=== PATIENT | female | born 1965 | race Caucasian/White ===

== ENCOUNTER 2020-11-11 21:36 | Observation (INO) | payer OTHER, SELFPAY ==
--- NOTE | ~2020-11-11 | XR_ITS ---
XR chest 2V DATE: 11/12/2020 01:39 INDICATION: Shortness of breath, cough, elevated d-dimer TECHNIQUE: AP and lateral views COMPARISON: None FINDINGS: Heart size appears within upper limits of normal. No hilar or mediastinal enlargement is ev ident. No pulmonary infiltrate or consolidation is detected. IMPRESSION: No active cardiopulmonary disease Reviewed, dictated and finalized at location A.
--- NOTE | ~2020-11-11 | CT_ITS ---
EXAMINATION: CTA chest PE protocol DATE: 11/12/2020 03:27 INDICATION: Shortness breath, cough, elevated d-dimer TECHNIQUE: Computed tomography angiography (CTA) of the chest was performed with 100 mL Omnipaque-350 intravenous contrast timed to evaluate the pulmonary arteries. Coronal maximum intensity projection 3D-reconstructions were created by the technologist. Automated exposure control and iterative reconst ruction technique were employed. Exam dose: 874.05 mGy-cm total exam DLP. COMPARISON: 11/12/2020 AP and lateral chest FINDINGS: There is diagnostic contrast enhancement of the pulmonary arteries and mild posterior subse gmental right lower lobe pulmonary embolism. No thoracic aortic aneurysm or dissection. Normal heart size. No pericardial or pleural effusion. Left thyroid goiter with calcification. Calcified left upper lobe and left lower lobe pulmonary granuloma. Calcified left hilar and mediastinal nodes consistent with old granulomatous disease. Mild right mimi r lymph node prominence. Emphysematous changes are noted, particularly at the upper lobes. No pulmonary consolidation. Small sliding hiatal hernia. The adrenal glands are of normal morphology. Included skeletal structures are unremarkable. IMPRESSION: Mild right lower lobe pulmonary embolism Emphysema Left thyroid goiter with calcification Mild right hilar lymph node prominence Old pulmonary granulomatous disease Reviewed, dictated and finalized at Location [facility]. Reviewed, dictated and finalized at location A.
[2020-11-11 21:59] VITALS: BP 135/84; PULSE 79; RESP 20; TEMP 36.4; O2SAT 95
[2020-11-12] VITALS (15 sets, daily range): BP systolic 136–160; BP diastolic 59–81; PULSE 59–79; RESP 16–20; TEMP 36.4–36.9; O2SAT 96–99
--- NOTE | 2020-11-12 00:53 | ED.GENADULT ---
HPI - General Adult General Chief complaint: Unspecified Stated complaint: Shob Time Seen by Provider: 11/12/20 00:45 Source: patient Mode of arrival: ambulatory Limitations: no limitations History of Present Illness HPI narrative: This is a 55 year old female with history of smoking, COPD, CHF who presents for evaluation of shortness of breath. She states she has been on antibiotics for 14 days to treat URI and otitis media. She reports continued shortness of breath since . She was evaluated at [facility] with labs and an xray. She reports she was told she had URI and she was started on Augmentin. She thinks her COVID was negative on . She reports wheezing, sob, chest tightness. She denies fever, chills, nausea or vomiting. She has chronic swelling to her leg. She reports mild nonproductive cough. She uses ProAir inhaler twice a day and Symbicort. Related Data Home Medications Medication Instructions Recorded Confirmed albuterol sulfate 11/12/20 albuterol sulfate [Ventolin HFA] INHALATION 11/12/20 11/12/20 atorvastatin 11/12/20 budesonide-formoterol [Symbicort] INHALATION 11/12/20 bupropion HCl PO 11/12/20 bupropion HCl PO 11/12/20 clonazepam 11/12/20 estradiol mg 11/12/20 fluoxetine mg 11/12/20 furosemide 11/12/20 losartan 11/12/20 ropinirole mg 11/12/20 tiotropium bromide [Spiriva with INHALATION 11/12/20 HandiHaler] Allergies Allergy/AdvReac Type Severity Reaction Status Date / Time No Known Allergies Allergy Mild Verified 11/12/20 07:09 Review of Systems Review of Systems: All systems reviewed & are unremarkable except as noted in HPI and below PMFSH Past Medical History Medical History (Updated 11/12/20 @ 07:53 by Miri Estrada MD) CHF (congestive heart failure) COPD (chronic obstructive pulmonary disease) Family History Family History Other Cerebrovascular accident Family history of alcoholism Social History Social History Smoking packs per day: 1 Smoking cigarettes per day: 20.0 Years smoked: 35 Smoking pack-years: 35.00 Smoking status: Current every day smoker Tobacco type: cigarettes Alcohol intake: former Substance use: never Spiritual care concerns: No Exam Narrative: Exam Narrative: GENERAL: , well-nourished, obese, tachypnea HEAD: Normocephalic, atraumatic EYES: PERRLA and EOMI, conjunctiva clear without discharge NOSE: Nares clear, no rhinorrhea or epistaxis THROAT:Mucous membranes moist, Oropharynx normal without erythema, exudate, peritonsillar swelling or fluctuance NECK: Supple, without lymphadenopathy or mass RESPIRATORY: Airway patent, Respirations non-labored,able to speak in complete sentences, diffuse expiratory wheezing HEART: Regular rate and rhythm. No murmur heard. Normal peripheral pulses. ABDOMEN: Soft, nontender, nondistended, normal active bowel sounds. No masses. No rebound or guarding, No organomegaly. EXTREMITIES: bilateral nonpitting leg swelling normal strength with full range of motion. SKIN: Warm, dry, normal color without rash NEURO: Alert and oriented x3. CN 2-12 grossly intact. No focal deficits. PSYCH: Normal mood and affect. Course Reevaluation(s) Reevaluation #1: PAtient understands that she will be admitted for treatment of COPD and PE. Date: 11/12/20 Time: 04:30 Vital Signs Vital signs: Vital Signs Temperature 97.6 F 11/11/20 21:59 Pulse Rate 79 11/11/20 21:59 Respiratory Rate 20 11/11/20 21:59 Blood Pressure 135/84 11/11/20 21:59 Pulse Oximetry 95 11/11/20 21:59 Temperature 97.6 F 11/11/20 21:59 Pulse Rate 67 11/12/20 05:59 Respiratory Rate 18 11/12/20 05:59 Blood Pressure 138/75 11/12/20 05:59 Pulse Oximetry 97 11/12/20 05:59 Medical Decision Making Vital Signs Vital Signs: Vital Signs Temperature 97.6 F 11/11/20 21:59 Pulse Rate 79 11/11/20 21:59 R
--- NOTE | 2020-11-12 00:56 | ECG_ITS ---
Measurements Intervals [place] Rate: 67 P: 37 WI: 213 QRS: 15 QRSD: 83 T: 33 QT: 417 QTc: 442 Interpretive Statements SINUS RHYTHM WITH FIRST DEGREE AV BLOCK LOW QRS VOLTAGE IN PRECORDIAL LEADS CANNOT RULE OUT SEPTAL INFARCT, AGE INDETERMINATE BASELINE ARTIFACT- I, III, AVR, AVL, AVF ABNORMAL ECG Electronically Signed On 11-12-2020 7:19:11 CDT by Luigi Villarreal D.O.
[2020-11-12] MEDS: ALBUTEROL SULFATE NEB 2.5 MG/0.5 ML INH 5 MG INHALATION (01:03)
[2020-11-12] MEDS: IPRATROPIUM BR 0.02% INH SOLN 0.5 MG/2.5 ML VIAL INHALATION (01:03)
[2020-11-12 01:18] LABS: Alveolar/Arterial O2 Gradient 24.2 mmHg; Base Excess ABG 0.7 mEq/l (+/-2.0); Carboxyhemoglobin 2.6 % THb (0-2.0); Device ROOM AIR; Fractional Inspired Oxygen 21 %; HCO3 ABG 24.9 mEq/l (22.0-26.0); Methemoglobin ABG 0.1 %THb (0-1.5); Modified Allen's Test Pass; Oxygen Content ABG 17.1 %vol (16.0-22.0); Oxyhemoglobin 93.2 % THb (90.0-100.0); PCO2 ABG 38.6 mmHg (35.0-45.0); PO2 ABG 79.3 mmHg (80.0-100.0); PO2 FiO2 Ratio Arterial Blood 3.78 %; Reduced Hemoglobin 4.1 %THb (0-5.0); Site Drawn RIGHT RADIAL; pH ABG 7.428 (7.350-7.450)
[2020-11-12] MEDS: predniSONE 20 MG TABLET 60 MG PO (01:44)
[2020-11-12 02:27] LABS: Basophils Absolute Auto 0.1 K/mm3 (0.0-0.1); Basophils Percent Auto 0.4 % (0.2-1.2); Eosinophils Absolute Auto 0.3 K/mm3 (0-0.3); Eosinophils Percent Auto 1.9 % (0-4.4); Hematocrit 40.5 % (37.0-47.0); Hemoglobin 12.8 g/dL (12.0-15.0); Immature Granulocyte Absolute 0.06 K/mm3 (0.00-0.031); Immature Granulocyte Percent A 0.4 % (0-0.5); Lymphocytes Absolute Auto 5.49 K/mm3 (0.9-3.2); Lymphocytes Percent Auto 40.9 % (18.3-44.2); Mean Corpuscular HGB Conc 31.6 g/dl (32-36); Mean Corpuscular Hemoglobin 25.8 pg (26-34); Mean Corpuscular Volume 81.7 fl (80-100); Monocytes Percent Auto 7.2 % (2.6-8.5); Neutrophils Absolute Auto 6.6 K/mm3 (1.3-6.7); Neutrophils Percent Auto 49.2 % (45.5-73.1); Platelet Count Result 261 k/mm3 (150-375); Red Blood Count 4.96 M/mm3 (4.2-5.4); Red Cell Distribution Width 14.6 % (11.5-14.5); White Blood Count 13.4 K/mm3 (4.5-10.0)
[2020-11-12 02:31] LABS: INR 0.9
[2020-11-12 02:32] LABS: Alanine Aminotransferase 18 U/L (4-35); Alkaline Phosphatase 136 U/L (38-126); Anion Gap 8 mmol/L (8-16); Aspartate Amino Transferase 27 U/L (14-36); Bilirubin,Total 0.2 mg/dL (0.2-1.3); Blood Urea Nitrogen 12 mg/dL (7-17); Calcium 9.1 mg/dL (8.4-10.2); Carbon Dioxide 26 mmol/L (22-30); Chloride 105 mmol/L (98-107); Estimated CRCL calculation 75 ml/min; Estimated Glomerular Filt Rate > 60; Glucose 111 mg/dL (65-105); Partial Thromboplastin Time 34.3 SECONDS (22.3-36.8); Potassium 3.6 mmol/L (3.4-5.0); Sodium 139 mmol/L (137-145)
[2020-11-12 02:34] LABS: D Dimer 0.86 ug/mL (<0.48)
[2020-11-12 02:40] LABS: Troponin I < 0.012 ng/mL (0.000-0.034)
[2020-11-12 02:41] LABS: NT Pro B Type Natriuretic Pept 161 PG/ML (5-100)
[2020-11-12 02:46] LABS: Platelet Estimate Adequate (Adequate)
[2020-11-12 02:47] LABS: Atypical Lymphocytes Present
[2020-11-12] MEDS: ENOXAPARIN 100 MG/ML SYRINGE SUB-Q (06:28)
--- NOTE | 2020-11-12 06:45 | PC.NURSE ---
This patient, Lela Molina, was admitted to [facility] Surg Room 309-01. Patient/family oriented to hospital policies and general routines including ID bracelet, bed and alarms, visiting hours, pain management, procedures, bathroom and other care routines, personal items, smoking policy, room service/diet, and visiting hours. Information on how to activate the Rapid Response Team has been discussed. Patient/Family are encouraged to report perceived risks to care and to ask questions if they do not understand what they are told or what they should do.
--- NOTE | 2020-11-12 15:38 | PM.IMPN ---
Progress Note: A&P Assessment and Plan (1) Pulmonary embolism: Code(s): I26.99 - Other pulmonary embolism without acute cor pulmonale Status: Acute Assessment and Plan: Mild right lower lobe pulmonary embolism Subsegmental PE as seen on CTA, Pt stated on xarelto (2) COPD (chronic obstructive pulmonary disease): Code(s): J44.9 - Chronic obstructive pulmonary disease, unspecified Status: Acute Assessment and Plan: Pt started on breathing treatment for wheezy lungs, monitor tonite and discharge tomorrow AM. (3) CHF (congestive heart failure): Code(s): I50.9 - Heart failure, unspecified Status: Inactive Assessment and Plan: Increase to Lasix 40 mg po daily. Pt to immobilse with Physical theraphy. Pt to [place] cardi[place]. Wants to establish PCp here. (4) Tobacco abuse: Code(s): Z72.0 - Tobacco use Status: Acute Assessment and Plan: Nicitine patch offered, pt advised to quit smoking Subjective Date/time seen: 11/12/20 15:38 Interval history: 55 year old female with history of smoking, COPD, CHF who presents for evaluation of shortness of breath. Pt usually sees [place] doctors. Pt states she has been on antibiotics for ear infection and URI. Pt felt sob came in to hospital for evaluation. Pt denies covid exposure has been tested negative herself. Pt is a heavy smoker, daughter would like her to quit. Pt states she feels mild SOB and wheezy chest and pain in her back. Review of Systems Review of Systems: All systems reviewed & are unremarkable except as noted in HPI and below Exam Const: General: cooperative and healthy appearing; No in distress Nutritional Appearance: other (morbidly obese ) Orientation/consciousness: oriented to person HENMT: Head: normal to inspection Resp: Effort & Inspection: no respiratory distress Auscultation: no rhonchi and wheezes (BL wheezy lungs ) Cardio: Rate: regular rate Rhythm: regular rhythm GI: Inspection: normal to inspection GI Palp: No abdominal tenderness, No Guarding due to palpation present (GI) and No Hepatomegaly present Auscultation: normal bowel sounds Neuro: General: oriented to person Extrem: General: pedal edema present (3+ pitting edema ) Objective Data Vital Signs Vital Signs: Vital Signs - 24 hr 11/11/20 21:59 11/12/20 01:01 11/12/20 01:20 Temperature 36.4 C Pulse Rate 79 60 67 Respiratory Rate 20 18 20 Blood Pressure 135/84 Pulse Oximetry 95 11/12/20 01:46 11/12/20 02:48 11/12/20 04:49 Temperature Pulse Rate 72 72 69 Respiratory Rate 18 20 20 Blood Pressure 160/81 H 148/72 H 144/78 H Pulse Oximetry 96 98 96 11/12/20 05:59 11/12/20 08:00 11/12/20 08:54 Temperature Pulse Rate 67 70 70 Respiratory Rate 18 18 Blood Pressure 138/75 Pulse Oximetry 97 96 11/12/20 14:00 Temperature 36.9 C Pulse Rate 70 Respiratory Rate 16 Blood Pressure 151/59 H Pulse Oximetry 96 Intake/Output Intake/Output: Intake & Output 11/09/20 11/10/20 11/11/20 11/12/20 23:59 23:59 23:59 23:59 Intake Total 240 Balance 240 Meds/Results Medications: Active Medications Generic Name Dose Route Start Last Admin Trade Name Freq PRN Reason Stop Dose Admin Hydrocodone Bitart/Acetaminophen 1 tab 11/12/20 12:41 Hydrocodone/Acetaminophen (*Crx) 10-325 Mg Tablet PO Q12H PRN Pain Rated 7-10 Albuterol 2 puff 11/12/20 12:41 Albuterol Sulfate (*Sp) Aerosol 1 Puff INHALATION PRN PRN Shortness Of Breath Or Wheezing Albuterol 2.5 mg 11/12/20 12:43 Albuterol Sulfate Neb 2.5 Mg/0.5 Ml Inh INHALATION Q6HRT PRN Shortness Of Breath Budesonide/Formoterol Fumarate 2 puff 11/12/20 20:00 Budesonide/Form 160-4.5 Mcg (*Sp) INHALATION Q12HRT KATHERINE Buspirone HCl 5 mg 11/12/20 21:00 Buspirone Hcl 5 Mg Tablet PO Q12HR KTAHERINE Clonazepam 1 mg 11/13/20 09:00 Clonazepam (*Crx) 0
[2020-11-12] MEDS: NICOTINE (*PBKC) 21 MG PATCH 1 PATCH TRANSDERM (16:37)
[2020-11-12] MEDS: RIVAROXABAN 15 MG TABLET PO (16:37)
[2020-11-12] MEDS: busPIRone HCL 5 MG TABLET PO (20:50)
[2020-11-12] MEDS: rOPINIRole HCL 1 MG TABLET PO (20:50)
[2020-11-12] MEDS: HYDROcodone/acetaminophen (*CRX) 10-325 MG TABLET 1 TAB PO (21:06)
[2020-11-12] MEDS: hydrOXYzine HCL 10 MG TABLET PO (21:07)
[2020-11-13] VITALS: PULSE 71
[2020-11-13 04:00] VITALS: PULSE 64
[2020-11-13 06:00] VITALS: BP 129/76; PULSE 60; RESP 20; TEMP 36.4; O2SAT 98
[2020-11-13 08:00] VITALS: PULSE 60; PULSE 62; RESP 20; O2SAT 98
[2020-11-13] MEDS: FLUoxetine HCL 20 MG CAPSULE 60 MG PO (08:46)
[2020-11-13] MEDS: RIVAROXABAN 15 MG TABLET PO (08:47)
[2020-11-13] MEDS: POTASSIUM CHLORIDE 20 MEQ TABLET.ER PO (08:47)
[2020-11-13] MEDS: hydrOXYzine HCL 10 MG TABLET PO (08:47)
[2020-11-13] MEDS: busPIRone HCL 5 MG TABLET PO (08:47)
[2020-11-13] MEDS: FUROSEMIDE 40 MG TABLET PO (08:47)
[2020-11-13] MEDS: LOSARTAN POTASSIUM 50 MG TABLET PO (08:47)
[2020-11-13] MEDS: NICOTINE (*PBKC) 21 MG PATCH 1 PATCH TRANSDERM (08:48)
[2020-11-13] MEDS: clonazePAM (*CRX) 0.5 MG TABLET 1 MG PO (08:51)
[2020-11-13] MEDS: HYDROcodone/acetaminophen (*CRX) 10-325 MG TABLET 1 TAB PO (08:51)
[2020-11-13 12:00] VITALS: PULSE 57
--- NOTE | 2020-11-13 12:05 | PM.DS ---
DS: Admitting Diagnosis Admitting Diagnosis Admitting Diagnosis: SOB DS: Discharge Diagnosis Discharge Diagnosis (1) Pulmonary embolism: Code(s): I26.99 - Other pulmonary embolism without acute cor pulmonale Status: Acute Assessment and Plan: Mild right lower lobe pulmonary embolism Subsegmental PE as seen on CTA, Pt stated on xarelto, F/u Apt given with her PCP in 1 months time. (2) COPD (chronic obstructive pulmonary disease): Code(s): J44.9 - Chronic obstructive pulmonary disease, unspecified Status: Acute Assessment and Plan: Pt started on breathing treatment for wheezy lungs, monitor overnite given breathing treatments and discharged (3) CHF (congestive heart failure): Code(s): I50.9 - Heart failure, unspecified Status: Inactive Assessment and Plan: Increase to Lasix 40 mg po daily. Pt to immobilse with Physical theraphy. Pt to follow with [place] cardiology [place]. Wants to establish PCp here. (4) Tobacco abuse: Code(s): Z72.0 - Tobacco use Status: Acute Assessment and Plan: Nicitine patch offered, pt advised to quit smoking DS: Summary Hospital Course Hospital Course: 55 year old female with history of smoking, COPD, CHF who presents for evaluation of shortness of breath. Pt usually sees [facility]. Pt states she has been on antibiotics for ear infection and URI. Pt felt sob came in to hospital for evaluation. Pt denies covid exposure has been tested negative herself. Pt adviced to quit smoking. Pt did well on breathing treatments was started on xarelto in the hospital F/u apt given with her PCp. Time Spent with Patient Time attestation: Total time spent providing and/or coordinating discharge services:40 minutes on day of discharge Exam Const: General: cooperative Nutritional Appearance: other (morbidly obese ) Orientation/consciousness: oriented to person HENMT: Head: normal to inspection Resp: Effort & Inspection: no respiratory distress Auscultation: no rhonchi and no wheezes Cardio: Rate: regular rate Rhythm: regular rhythm GI: Inspection: normal to inspection Auscultation: normal bowel sounds Neuro: General: oriented to person Extrem: General: pedal edema present (3+ pitting edema ) Discharge Plan Discharge Attending physician on discharge: Lay Hurst Discharging Clinician: Grandhi,Lay R. Anticipated Discharge Date/Time: 11/13/20 11:54 Patient Disposition: Home, Self-Care Activity: as tolerated Diet: heart healthy Discharge Instructions: ADVISED TO QUIT SMOKING Pt want to establish with PCP here in [place] Please provide her with phone numbers FOLLOW WITH PRIMARY CARE in [address] THOMPSON PCP Xarelto 15 mg po bid for 3 weeks then needs to use 20 mg po qdaily Patient Instructions: Antibiotic Form, Enoxaparin (By injection), Rivaroxaban (By mouth), Pulmonary Embolism (DC), How to Stop Smoking (DC), Cigarette Smoking and Your Health (GEN), COPD (Chronic Obstructive Pulmonary Disease) (DC) Stand Alone Forms: General Discharge Information Follow-up/Referrals: [place],DAVINA Ramos [Primary Care Provider] - (pt started on xarelto. needs for up in 4 weeks ) Discharge Medications: New nicotine [Nicoderm CQ] 21 mg/24 hr Patch 24 Hour 1 patch transdermal QAM Qty: 28 RF: 0 buspirone 5 mg Tablet 5 mg PO Q12HR Qty: 60 RF: 2 Xarelto 15 mg Tablet 15 mg PO BID Qty: 40 RF: 0 Continued losartan 50 mg tablet 50 mg PO DAILY RF: 0 ropinirole 1 mg tablet 1 mg PO HS RF: 0 clonazepam 1 mg tablet 1 mg PO DAILY RF: 0 furosemide 20 mg tablet 20 mg PO DAILY RF: 0 albuterol sulfate [Ventolin HFA] 90 mcg/actuation HFA aerosol inhaler 2 puff INHALATION PRN PRN (Reason: Shortness Of Breath Or Wheezing) RF: 0 budesonide-formoterol [Symbicort] 160-4.5 mcg/actuation HFA aerosol inhaler 2 puff INHALATION BID RF: 0 f
[2020-11-13 14:00] VITALS: BP 131/74; PULSE 63; RESP 16; TEMP 36.7; O2SAT 100
== END 2020-11-13 15:00 | disposition home or self-care (01) ==
LOC: ANHED 11-12 01:04 → ANH3MEDSUR 11-12 07:10
PROVIDERS: Admitting Provider Internal Medicine; Emergency Provider General Practice; PCP Physician Assistant; Visit Provider Family Medicine
DX: I26.99 Other pulmonary embolism without acute cor pulmonale (principal); J44.9 Chronic obstructive pulmonary disease, unspecified; I50.9 Heart failure, unspecified; F17.210 Nicotine dependence, cigarettes, uncomplicated
CPT/HCPCS: 36415; 36600; 71046; 71275; 80053; 82375; 82805; 83050; 83880; 84484; 85025; 85380; 85610; 85730; 93005; 94640; 96372; 99291; A9270; G0378; G0379; J1650; J7512; Q9967

== ENCOUNTER 2020-12-27 18:32 | Emergency (ER) | payer OTHER, SELFPAY ==
[2020-12-27] VITALS (10 sets, daily range): BP systolic 129–173; BP diastolic 60–95; PULSE 68–80; RESP 14–24; TEMP 37.1; O2SAT 95–100
--- NOTE | ~2020-12-27 | XR_ITS ---
XR chest 2V DATE: 12/27/2020 19:16 INDICATION: Shortness of breath TECHNIQUE: AP and lateral views COMPARISON: 11/12/2020 chest 11/12/2020 CT pulmonary scan FINDINGS: No infiltrate or consolidation, pleural effusion or pulmonary vascular congestion or pneumo thorax. Heart size is borderline. IMPRESSION: No active pulmonary disease Reviewed, dictated and finalized at location A. IMPRESSION: No active pulmonary disease
--- NOTE | ~2020-12-27 | CT_ITS ---
CT soft tissue neck wo con DATE: 12/27/2020 19:36 INDICATION: Dyspnea. Laryngitis. Cough, shortness of breath, chest tightness. TECHNIQUE: Computerized tomographic axial images performed noncontrast through the neck. Sagittal and coronal reconstructions. Exam dose: 617.49 mGy-cm total exam DLP. COMPARISON: 12/2020 2 view chest / CT pulmonary scan FINDINGS: 1.3 cm mucous retention cyst or polyp along the lower lateral wall of the left maxillary si nus. Included paranasal sinuses are otherwise unremarkable. No parotid gland or left submandibular gland mass lesion. The right submandibular gland is present. Left thyroid goiter and calcifications. No cervical mass lesion or lymphadenopathy. No superior mediastinal mass lesion or lymphadenopathy. The airway is patent. Left hilar and aortopulmonary window calcified lymph nodes and calcified left u pper lobe granuloma consistent with old pulmonary granulomatous disease Emphysematous changes of the lungs. Normal alignment of the cervical and upper thoracic spine. IMPRESSION: Left thyroid goiter 1.3 cm mucous retention cyst or polyp of left maxillary sinus Emphysema Reviewed, dictated and finalized at Location A. Reviewed, dictated and finalized at location A.
--- NOTE | 2020-12-27 18:52 | ECG_ITS ---
Measurements Intervals [place] Rate: 77 P: 39 [place]: 175 QRS: 2 QRSD: 81 T: 38 QT: 392 QTc: 444 Interpretive Statements SINUS RHYTHM LOW QRS VOLTAGE IN PRECORDIAL LEADS DELAYED PRECORDIAL R/S TRANSITION BASELINE ARTIFACT- I, II, III, AVR, AVL, AVF, V1-V3 BORDERLINE ECG Electronically Signed On 12-27-2020 20:35:01 CDT by Luigi Villarreal D.O.
[2020-12-27 19:06] LABS: Basophils Absolute Auto 0.1 K/mm3 (0.0-0.1); Basophils Percent Auto 0.6 % (0.2-1.2); Eosinophils Absolute Auto 0.2 K/mm3 (0-0.3); Hematocrit 28.4 % (37.0-47.0); Hemoglobin 8.3 g/dL (12.0-15.0); Immature Granulocyte Absolute 0.04 K/mm3 (0.00-0.031); Immature Granulocyte Percent A 0.4 % (0-0.5); Lymphocytes Absolute Auto 3.22 K/mm3 (0.9-3.2); Lymphocytes Percent Auto 35.4 % (18.3-44.2); Mean Corpuscular HGB Conc 29.2 g/dl (32-36); Mean Corpuscular Hemoglobin 22.7 pg (26-34); Mean Corpuscular Volume 77.8 fl (80-100); Mean Platelet Volume 10.3 fl (7.4-10.4); Monocytes Absolute Auto 0.8 K/mm3 (0.1-0.6); Monocytes Percent Auto 8.9 % (2.6-8.5); Neutrophils Absolute Auto 4.8 K/mm3 (1.3-6.7); Neutrophils Percent Auto 52.7 % (45.5-73.1); Nucleated Red Blood Cells Perc 0.4 % (0.0-0.2); Platelet Count Result 286 k/mm3 (150-375); Red Blood Count 3.65 M/mm3 (4.2-5.4); Red Cell Distribution Width 15.8 % (11.5-14.5); White Blood Count 9.1 K/mm3 (4.5-10.0)
--- NOTE | 2020-12-27 19:07 | PC.NURSE ---
Report to Luis M POSADA, to continue care.
[2020-12-27 19:18] LABS: Hypochromasia 1+ (NORMAL); INR 1.8; Platelet Estimate Adequate (Adequate); Prothrombin Time 21.2 Seconds (11.1-14.7)
[2020-12-27 19:19] LABS: Partial Thromboplastin Time 38.4 SECONDS (22.3-36.8)
[2020-12-27 19:22] LABS: Anion Gap 11 mmol/L (8-16); Blood Urea Nitrogen 13 mg/dL (7-17); Calcium 9.2 mg/dL (8.4-10.2); Carbon Dioxide 23 mmol/L (22-30); Chloride 108 mmol/L (98-107); Estimated CRCL calculation 74 ml/min; Estimated Glomerular Filt Rate > 60; Glucose 146 mg/dL (65-105); Potassium 4.2 mmol/L (3.4-5.0); Sodium 142 mmol/L (137-145)
[2020-12-27] MEDS: racEPINEPHrine 2.25% NEBU SOLN 0.5 ML VIAL.NEB INHALATION (19:27)
[2020-12-27 19:37] LABS: Alveolar/Arterial O2 Gradient 35.1 mmHg; Fractional Inspired Oxygen 21 %; HCO3 ABG 25.6 mEq/l (22.0-26.0); Oxygen Content ABG 11.2 %vol (16.0-22.0); Oxygen Saturation ABG 93.4 % (95.0-100.0); PCO2 ABG 40.6 mmHg (35.0-45.0); PO2 FiO2 Ratio Arterial Blood 3.14 %; Total Hemoglobin 8.8 g/dL (12.0-18.0); pH ABG 7.417 (7.350-7.450)
[2020-12-27 19:38] LABS: Device ROOM AIR; Modified Allen's Test Pass; Site Drawn RIGHT RADIAL
--- NOTE | 2020-12-27 19:56 | ED.SOB ---
HPI - SOB/Dyspnea General Chief Complaint: Shortness of Breath/Dyspnea Stated Complaint: Chest Tightness ,Hx PE 2 months ago Time Seen by Provider: 12/27/20 18:53 Source: patient Mode of arrival: ambulatory Limitations: no limitations History of Present Illness HPI Narrative: 55-year-old female History of COPD Also recently diagnosed here with a subsegmental pulmonary embolism which she is being anticoagulated for She complains of increased shortness of breath since yesterday She does not have a fever or a cough, and she really does not have any wheezing, but she feels like her chest is tight, her throat is tight, and that she is hoarse and having difficulty speaking although she is not having difficulty eating or swallowing, and overall notes that she feels like shit She smokes, about 1/2 pack a day, and she has not received a Covid vaccination because she wants to see better results before she gets it Related Data Home Medications Medication Instructions Recorded Confirmed albuterol sulfate [Ventolin HFA] 2 puff INHALATION PRN PRN 11/12/20 11/12/20 budesonide-formoterol [Symbicort] 2 puff INHALATION BID 11/12/20 11/12/20 clonazepam 1 mg PO DAILY 11/12/20 11/12/20 fluoxetine 60 mg PO DAILY 11/12/20 11/12/20 furosemide 20 mg PO DAILY 11/12/20 11/12/20 hydrocodone-acetaminophen 1 tablet PO Q12H PRN 11/12/20 11/12/20 hydroxyzine HCl 10 mg PO TID PRN 11/12/20 11/12/20 losartan 50 mg PO DAILY 11/12/20 11/12/20 potassium chloride 20 meq PO DAILY 11/12/20 11/12/20 ropinirole 1 mg PO HS 11/12/20 11/12/20 sumatriptan succinate 100 mg PO PRN PRN 11/12/20 11/12/20 Allergies Allergy/AdvReac Type Severity Reaction Status Date / Time No Known Allergies Allergy Mild Verified 12/27/20 18:44 Review of Systems Review of Systems: All systems reviewed & are unremarkable except as noted in HPI and below Constitutional: Constitutional: Reports no additional constitutional complaints, Denies chills, Reports fatigue, Denies fever(s), Denies headache(s) and Reports weakness Eyes: Eyes: Reports no additional eye complaints and Denies change in vision ENT: Denies headache(s) and Denies sore throat Comments: Hoarseness Cardiovascular: Cardiovascular: Reports chest pain (Tightness) and Denies dyspnea Respiratory: Respiratory: Denies cough, Reports dyspnea and Denies wheezing Gastrointestinal: Gastrointestinal: Denies abdominal pain, Denies diarrhea and Denies vomiting Genitourinary: Genitourinary: Denies urinary frequency and Denies dysuria Musculoskeletal: Musculoskeletal: Reports myalgias, Denies deformity, Denies arthralgias, Denies joint swelling and Denies numbness Integumentary/Breasts: Skin/Breast: Denies rash and Denies wounds Neurologic: Denies headache(s), Denies focal weakness and Denies numbness Psychiatric: Psychiatric: Reports no additional psychiatric complaints Endocrine: Endocrine: Reports no additional endocrine complaints Hematologic/Lymphatic: Hematologic/Lymphatic: Reports no additional hematologic/lymphatic complaints Allergic/Immunologic: Allergic/Immunologic: Reports no additional allergic/immunologic complaints [facility] Past Medical History Medical History (Updated 12/27/20 @ 21:55 by Braxton Rios MD) CHF (congestive heart failure) COPD (chronic obstructive pulmonary disease) Family History Family History Other Cerebrovascular accident Family history of alcoholism Social History Social History Smoking packs per day: 1 Smoking cigarettes per day: 20.0 Years smoked: 35 Smoking pack-years: 35.00 Smoking status: Current every day smoker Tobacco type: cigarettes Alcohol intake: former Substance use: never Spiritual care concerns: No Exam Const: General: cooperative and alert Nutritional Appearance: obese Orientation/consciousness: patient oriented x3 (alert) HENMT: Head: normal to inspection, normocephal
[2020-12-28 04:06] LABS: Thyroid Stimulating Hormone Reflex < 0.015 uIU/mL (0.465-4.68)
[2020-12-28 05:22] LABS: Total Triiodothyronine (T3) 2.05 NG/ML (0.97-1.69)
== END 2020-12-27 22:24 | disposition home or self-care (01) ==
PROVIDERS: Emergency Provider Emergency Medicine; PCP Physician Assistant
DX: J44.9 Chronic obstructive pulmonary disease, unspecified (principal); J04.0 Acute laryngitis; I50.9 Heart failure, unspecified; Z86.711 Personal history of pulmonary embolism; Z79.01 Long term (current) use of anticoagulants; F17.210 Nicotine dependence, cigarettes, uncomplicated; R94.31 Abnormal electrocardiogram [ECG] [EKG]; E04.9 Nontoxic goiter, unspecified; R93.89 Abnormal findings on diagnostic imaging of other specified body structures
CPT/HCPCS: 36415; 36600; 70490; 71046; 80048; 82805; 84439; 84443; 84480; 85025; 85610; 85730; 93005; 94640; 96374; 99284; J1100

== ENCOUNTER 2021-09-09 19:43 | Emergency (ER) | payer OTHER, SELFPAY ==
[2021-09-09] VITALS (10 sets, daily range): BP systolic 129–182; BP diastolic 55–97; PULSE 68–84; RESP 15–21; TEMP 36.4–36.9; O2SAT 95–99
--- NOTE | ~2021-09-09 | CT_ITS ---
EXAMINATION: CT brain wo con DATE: 09/09/2021 21:45 INDICATION: Weakness. TECHNIQUE: Computed tomography (CT) of the head was performed without intravenous contrast. Sagittal and coronal reconstructions were performed. The mA was adjusted according to patient size. Iterative reconstruction technique was employed. The dose-length product was 605.33 mGy-cm. COMPARISON: None FINDINGS: No acute intracranial hemorrhage, acute infarction or abnormal extra axial fluid collection. Ventricl es are normal and symmetric. No mass/mass effect. Mucous retention cyst in the left maxillary sinus. The orbits and mastoid air cells are normal. IMPRESSION: 1. No acute intracranial process. Reviewed, dictated and finalized at location A. H CLEANER
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
--- NOTE | ~2021-09-09 | XR_ITS ---
EXAMINATION: XR chest 1V portable DATE: 09/09/2021 21:14 INDICATION: COPD and congestive heart failure presenting with bilateral leg weakness. TECHNIQUE: frontal view of the chest was obtained. COMPARISON: Chest radiograph dated 12/27/[address] dated 11/12/2020 FINDINGS: A couple calcified nodules at the left lung base along with calcified left hilar and mediastinal lymp h nodes consistent with old granulomatous disease. No focal airspace opacities, pulmonary edema, pleu ral effusion or pneumothorax. The cardiomediastinal silhouette is normal. IMPRESSION: 1. No acute cardiopulmonary disease. Reviewed, dictated and finalized at location A. OL NURSE
--- NOTE | 2021-09-09 20:58 | ECG_ITS ---
Measurements Intervals [place] Rate: 70 P: 56 RI: 174 QRS: -4 QRSD: 88 T: 21 QT: 415 QTc: 449 Interpretive Statements SINUS RHYTHM ATRIAL PREMATURE COMPLEXES DELAYED PRECORDIAL R/S TRANSITION LOW QRS VOLTAGE IN PRECORDIAL LEADS BORDERLINE ECG Electronically Signed On 09-10-2021 7:07:55 INCREMENT MANAGER by Luigi Villarreal D.O.
--- NOTE | 2021-09-09 20:58 | ED.BACK ---
HPI - Back Pain/Injury General Chief Complaint: Back Pain/Injury Stated Complaint: not feeling right Time Seen by Provider: 09/09/21 20:58 Source: patient Mode of arrival: ambulatory Limitations: no limitations History of Present Illness HPI Narrative: Patient is a 56-year-old female with a history of congestive heart failure, COPD, DVT on anticoagulation, presenting for evaluation of numerous symptoms. Patient states that she has felt unwell over the past several weeks. Patient reports general malaise, nonspecific weakness. She reports she has not had fever or chills. Does report shortness of breath, denies significant cough. She denies any current chest pain. Patient states she has been compliant with anticoagulation. She reports bilateral lower extremity swelling, denies bilateral lower extremity calf pain. Denies redness. Patient also reports lower back pain that is worse with movement. She reports chronic back pain over the past several weeks. She reports pain with bending, denies recent fall or injury. Reports pain radiates down her bilateral buttocks. Related Data Home Medications Medication Instructions Recorded Confirmed albuterol sulfate [Ventolin HFA] 2 puff INHALATION PRN PRN 11/12/20 11/12/20 budesonide-formoterol [Symbicort] 2 puff INHALATION BID 11/12/20 11/12/20 clonazepam 1 mg PO DAILY 11/12/20 11/12/20 fluoxetine 60 mg PO DAILY 11/12/20 11/12/20 furosemide 20 mg PO DAILY 11/12/20 11/12/20 hydrocodone-acetaminophen 1 tablet PO Q12H PRN 11/12/20 11/12/20 hydroxyzine HCl 10 mg PO TID PRN 11/12/20 11/12/20 losartan 50 mg PO DAILY 11/12/20 11/12/20 potassium chloride 20 meq PO DAILY 11/12/20 11/12/20 ropinirole 1 mg PO HS 11/12/20 11/12/20 sumatriptan succinate 100 mg PO PRN PRN 11/12/20 11/12/20 Allergies Allergy/AdvReac Type Severity Reaction Status Date / Time No Known Allergies Allergy Mild Verified 09/09/21 20:59 Review of Systems Review of Systems: CONSTITUTIONAL: Denies fever, chills, or sweats. EYES: Denies visual changes, redness, or discharge. ENT: Denies rhinorrhea, congestion, sore throat, or otalgia. CARDIOVASCULAR: Denies chest pain, palpitations, or edema. RESPIRATORY: Reports shortness of breath, denies significant cough GASTROINTESTINAL: Denies abdominal pain, nausea, vomiting, or diarrhea. GENITOURINARY: Denies dysuria or hematuria. SKIN: Denies rash or itching. MUSCULOSKELETAL: Reports lower back pain, reports thigh pain, reports myalgias NEUROLOGIC: Reports mild headache without numbness, reports feeling diffusely weak PMFSH Past Medical History Medical History CHF (congestive heart failure) COPD (chronic obstructive pulmonary disease) Family History Family History Other Cerebrovascular accident Family history of alcoholism Social History Social History Smoking packs per day: 1 Smoking cigarettes per day: 20.0 Years smoked: 35 Smoking pack-years: 35.00 Smoking status: Current every day smoker Tobacco type: cigarettes Alcohol intake: former Substance use: never Spiritual care concerns: No Exam Narrative: GENERAL: Awake, alert, conversant HEAD: Normocephalic, atraumatic. EYES: PERRLA and EOMI. ENT: Nares clear, no rhinorrhea or epistaxis. Mucous membranes moist. NECK: Supple. No midline cervical pain. CHEST: No respiratory distress, patient with expiratory wheezing bilateral lower lobes HEART: Regular rate, sinus rhythm ABDOMEN:Non distended, non tender EXTREMITIES: Normal range of motion. Bilateral lower extremity pitting edema 1+ to the mid shins. SKIN: Warm, dry, no rash. NEURO:No focal deficits. Alert and oriented x3. EOMs intact without nystagmus. No facial droop/asymmetry noted bilaterally. Grimace intact. Intact sensation in face. Hearing intact bilaterally. Shoulder shrug intact. Strength 5/5
[2021-09-09] MEDS: ACETAMINOPHEN 500 MG TABLET 1000 MG PO (21:17)
[2021-09-09] MEDS: ALBUTEROL SULFATE NEB 2.5 MG/0.5 ML INH 5 MG INHALATION (21:23)
[2021-09-09] MEDS: IPRATROPIUM BR 0.02% INH SOLN 0.5 MG/2.5 ML VIAL INHALATION (21:23)
--- NOTE | 2021-09-09 21:36 | PC.NURSE ---
Pt to XRAY via stretcher at this time.
[2021-09-09] MEDS: IBUPROFEN 400 MG TABLET PO (21:52)
[2021-09-09 21:53] LABS: Basophils Absolute Auto 0.1 K/mm3 (0.0-0.1); Basophils Percent Auto 0.6 % (0.2-1.2); Eosinophils Absolute Auto 0.2 K/mm3 (0-0.3); Eosinophils Percent Auto 2.8 % (0-4.4); Hematocrit 37.3 % (37.0-47.0); Hemoglobin 11.7 g/dL (12.0-15.0); Immature Granulocyte Absolute 0.03 K/mm3 (0.00-0.031); Immature Granulocyte Percent A 0.3 % (0-0.5); Lymphocytes Absolute Auto 3.76 K/mm3 (0.9-3.2); Lymphocytes Percent Auto 43.3 % (18.3-44.2); Mean Corpuscular HGB Conc 31.4 g/dl (32-36); Mean Corpuscular Hemoglobin 26.6 pg (26-34); Mean Corpuscular Volume 84.8 fl (80-100); Mean Platelet Volume 10.3 fl (7.4-10.4); Monocytes Absolute Auto 0.8 K/mm3 (0.1-0.6); Monocytes Percent Auto 8.9 % (2.6-8.5); Neutrophils Absolute Auto 3.8 K/mm3 (1.3-6.7); Neutrophils Percent Auto 44.1 % (45.5-73.1); Platelet Count Result 242 k/mm3 (150-375); Red Cell Distribution Width 14.8 % (11.5-14.5); White Blood Count 8.7 K/mm3 (4.5-10.0)
[2021-09-09] MEDS: methylPREDNISolone SOD SUCC 125 MG VIAL IV PUSH (21:53)
[2021-09-09 21:57] LABS: Add Urine Microscopic? NO; Appearance Urine Clear (Clear); Bilirubin Urine Negative (Negative); Blood Urine Negative (Negative); Color Urine Yellow (Yellow); Glucose Urine UA Negative (Negative); Ketones Urine Negative (Negative); Leukocyte Esterase Ur Negative LEU/UL (Negative); Nitrate Urine Negative (Negative); Protein Urine Negative (Negative); Specific Grav Ur 1.015 (1.001-1.035); Urobilinogen Urine Negative mg/dL (<2.0)
[2021-09-09 22:05] LABS: Partial Thromboplastin Time 49.5 SECONDS (22.3-36.8)
[2021-09-09 22:11] LABS: Alanine Aminotransferase 28 U/L (4-35); Albumin Level 3.9 g/dL (3.5-5.1); Alkaline Phosphatase 139 U/L (38-126); Anion Gap 7 mmol/L (8-16); Aspartate Amino Transferase 36 U/L (14-36); Bilirubin,Total 0.5 mg/dL (0.2-1.3); Blood Urea Nitrogen 12 mg/dL (7-17); Carbon Dioxide 26 mmol/L (22-30); Chloride 104 mmol/L (98-107); Creatine Kinase 79 U/L (30-135); Estimated CRCL calculation 78 ml/min; Estimated Glomerular Filt Rate > 60; Glucose 109 mg/dL (65-110); INR 2.5; Potassium 4.1 mmol/L (3.4-5.0); Prothrombin Time 26.3 Seconds (11.1-14.7); Sodium 137 mmol/L (137-145)
[2021-09-09 22:16] LABS: SARS-CoV-2 RNA PCR Negative
[2021-09-09 22:20] LABS: NT Pro B Type Natriuretic Pept 997 pg/mL (5-100)
[2021-09-09 22:23] LABS: Troponin I < 0.012 ng/mL (0.000-0.034)
[2021-09-09] MEDS: FUROSEMIDE INJ 40 MG/4 ML VIAL 20 MG IV PUSH (22:36)
[2021-09-09 22:41] LABS: Thyroid Stimulating Hormone 0.028 uIU/mL (0.465-4.680)
== END 2021-09-09 22:51 | disposition home or self-care (01) ==
LOC: ANHED 22:10
PROVIDERS: Emergency Provider Emergency Medicine; PCP Physician Assistant
DX: R53.1 Weakness (principal); J44.1 Chronic obstructive pulmonary disease with (acute) exacerbation; Z20.822 Contact with and (suspected) exposure to COVID-19; I50.9 Heart failure, unspecified; Z86.718 Personal history of other venous thrombosis and embolism; Z79.01 Long term (current) use of anticoagulants; F17.210 Nicotine dependence, cigarettes, uncomplicated; M47.816 Spondylosis without myelopathy or radiculopathy, lumbar region; I49.1 Atrial premature depolarization
CPT/HCPCS: 36415; 70450; 71045; 72100; 80053; 81003; 82550; 83880; 84443; 84484; 85025; 85610; 85730; 86850; 86900; 86901; 93005; 94640; 96374; 96375; 99284; A9270; C9803; J1940; J2930; U0003; U0005

== ENCOUNTER 2024-11-12 16:53 | Emergency (ER) | payer OTHER, SELFPAY ==
--- NOTE | ~2024-11-12 | CT_ITS ---
EXAMINATION: CT brain wo con DATE: 11/12/2024 17:40 INDICATION: head injury on thinners; nosebleeds . TECHNIQUE: Computed tomography (CT) of the head was performed without intravenous contrast. The mA wa s adjusted according to patient size. Iterative reconstruction technique was employed. The dose-lengt h product was 605.33 mGy-cm. COMPARISON: 07/09/2022. FINDINGS: No acute intracranial hemorrhage or extra-axial fluid collection. No hydrocephalus, mass, or herniation. No acute ischemic infarct. Unremarkable dural venous sinus attenuation. No acute osseous abnormality. Left maxillary retention cyst/polyp, the remaining aerated spaces are clear. Mild chronic white matter change. IMPRESSION: No acute intracranial process. Reviewed, dictated and finalized at location K.
[2024-11-12 16:54] VITALS: BP 150/80; PULSE 76; RESP 16; TEMP 36.4; O2SAT 100
--- OUTSIDE RECORDS SUMMARY | 2024-11-12 16:56 | XMS_ITS | Continuity of Care Document ---
Author Organization [facility] Address [address] [facility] [address] [place] [address] Phone Care Team Providers Care Cath Lab Radiology Technician Name Role Phone Cecy Farmer MD Unavailable Unavailable Medications Medication Instructions Dosage Effective Dates (start - stop) Status Comments azelastine 137 mcg (0.1 %) nasal spray aerosol spray 2 spray by intranasal route 2 times every day in each nostril - Active Symbicort 160 mcg-4.5 mcg/actuation HFA aerosol inhaler inhale 2 puff by inhalation route 2 times every day in the morning and evening 2.00 puff - Active Spiriva Respimat 1.25 mcg/actuation solution for inhalation inhale 2 puff by inhalation route every day 2.5 MCG - Active albuterol sulfate HFA 90 mcg/actuation aerosol inhaler inhale 2 puff by Inhalation route every 4 - 6 hours as needed 2 puff - Active Procedures Procedure Date Perc Test New (Level 4) OFFICE/OUTPATIENT VISIT Advance Directives Directive Yes / No Effective Date File Name No Information Encounters Encounter Description Practice Location Reason(s) For Visit Diagnoses Date Provider Providers Copied on Encounter [facility], [address] [facility] [address], [place], [place], [id number], tel:[phone] [facility] No Information [address], [place], [address], [place]. tel:[phone] [facility], [address] [place] [address], [id number], tel:[phone] [facility] No Information [address] Darian Cheshil. [address], [place], [address], [place]. tel:[phone] New (Level 4) OFFICE/OUTPA TIENT VISIT [facility], [address] [place] [address], [id number], [place] tel:[phone] [facility] [place] allergies and asthma (chief complaint) Body mass index (BMI) 36.0-36.9, adultEssential (primary) hypertensionSeve re persistent asthmaChronic rhinitis 3 Darian Chesh[address]. [address], [place], [address], [place]. tel:[phone] Referring Provider: Jax Mixon, [address] [facility] [address], [place], [address]. tel:[phone] Family History Family Member Type Diagnosis Age At Onset Mother Problem Asthma Problem No family history of Allergi c rhinitis Payers Payer name Insurance type Covered green party ID Demi friedman(tone Mccracken [id number] Social History Type Description Quantity Date Captured Comments Alcohol Use Details Unknown Caffeine Use Details Unknown Tobacco Use Status Smoking Status No Information Sex Female Chief Complaint And Reason For Visit No Information Reason For Referral Reason For Referral No Information Plan Of Treatment Date Type Action Status Future Order: Lab Order CBC With Differential ([id number]), Sent on: Sent Future Order: Lab Order Immunogl obulin E, Total ([id number]), Sent on: Sent History Of Present Illness Encounter Date Complaint History Of Prese nt Illness allergies and asthma Asthma - AC T: patient has asthma on Symbicort 160/4.5 c g 2 puffs BID, Spiriva 2 puffs daily, and albuterol PRN (used twice daily). They were diagnosed with asthma in the last 3-4 years. The patient has never been hospitalized for asthma. She had a positive methacholine challenge on 08/27/22 by report.Currently, they have exertional limitations 2/2 chest tightness, even with mild exertion. They report nocturnal awakenings nightly with dyspnea and chest tightness. She did have to to the ED about 2 months ago for flared symptoms. She does not recall being treated with steroids.RhinitisThe patient has a history of perennial rhinitis with worsening during seasonal changes. The symptoms include rhinorrhea (ant) and congestion w/o ocular pruritus and tearing. She is not on any medication for her nose symptoms. She does relay some epistaxis. She is on Xarelto because of a PE in 2020.PMH: HLD, HFpEF, GERD, FibromyalgiaPSH: tubal ligation, ear surgery, wrist surgeryMedication Allergies: NKDAFHAsthma - momRhinitis - noneSHTobacco: Current Smoker (1/2 ppd x 45 years)Environmental HistoryLives in a house w/ central air/forced heat, w/ possible mold in the bathroom. Basement leaks.Pets: dog x 2DataI reviewed outside records available in the EMR01/06/21PI*MMA1AT 184TB Quant Gold: negativeIgG 1027*IgG1 514*IgG2 246*IgG3 77Abs Eos 180 on 06/06/22(unknown date)Total IgE 125 Functional Status Date Functional Assessmen t No Information Instructions Date Instruction Additional Infor theodore - start Azelastine 2 sprays each nostril twice daily- Please remember to point the nasal spray away from the nasal septum, up and outwards towards the top of the ears on both sides- if nose bleeding occurs, please hold the nasal spray for 2-3 days to allow for healing of the nasal tissue (you may use nasal saline gel or vaseline on a q-tip to help heal the tissue), then restart the nasal spray.- If nose bleeding recurs, please stop the nasal spray and contact our office to set up an appointment for further guidance Related to Chronic rhinitis Giving encouragement to exercise Related to Body mass index [BMI] 36.0-36.9, adult Giving encouragement to exercise Related to Hypertension Assessments Type Assessment Date No Information Patient Care Teams Name Effective Dates (start - stop) Status Members No Information
--- OUTSIDE RECORDS SUMMARY | 2024-11-12 16:56 | XMS_ITS | Encounter Summary ---
Author Organization [facility] Address [address] [place] [address] Phone Care Team Providers Care Olive Pitter Name Role Phone Mu Oleary Primary Care Provider [phone] Minh Bazan MD Unavailable Sandoval Lacey MD Unavailable Encounter Details Date Type Department Care Team (Late st Contact Info) Description 10/02/2021 Telephone [facility] [address] [address] Minh Bazan MD [address] [address] Social History Tobacco Use Types Packs/Day Years Used Date Smoking Tobacco: Every Day Cigarettes Smokeless Tobacco: Never Alcohol Use Standard Drinks/Week Comments Yes 0 (1 standard drink = 0.6 oz pur e alcohol) beer, socially PHQ-2 Answer Date Recorded Total Score - Questions 1-9 0 07/28 Comments Unknown Sex and Gender Information Value Date Recorded Sex Assigned at Not on file Legal Sex Female 11:27 AM CDT Gender Identity Not on file Sexual Orientation Not on file COVID-19 Exposure Response Date Recorded In the last month, have you been in contact with someone who was confirmed or suspected to have Coronavirus / COVID-19? No / Unsure 09/05/2021 12:26 PM QUARR[facility] [employer] AND FEATHER [employer]RILLER documented as of this encounter Miscellaneous Notes * Telephone Encounter - Annie Barnes - 10/02/2021 3:47 PM CST Pt tested positive for covid on 09/30/21. Rescheduled appt to 10/16/21 RY [employer]LLER documented in this encounter Plan of Treatment Upcoming Encounters Date Type Department Care Team (Late st Contact Info) Description 12/08/2024 10:30 AM CDT Office Visit [facility] [address] [address] Minh Bazan MD [address] [place] [address] [address] 12/08/2024 10:45 AM CDT Clinical Support [facility] [address] [address] Nurse, [facility] documented as of this encounter Visit Diagnoses Not on filedocumented in this encounter Additional Health Concerns Assessment Noted Time PHQ-9 Depression Total Score: 0 05/16/20 10:46 AM CDT documented as of this encounter Care Teams Olive Pitter Relationship Specialty Start Date End Date Mu Oleary PA [address] [place] [id number] PCP - General Physician Manager Care Management 03/21/21 Minh Bazan MD [address] [place] [phone] Consulting Physician Oncology 03/21/21 Sandoval Lacey MD [address] [place] [address] Wash Rack Operator Cardiovascular Disease - Cardiology 08/25/21 documented as of this encounter
--- OUTSIDE RECORDS SUMMARY | 2024-11-12 16:56 | XMS_ITS | Clinical Summary ---
Author Organization [facility] Address [address] [place] [address] Care Team Providers Care Automation Consultant Name Role Phone Unavailable Primary Care Provider Unavailabl e Source Comments [facility],non-owned Affiliates and Associated Physician Practices is amultiple site organization consisting of ambulatory clinics and hospital sitesin [place], [place], [place] and [place]. This disclosure is being madepursuant to the Care Everywhere program and may not contain all information available regarding this patient. Last updated 18.[facility] Enterra Feed Medications * Be aware that medications may not be up to date on this document. Alwaysverify current medications with the patient. norethindrone (ORTHO MICRONOR; NOR-QD; EKATERINA; ISAIAS; OLLIE-BE; FANNY; JOLIVETTE) 0.35 MG tablet Take 1 tablet by mouth DAILY. 7 Active Ibuprofen (ADVIL) 100 MG Take by mouth. 7 Active estradiol (VIVELLE-DOT) 0.05 MG/24HR patch Apply 1 patch to skin q7days. 7 Active cyclobenzaprine (FLEXERIL) 5 MG tablet Take 5 mg by mouth 3X/day PRN. 7 Active pravastatin (PRAVACHOL) 10 MG tablet Take 10 mg by mouth. 7 Active nortriptyline (PAMELOR) 10 MG capsule Take 10 mg by mouth. 7 Active HYDROcodone-mihaela taminophen (NORCO) 5-325 MG tablet Take 1 tablet by mouth q4h PRN (Pain). 7 Active losartan (COZAAR) 25 MG tablet Take 25 mg by mouth DAILY. 7 Active clonazePAM, disintegrating, (KLONOPIN WAFER) 0.25 MG tablet Take by mouth BID. 7 Active Flunisolide HFA (AEROSPAN) 80 MCG/ACT Inhale by mouth. 7 Active gabapentin (NEURONTIN) 100 MG capsule Take 300 mg by mouth TID. 7 Active TiZANidine-Lini ment (TIZANIDINE COMFORT PAC) 4 MG MISC by Combination route. 7 Active budesonide-form oterol (SYMBICORT) 160-4.5 MCG/ACT inhaler Inhale by mouth. 7 Active acyclovir (ZOVIRAX) 200 MG capsule Take 200 mg by mouth Every 4 Hours While Awake. 7 Active metoprolol succinate XL 24hr (TOPROL XL) 100 MG tablet Take 100 mg by mouth DAILY. 7 Active methIMAzole (TAPAZOLE) 5 MG tablet Take 5 mg by mouth DAILY. 7 Active FLUoxetine (PROZAC) 10 MG capsule Take 10 mg by mouth DAILY. 7 Active Social History Tobacco Use Types Packs/Day Years Used Date Smoking Tobacco: Every Day Alcohol Use Standard Drinks/Week Comments No 0 (1 standard drink = 0.6 oz pur e alcohol) Comments Unknown Sex and Gender Information Value Date Recorded Sex Assigned at Not on file Legal Sex Female 5:37 PM NURSE EXTERN Gender Identity Not on file Sexual Orientation Not on file Plan of Treatment Health Maintenance Due Date Last Done Comments COLOGUARD (AGES 45-75) - COL ON CA SCREENING 1963 COLON MONITORING 1963 COLONOSCOPY - COLON CA SCREENING 1963 CT COLONOGRAPHY - COLON CA SCREENING 1963 Colorectal Cancer Screening 1963 FIT - COLON CA SCREENING 1963 FLEX SIG - COLON CA SCREENING 1963 MAMMOGRAM 1963 HIV SCREENING 1978 HEPATITIS C SCREENING 03/29/1981 DTAP/TDAP/TD VACCINES (1 - Tdap) 1982 PNEUMOCOCCAL VACCINE 50+ (1 of 2 - PCV) 1982 ZOSTER VACCINE (1 of 2) 2013 COVID-19 VACCINE ( - 2023-2 5 season) 2024 DEPRESSION SCREENING 07/26/2024 INFLUENZA VACCINE (Season Ended) 2025 Respiratory Syncytial Virus (RSV) Vaccine Pt: or over 60 yrs (1 - 1-dose 75+ series) 2038 HEPATITIS B VACCINE Aged Out No longe r eligible based on patient's age to complete this topic HIB VACCINE Aged Out No longer eligi ble based on patient's age to complete this topic HPV VACCINE Aged Out No longer eligi ble based on patient's age to complete this topic MENINGOCOCCAL (Group B) VACC INE SHARED DECISION-MAKING Aged Out No longer eligibl e based on patient's age to complete this topic MENINGOCOCCAL GROUPS A/C/Y/W VACCINE Aged Out No longer eligible b ased on patient's age to complete this topic
--- OUTSIDE RECORDS SUMMARY | 2024-11-12 16:56 | XMS_ITS | Clinical Summary ---
Author Organization [facility] Address [address] [place] [address] Care Team Providers Care Habilitative Interventionist Name Role Phone None, Provider MD Primary Care Provider Unavaila ble Allergies No known active allergies Medications acyclovir (ZOVIRAX) 400 MG tablet Take 400 mg by mouth daily. Active albuterol (PROVENTIL) (2.5 MG/3ML) 0.083% nebulizer solution Take 2.5 mg by nebulization every 6 (six) hours as needed for Wheezing. 2 Active albuterol sulfate HFA 108 (90 Base) MCG/ACT inhaler Inhale 2 puffs into the lungs every 6 (six) hours as needed for Wheezing. Active SYMBICORT 160-4.5 MCG/ACT inhaler Inhale 2 puffs into the lungs 2 (two) times daily. 2 Active DODEX 1000 MCG/ML injection Inject 1,000 mcg into the skin monthly. 2 Active traZODone (DESYREL) 50 MG tablet Take 50 mg by mouth nightly at bedtime. 2 Active tiZANidine (ZANAFLEX) 4 MG tablet Take 1 tablet by mouth 3 (three) times daily as needed (muscle spasms). Active rOPINIRole (REQUIP) 1 MG tablet Take 3 mg by mouth nightly. 2 Active hydrOXYzine (ATARAX) 10 MG tablet Take 2 tablets by mouth 3 (three) times daily as needed for Anxiety. 2 Active clonazePAM (KLONOPIN) 1 MG tablet Take 1 mg by mouth 2 (two) times daily. 2 Active SPIRIVA HANDIHALER 18 MCG inhalation capsule INHALE CONTENTS OF 1 CAPSULE THROUGH HANDIHALER ONCE DAILY DIRECTED 2 Active OZEMPIC 0.25/0.5 MG/DOSE 2 MG/1.5ML injection (PEN) Inject 0.25 mg into the skin every 7 days. Saturdays 2 Active SUMAtriptan (IMITREX) 100 MG tablet sumatriptan 100 mg tablet TAKE 1 TABLET AT ONSET OF HEADACHE MAY REPEAT IN 2 HOURS. NO MORE THAN 2 TABLETS IN 24 HOURS 2 Active donepezil (ARICEPT) 10 MG Tab Take 10 mg by mouth nightly. 2 Active ezetimibe (ZETIA) 10 MG tablet Take 10 mg by mouth daily. 2 Active FLUoxetine (PROZAC) 40 MG capsule Take 40 mg by mouth daily. Take in addition to 20 mg capsule for a total dose of 60 mg 2 Active FLUoxetine (PROZAC) 20 MG capsule Take 20 mg by mouth daily. Take in addition to 40 mg capsule for a total dose of 60 mg Active furosemide (LASIX) 20 MG tablet Take 40 mg by mouth daily. Active HYDROcodone-mihaela taminophen (NORCO) 10-325 MG tablet Take 1 tablet by mouth 3 (three) times daily as needed. Active losartan (COZAAR) 100 MG tablet Take 100 mg by mouth daily. Active methocarbamol (ROBAXIN) 750 MG Tab Take 750 mg by mouth 3 (three) times daily as needed (Muscle spasms). 2 Active omeprazole (PRILOSEC) 20 MG capsule Take 20 mg by mouth 2 (two) times a day. 2 Active guaiFENesin ER (MUCINEX) 600 MG 12 hr tablet Take 1 tablet (600 mg total) by mouth 2 (two) times daily. 60 tablet 2 Active pantoprazole EC (PROTONIX) 40 MG tablet Take 1 tablet (40 mg total) by mouth daily. 30 tablet 2 Active potassium chloride CR (KLOR-CON M) 20 MEQ tablet Take 1 tablet (20 mEq total) by mouth daily. 30 tablet 2 Active Active Problems Problem Noted Date Diagnosed Date GIB (gastrointestinal bleeding) 06/03/2022 Supratherapeutic INR 06/03/2022 Overview (06/04/2022): Added automatically from request for surgery [id number] Melena 06/03/2022 Overview (06/04/2022): Added automatically from request for surgery [id number] Acute blood loss anemia 06/03/2022 Overview (06/04/2022): Added automatically from request for surgery [id number] Epigastric pain 06/03/2022 Overview (06/04/2022): Added automatically from request for surgery [id number] Pyrosis 06/03/2022 Overview (06/04/2022): Added automatically from request for surgery [id number] Immunizations Immunization Administration Dates Next Due Fluzone 6 Months+ Quad (0.5 mL Prefilled Syringe) 06/06/2022(Deferred: Patient/family declined) Social History Tobacco Use Types Packs/Day Years Used Date Smoking Tobacco: Every Day Cigarettes Smokeless Tobacco: Never Alcohol Use Standard Drinks/Week Comments Not Currently 0 (1 standard drink = 0.6 oz pur e alcohol) Comments No Sex and Gender Information Value Date Recorded Sex Assigned at Not on file Legal Sex Female 12:39 PM WARP KNITTER HELPER Gender Identity Not on file Sexual Orientation Not on file Last Filed Vital Signs Vital Sign Reading Time Taken Comments Blood Pressure 151/82 06/06/2022 12:00 PM WARP KNITTER HELPER Pulse 82 06/06/2022 12:00 PM WARP KNITTER HELPER Temperature 36.7 C (98 F) 06/06/2022 12:00 PM WARP KNITTER HELPER Respiratory Rate 19 06/06/2022 12:00 PM WARP KNITTER HELPER Oxygen Saturation 97% 06/06/2022 12:00 PM WARP KNITTER HELPER Inhaled Oxygen Concentration - - Weight 99 kg (218 lb 4.1 oz) 06/03/2022 1:08 PM WARP KNITTER HELPER Height 157.5 cm (5' 2 ) 06/03/2022 1:08 PM WARP KNITTER HELPER Body Mass Index 39.92 06/03/2022 1:08 PM WARP KNITTER HELPER Plan of Treatment Health Maintenance Due Date Last Done Comments Cervical Cancer Screening Pa p Smear (Age 30 to 64) Every 3 Years 1963 Annual Physical 1966 Hepatitis C 1981 Pneumococcal Vaccine: 50+ Ye ars (1 of 2 - PCV) 1982 Cervical Cancer Screening Pa p with HPV Testing (Age 30 to 64) Every 5 Years 1993 Cervical Cancer Screening with HPV 1993 Mammogram Screening 2003 Zoster Vaccines (1 of 2) 2013 Colorectal Cancer Screening FIT/FOBT (1 Year) 06/03/2023 06/03/2022 COVID-19 Vaccine (1 - 2023-2 5 season) 2024 DTaP, Tdap and Td Vaccines ( 2 - Td or Tdap) 06/27/2024 06/27/2014 RSV Immunization or 60+ Years (1 - 1-dose 75+ series) 2038 Meningococcal B Vaccine Aged Out No l onger eligible based on patient's age to complete this topic Meningococcal Vaccine Aged Out No monica agustín eligible based on patient's age to complete this topic RSV Immunizations Under 20 Months Aged Out No longer eligible based on patient's age to complete this topic Procedures Procedure Name Priority Date/Time Associated Diagnosis Comments OCCULT BLOOD, FECES STAT 06/03/2022 4 :02 PM WARP KNITTER HELPER from Last 3 Months or Most Recently Relevant to Health Maintenance Results * OCCULT BLOOD, FECES (06/03/2022 4:02 PM WARP KNITTER HELPER) OCCULT BLOOD FECAL POSITIVE 06/03/2022 4:22 PM WARP KNITTER HELPER [facility] STOOL SPECIMEN / Unknown 06/03/2022 4:02 PM WARP KNITTER HELPER us Carly Hester MD BODY FLUIDS AND STOOLS ORDERA BLES Final Result [facility] [address] [place] [address], [place] [phone] from Last 3 Months or Most Recently Relevant to Health Maintenance Insurance [employer] Advance Directives * Full Code (Latest Code Status on File) Date Activated Date Inactivated Comments 06/03/2022 5:49 PM 06/06/2022 3:58 PM Care Teams Habilitative Interventionist Relationship Specialty Start Date End Date None, Provider, MD PCP - General UNKNOWN PHYSICIAN SPECIALTY 06/03/22
--- OUTSIDE RECORDS SUMMARY | 2024-11-12 16:56 | XMS_ITS | Encounter Summary ---
Author Organization [facility] Address [address] [place] [address] Phone Care Team Providers Care Gravel Screener Name Role Phone Mu Oleary Primary Care Provider Minh Bazan MD Unavailable [phone] Sandoval Lacey MD Unavailable Reason for Visit * Reason Comments Medication Refill Encounter Details Date Type Department Care Team (Late st Contact Info) Description 01/04/2022 Refill [facility] [address] [address] Minh Bazan MD [address] [address] Medication Refill Social History Tobacco Use Types Packs/Day Years Used Date Smoking Tobacco: Every Day Cigarettes Smokeless Tobacco: Never Alcohol Use Standard Drinks/Week Comments Yes 0 (1 standard drink = 0.6 oz pur e alcohol) beer, socially PHQ-2 Answer Date Recorded Total Score - Questions 1-9 0 10/25 Comments Unknown Sex and Gender Information Value Date Recorded Sex Assigned at Not on file Legal Sex Female 11:27 AM CDT Gender Identity Not on file Sexual Orientation Not on file documented as of this encounter Miscellaneous Notes * Telephone Encounter - Meche Vázquez LPN - 01/05/2022 8:28 AM CDT Please refill if appropriate documented in this encounter Plan of Treatment Upcoming Encounters Date Type Department Care Team (Late st Contact Info) Description 12/08/2024 10:30 AM CDT Office Visit [facility] [address] [address] Minh Bazan MD [address] [id number] 12/08/2024 10:45 AM CDT Clinical Support [facility] [address] [address] Nurse, [facility] documented as of this encounter Visit Diagnoses Not on filedocumented in this encounter Additional Health Concerns Assessment Noted Time PHQ-9 Depression Total Score: 0 05/16/20 10:46 AM CDT documented as of this encounter Care Teams Gravel Screener Relationship Specialty Start Date End Date Mu Oleary PA [address] [place] [id number] PCP - General Physician Seating Captain 03/21/21 Minh Bazan MD [address] [place] [phone] Consulting Physician Oncology 03/21/21 Sandoval Lacey MD [address] [place] [address] Weather Analyst Cardiovascular Disease - Cardiology 08/25/21 documented as of this encounter
--- OUTSIDE RECORDS SUMMARY | 2024-11-12 16:57 | XMS_ITS | CONTINUITY OF CARE DOCUMENT ---
Author Name jessica lopez Address Unknown Organization [facility] Address [address] [address] [place] [address] Phone [phone] Care Team Providers Care Region Manager Name Role Phone Danelle Prieto MD Unavailable [phone] UMAIR AMAYA MD Unavailable UMAIR AMAYA MD Unavailable PROBLEMS Condition Status Date Provider Notes HTN active Danelle Prieto MD Family History of CVA or Stroke: active ? Rowan Prieto MD Family History of Sudden Car diac : completed - Chai Mcpherson Family History of Sudden Car diac : active ? Danelle Prieto MD Chest pain active Danelle Prieto MD Back pain active Danelle Prieto MD Wheezing active Danelle Prieto MD Tobacco abuse active Evita Carranza CAD DETAILER Lower extremity edema active Danelle jenkins MD Hypercholesterolemia active Danelle potter MD CHF - diastolic active Esperanza Sumner MD COPD active Esperanza Sumner MD Pulmonary embolism active Sandoval Lacey MD Leg pain active Sandoval Lacey MD Palpitations active Sandoval Lacey MD Venous insufficiency active Nina reddy CAD DETAILER Abnormal cardiovascular stress test active Nina Brown NP Anemia active Sandoval Lacey MD PUMA- ? active Sandoval Lacey MD Weight gain active Sandoval Lacey MD Numbness in feet active Sandoval Lacey MD ENCOUNTERS Date Type Provider Location Encounter Diag nosis - In-person encounter Office Visit Sandoval Lacey MD [facility] Numbness in feet - In-person encounter Office Visit Sandoval Lacey MD [facility] - In-person encounter Office Visit Sandoval Lacey MD [facility] Weight gain - In-person encounter Office Visit Sandoval Lacey MD [facility] - In-person encounter Office Visit Sandoval Lacey MD [facility] - In-person encounter Office Visit Judie Haq MD [facility] Tobacco abuse - In-person encounter Office Visit Sandoval Lacey MD [facility] PUMA- ? - In-person encounter Office Visit Sandoval Lacey MD [facility] - In-person encounter Office Visit Sandoval Lacey MD [facility] Anemia - In-person encounter Office Visit Sandoval Lacey MD [facility] - In-person encounter Office Visit Elise Arenas MD [facility] Venous insufficiencyAbnormal cardiovascular stress test - In-person encounter Office Visit [facility] Tobacco abusePulmonary embolismLeg painPalpitations - In-person encounter Office Visit Esperanza Sumner MD [facility] CHF - diastolicCOPD - In-person encounter Office Visit Danelle Prieto MD [facility] Family History of Sudden Cardiac : - In-person encounter Office Visit Danelle Prieto MD [facility] - In-person encounter Office Visit Danelle Prieto MD [facility] - In-person encounter Office Visit Danelle Prieto MD [facility] CHF - diastolic - In-person encounter Office Visit Danelle Prieto MD [facility] - In-person encounter Office Visit Danelle Prieto MD [facility] Tobacco abuseLower extremity edemaHypercholesterolemia - In-person encounter Office Visit Danelle Prieto MD [facility] HTNFamily History of CVA or Stroke:Family History of Sudden Cardiac :Chest painBack painWheezing VITAL SIGNS Date Observation Value Provider Body Mass Index (Ratio) 41.02 kg/m2 Nikita Lacey MD blood pressure, diastolic -1 mm[Hg] Laura nkLog blood pressure, systolic 162 mm[Hg] Ligia og blood pressure, diastolic 85 mm[Hg] Tr[facility] blood pressure, systolic 162 mm[Hg] [facility] pulse rate 74 /min [facility] blood pressure, cuff size regular [facility] oxygen saturation, oximetry 96 % [facility] respiratory rate E&M 18 /min [facility] weight E&M 239 [lb_av] [facility] height E&M 64 [in_i] [facility] Body Mass Index (Ratio) 37.59 kg/m2 Nikita Lacey MD blood pressure, cuff size regular [facility] blood pressure, diastolic 86 mm[Hg] [facility] blood pressure, systolic 156 mm[Hg] Mallory [facility] pulse rate 77 /min Yuri oxygen saturation, oximetry 97 % [facility] respiratory rate E&M 16 /min [facility] weight E&M 219 [lb_av] Yuri height E&M 64 [in_i] Yuri Body Mass Index (Ratio) 37.07 kg/m2 Nikita Lacey MD blood pressure, cuff size regular [facility] blood pressure, diastolic 74 mm[Hg] [facility] blood pressure, systolic 123 mm[Hg] [facility] pulse rate 63 /min [facility] respiratory rate E&M 12 /min [facility] oxygen saturation, oximetry 96 % [facility] weight E&M 216 [lb_av] [facility] height E&M 64 [in_i] [facility] Body Mass Index (Ratio) 33.98 kg/m2 Nikita Lacey MD blood pressure, diastolic 81 mm[Hg] St briseida Reid blood pressure, systolic 135 mm[Hg] Moraima Reid oxygen saturation, oximetry 94 % Nazia Reid pulse rate 65 /min Nazia Reid weight E&M 198 [lb_av] Nazia Reid respiratory rate E&M 18 /min Nazia howe height E&M 64 [in_i] Nazia Reid Body Mass Index (Ratio) 38.96 kg/m2 Nikita Lacey MD blood pressure, diastolic 74 mm[Hg] Nickie hayden Scheller blood pressure, systolic 118 mm[Hg] Lupillo portillo Scheller oxygen saturation, oximetry 95 % Annie Scheller pulse rate 86 /min Annie christianson weight E&M 227 [lb_av] Annie Hannah ramonita respiratory rate E&M 16 /min Lucy jansen Scheller blood pressure, cuff size large Nickie hayden Scheller height E&M 64 [in_i] Annie Hannah ramonita Body Mass Index (Ratio) 39.30 kg/m2 Ren Mcneal respiratory rate E&M 16 /min Dalila Jax blood pressure, cuff size regular Deb montoya Jax blood pressure, diastolic 72 mm[Hg] Deb hammondsag Camara blood pressure, systolic 118 mm[Hg] Paolo johanne Camara oxygen saturation, oximetry 98 % Dalilaag Camara pulse rate 76 /min Dalilaag Camara weight E&M 229 [lb_av] Dalilaag Camara height E&M 64 [in_i] Dalila Camara Body Mass Index (Ratio) 42.05 kg/m2 Nikita Lacey MD blood pressure, cuff size large Hans Gaytan blood pressure, diastolic 78 mm[Hg] Hans mehtaa Lukas blood pressure, systolic 147 mm[Hg] Sandeep Gaytan oxygen saturation, oximetry 96 % Taylor Gaytan respiratory rate E&M 18 /min Taylor Gaytan pulse rate 93 /min Taylor Gaytan weight E&M 245.0 [lb_av] Taylor Gaytan height E&M 64 [in_i] Taylor Gaytan Body Mass Index (Ratio) 41.88 kg/m2 Nikita Lacey MD blood pressure, diastolic 90 mm[Hg] Laura nkLogic blood pressure, systolic 180 mm[Hg] Ligia kLogic blood pressure, cuff size large Tr wili Elaine blood pressure, diastolic 90 mm[Hg] Tr wili Elaine blood pressure, systolic 180 mm[Hg] Ricky Elaine oxygen saturation, oximetry 97 % Tad Elaine respiratory rate E&M 20 /min Trymaria c Elaine pulse rate 87 /min Tad Elaine weight E&M 244 [lb_av] Tad Elaine height E&M 64 [in_i] Tad Elaine Body Mass Index (Ratio) 40.16 kg/m2 Nikita Lacey MD blood pressure, cuff size regular Gustabo Blackmanby blood pressure, diastolic 70 mm[Hg] Kr isty Javier blood pressure, systolic 140 mm[Hg] Kri brock Javier oxygen saturation, oximetry 95 % Jadyn Herrera pulse rate 80 /min Jadyn Javier respiratory rate E&M 19 /min Jadyn [place] weight E&M 234 [lb_av] Jadyn [place] blood pressure, resting No Angusabbey duran Javier height E&M 64 [in_i] Jadyn [place] Body Mass Index (Ratio) 41.71 kg/m2 Nikita Lacey MD blood pressure, resting Yes Luis Felipe Funk blood pressure, diastolic 80 mm[Hg] Asha Funk blood pressure, systolic 160 mm[Hg] Victoria Funk pulse rate 87 /min Aysha roy oxygen saturation, oximetry 98 % Aysha Funk respiratory rate E&M 20 /min Bill Gallagherford weight E&M 243 [lb_av] Shershireen Gallagher roy height E&M 64 [in_i] Sherrasheeditha Aileen roy Body Mass Index (Ratio) 42.22 kg/m2 Lizzy Arenas MD blood pressure, cuff size regular Cy ntflacaa Torres blood pressure, diastolic 70 mm[Hg] Cy nthia Torres blood pressure, systolic 130 mm[Hg] Ginette elvina Brian oxygen saturation, oximetry 98 % Ilda Torres respiratory rate E&M 16 /min Ilda Torres pulse rate 77 /min Ilda Campbel l weight E&M 246 [lb_av] Ilda Campbel l height E&M 64 [in_i] Ilda Campbel l Body Mass Index (Ratio) 41.19 kg/m2 Nikita Lacey MD blood pressure, resting Yes [facility] shireen Gallagherford blood pressure, diastolic 64 mm[Hg] kana Gallagherford blood pressure, systolic 136 mm[Hg] [facility] pulse rate 90 /min Aysha Gallagher roy oxygen saturation, oximetry 96 % Aysha Gallagherford respiratory rate E&M 22 /min Bill Gallagherford weight E&M 240 [lb_av] Aysha Gallagher roy height E&M 64 [in_i] Nimishaa Aileen roy Body Mass Index (Ratio) 46.68 kg/m2 Josemanuel Sumner MD blood pressure, diastolic 73 mm[Hg] Cy nthia Brian blood pressure, systolic 169 mm[Hg] Ginette thia Brian blood pressure, cuff size regular Cy ntflacahanna Torres pulse rate 60 /min Ilda Yepezbel l oxygen saturation, oximetry 96 % Ilda Torres respiratory rate E&M 16 /min Ildajayson Torres weight E&M 272 [lb_av] Ilda Yepezbel l height E&M 64 [in_i] Ilda Yepezbel l Body Mass Index (Ratio) 38.27 kg/m2 [place] blood pressure, diastolic 78 mm[Hg] Cy rosa Torres blood pressure, systolic 130 mm[Hg] Ginette jayson Torres respiratory rate E&M 16 /min Ildajayson Torres blood pressure, cuff size regular Cy rosa Torres oxygen saturation, oximetry 96 % Ilda Torres pulse rate 68 /min Ilda Yepezbel maureen weight E&M 223 [lb_av] Ilda reddy height E&M 64 [in_i] Ilda reddy Body Mass Index (Ratio) 38.10 kg/m2 Jord en Jeffery blood pressure, cuff size regular Cy rosa Torres blood pressure, diastolic 80 mm[Hg] Cy dwighta Torres blood pressure, systolic 124 mm[Hg] Ginette jayson Torres oxygen saturation, oximetry 93 % Ilda Torres respiratory rate E&M 16 /min Ildajayson Torres pulse rate 54 /min Ilda reddy weight E&M 222 [lb_av] Ilda Yepezbel maureen height E&M 64 [in_i] Ilda Yepezbel l Body Mass Index (Ratio) 37.93 kg/m2 Sammy pena Cherri blood pressure, diastolic 82 mm[Hg] Ki lleen Szymanski blood pressure, systolic 130 mm[Hg] Kil yissel Szymanski oxygen saturation, oximetry 97 % Tru Szymanski respiratory rate E&M 16 /min Tru Szymanski pulse rate 65 /min Florence Szymanski weight E&M 221 [lb_av] Florence Szymanski height E&M 64 [in_i] Ilda Mejia l Body Mass Index (Ratio) 38.62 kg/m2 Sammy Harley blood pressure, cuff size large Rasheed rri Gruenenfelder blood pressure, diastolic 80 mm[Hg] Rasheed rri Gruenenfelder blood pressure, systolic 120 mm[Hg] Mat ri Kennedyfaustinonfelder oxygen saturation, oximetry 97 % Rosi Anju respiratory rate E&M 20 /min Rosi Hernandes ezranfelder pulse rate 67 /min Rosi Kennedybryisamar lder weight E&M 225 [lb_av] Rosi Mice lder height E&M 64 [in_i] Rois Mice lder Body Mass Index (Ratio) 39.82 kg/m2 Jordy Prieto MD blood pressure, diastolic 80 mm[Hg] Ki lleen Szymanski blood pressure, systolic 122 mm[Hg] Malik dey Szymanski oxygen saturation, oximetry 97 % Florence Szymanski respiratory rate E&M 16 /min Tru Szymanski pulse rate 56 /min Florence Szymanski weight E&M 232 [lb_av] Tru Szymanski height E&M 64 [in_i] Florence Szymanski Body Mass Index (Ratio) 41.02 kg/m2 Jordy Prieto MD blood pressure, cuff size regular Deb Negro blood pressure, diastolic 90 mm[Hg] Deb Negro blood pressure, systolic 140 mm[Hg] Tino Negro oxygen saturation, oximetry 98 % Shauna Negro respiratory rate E&M 16 /min Shauna Negro pulse rate 74 /min Shauna Negro blood pressure, resting Yes Julio César Negro weight E&M 239 [lb_av] Shauna Negro height E&M 64 [in_i] Shauna Negro Body Mass Index (Ratio) 41.02 kg/m2 Jordy Prieto MD blood pressure, cuff size large Rasheed ruiz Anju blood pressure, diastolic 80 mm[Hg] Rasheed ruiz Anju blood pressure, systolic 118 mm[Hg] Mat deepti Rene oxygen saturation, oximetry 96 % Rosi Anju respiratory rate E&M 16 /min Rosi nieto pulse rate 63 /min Rosi santanaer weight E&M 239 [lb_av] Orsi Hank santanaer height E&M 64 [in_i] Rosi Mice perry ALLERGIES No Known Drug Allergies RESULTS Date Observation Value Provider Reference Range Interpretation Location 3 prothrombin time (patient) 11.8 s LinkLogic 9.1-12.0 3 international normalized ratio (INR) 1.1 [facility] 0.9-1.2 3 lipoprotein, beta, serum, point, quantitative, calculated 56 mg/dL [facility] 0-99 3 HDL cholesterol, serum 22 mg/dL [facility] >39 Low 3 triglyceride, serum, random 131 mg/dL [facility] 0-149 3 cholesterol, serum 102 mg/dL [facility] 075-031 5267/07/0 3 calcium, serum 8.7 mg/dL [facility] 8.7-10.2 3 carbon dioxide, venous blood 21 mmol/L [facility] 20-29 3 chloride, serum 106 mmol/L [facility] 96-106 3 potassium, serum 4.3 mmol/L [facility] 3.5-5.2 3 sodium, serum 140 mmol/L [facility] 115-823 8033/07/0 3 urea nitrogen/creatinine ratio, serum 22 [facility] 9-23 3 eGFR if 91 mL/min/{1 .73_m2} [facility] >59 3 eGFR if not 79 mL/min/{1 .73_m2} [facility] >59 3 creatinine, serum 0.83 mg/dL [facility] 0.57-1.00 3 urea nitrogen, blood 18 mg/dL [facility] 6-24 3 blood glucose, random 148 mg/dL [facility] 65-99 High 3 basophil count, absolute 0.1 x10E3/uL [facility] 0.0-0.2 3 Eosinophil Absolute Count 0.2 X10E3/UL [facility] 0.0-0.4 3 monocyte count, blood, automated 1.0 X10E3/UL [facility] 0.1-0.9 High 3 lymphocyte count, blood, automated 3.4 X10E3/UL [facility] 0.7-3.1 High 3 Absolute Neutrophils 5.0 X10E3/UL [facility] 1.4-7.0 3 basophils as percent of blood leukocytes 1 % [facility] Not Estab. 3 eosinophils as percent of blood leukocytes 2 % [facility] Not Estab. 3 monocytes as percent of blood leukocytes 11 % [facility] Not Estab. 3 lymphocytes as percent of blood leukocytes 35 % [facility] Not Estab. 3 neutrophils as percent of blood leukocytes 51 % [facility] Not Estab. 3 platelet count 304 X10E3/UL [facility] 588-565 3774/07/0 3 red blood cell distribution width 18.1 % [facility] 11.7-15.4 High 3 mean corpuscular hemoglobin concentration, RBC 28.0 G/DL [facility] 31.5-35.7 Low 3 mean corpuscular hemoglobin, RBC 19.1 pg [facility] 26.6-33.0 Low 3 mean corpuscular volume, RBC 68 fL [facility] 79-97 Low 3 hematocrit, blood 23.2 % [facility] 34.0-46.6 Low 3 hemoglobin, blood 6.5 g/dL [facility] 11.1-15.9 Critical low 3 erythrocyte (RBC) count 3.40 X10E6/UL [facility] 3.77-5.28 Low 3 leukocyte count, blood 9.6 X10E3/UL [facility] 3.4-10.8 2 free thyroxine index 2.3 [facility] 1.2-4.9 2 triiodothyronine resin uptake 27 % [facility] 24-39 2 thyroxine, serum, total 8.4 ug/dL [facility] 4.5-12.0 2 thyroid stimulating hormone, serum <0.005 uIU/mL [facility] 0.450-4.500 Low 2 alanine aminotransferase (SGPT), serum 18 1/L [facility] 0-32 2 aspartate aminotransferase (SGOT), serum 19 1/L [facility] 0-40 2 alkaline phosphatase, serum 153 1/L [facility] 39-117 High 2 bilirubin, serum, total 0.3 mg/dL [facility] 0.0-1.2 2 albumin/globulin ratio, serum 1.2 [facility] 1.2-2.2 2 globulin, serum 3.0 [facility] 1.5-4.5 2 albumin, serum 3.7 g/dL [facility] 3.8-4.9 Low 2 protein, total, serum 6.7 g/dL [facility] 6.0-8.5 2 calcium, serum 9.0 mg/dL [facility] 8.7-10.2 2 carbon dioxide, venous blood 25 mmol/L [facility] 20-29 2 chloride, serum 103 mmol/L [facility] 96-106 2 potassium, serum 4.7 mmol/L [facility] 3.5-5.2 2 sodium, serum 141 mmol/L [facility] 398-455 9337/08/2 2 urea nitrogen/creatinine ratio, serum 16 [facility] 9-23 2 eGFR if 82 mL/min/{1 .73_m2} [facility] >59 2 eGFR if not 71 mL/min/{1 .73_m2} [facility] >59 2 creatinine, serum 0.91 mg/dL LinkLog 0.57-1.00 2 urea nitrogen, blood 15 mg/dL LinkLog 6-24 2 blood glucose, random 80 mg/dL [facility] 65-99 2 pro brain natriuretic peptide 557 pg/mL [facility] 0-287 High 2 platelet count 207 X10E3/UL [facility] 481-976 5904/08/2 2 red blood cell distribution width 14.2 % [facility] 2 mean corpuscular hemoglobin concentration, RBC 31.9 G/DL LinkLog 31.5-35.7 2 mean corpuscular hemoglobin, [facility] 26.6-33.0 2 mean corpuscular volume, RBC 84 fL [facility] 79-97 2 hematocrit, blood 42.6 % LinkLog 34.0-46.6 2 hemoglobin, blood 13.6 g/dL [facility] 11[facility]15.9 2 erythrocyte (RBC) count 5.10 X10E6/UL LinkLog 3.77-5.28 2 leukocyte count, blood 9.8 X10E3/UL LinkLog 3.4-10.8 8 pro brain natriuretic peptide 150 pg/mL [facility] 0-249 8 alanine aminotransferase (SGPT), serum 15 1/L [facility] 0-32 8 aspartate aminotransferase (SGOT), serum 17 1/L [facility] 0-40 8 alkaline phosphatase, serum 126 1/L [facility] 39-117 High 8 bilirubin, serum, total 0.5 mg/dL [facility] 0.0-1.2 8 albumin/globulin ratio, serum 1.2 [facility] 1.2-2.2 8 globulin, serum 3.2 [facility] 1.5-4.5 8 albumin, serum 3.9 g/dL [facility] 3.5-5.5 8 protein, total, serum 7.1 g/dL [facility] 6.0-8.5 8 calcium, serum 9.3 mg/dL [facility] 8.7-10.2 8 carbon dioxide, venous blood 26 mmol/L [facility] 20-29 8 chloride, serum 98 mmol/L [facility] 96-106 8 potassium, serum 4.6 mmol/L [facility] 3.5-5.2 8 sodium, serum 138 mmol/L [facility] 152-049 1889/08/1 8 urea nitrogen/creatinine ratio, serum 15 [facility] 9-23 8 eGFR if 82 mL/min/{1 .73_m2} [facility] >59 8 eGFR if not 71 mL/min/{1 .73_m2} [facility] >59 8 creatinine, serum 0.92 mg/dL [facility] 0.57-1.00 8 urea nitrogen, blood 14 mg/dL [facility] 6-24 8 blood glucose, random 113 mg/dL [facility] 65-99 High 9 lipoprotein, beta, serum, point, quantitative, calculated 72 mg/dL [facility] 0-99 9 very low density lipoproteins 13 mg/dL [facility] 5-40 9 HDL cholesterol, serum 27 mg/dL [facility] >39 Low triglyceride, serum, random 63 mg/dL [facility] 0-149 cholesterol, serum 112 mg/dL [facility] 655-595 4130/12/0 9 alanine aminotransferase (SGPT), serum 15 1/L [facility] 0-32 aspartate aminotransferase (SGOT), serum 16 1/L [facility] 0-40 alkaline phosphatase, serum 111 1/L [facility] 39-117 bilirubin, serum, total 0.4 mg/dL [facility] 0.0-1.2 albumin/globulin ratio, serum 1.2 [facility] 1.2-2.2 globulin, serum 3.1 [facility] 1.5-4.5 albumin, serum 3.7 g/dL [facility] 3.5-5.5 protein, total, serum 6.8 g/dL [facility] 6.0-8.5 calcium, serum 9.4 mg/dL [facility] 8.7-10.2 carbon dioxide, venous blood 24 mmol/L [facility] 18-29 9 chloride, serum 103 mmol/L [facility] 96-106 9 potassium, serum 5.3 mmol/L [facility] 3.5-5.2 High sodium, serum 141 mmol/L [facility] 257-442 4572/12/0 9 urea nitrogen/creatinine ratio, serum 12 [facility] 9-23 9 eGFR if not 89 mL/min/{1 .73_m2} [facility] >59 9 creatinine, serum 0.76 mg/dL [facility] 0.57-1.00 9 urea nitrogen, blood 9 mg/dL [facility] 6-24 9 blood glucose, random 98 mg/dL [facility] 65-99 5 very low density lipoproteins 24.0 mg/dL [facility] 5.0-40.0 LDL/HDL (low-density lipoprotein/high-den sity lipoprotein) ratio 6 mg/dL [facility] 0-5 High lipoprotein, beta, serum, point, quantitative, calculated 157 mg/dL [facility] 0-100 High HDL cholesterol, serum 28 mg/dL [facility] 45-65 Low cholesterol, serum 209 mg/dL [facility] 0-200 High triglyceride, serum, fasting 120 mg/dL [facility] 0-150 Estimated Glomerular Filtration Rate (calc) 81 (?) [facility] >59 chloride, serum 104 mmol/L [facility] 98-107 5 potassium, serum 4.8 mmol/L [facility] 3.5-5.1 sodium, serum 141 mmol/L [facility] 989-219 7360/09/1 creatinine, serum 0.8 mg/dL [facility] 0.5-0.9 carbon dioxide, venous blood 24 mmol/L [facility] 22-29 albumin, serum 4.0 g/dL [facility] 3.5-5.2 calcium, serum 9.4 mg/dL [facility] 8.6-10.2 aspartate aminotransferase (SGOT), serum 14 1/L [facility] 0-32 alkaline phosphatase, serum 92 1/L [facility] 40-130 alanine aminotransferase (SGPT), serum 17 1/L [facility] 0-33 protein, total, serum 7.2 g/dL [facility] 6.6-8.7 bilirubin, serum, total 0.3 mg/dL [facility] 0.0-1.2 urea nitrogen, blood 12 mg/dL [facility] 6-20 blood glucose, random 112 mg/dL [facility] 74-99 High platelet count 274 THOUSAND/ UL [facility] 814-553 6475/09/1 mean corpuscular volume, RBC 92 fL [facility] mean corpuscular hemoglobin concentration, RBC 31 G/DL [facility] 31-38 5 mean corpuscular hemoglobin, RBC 28 pg [facility] 25-35 5 hematocrit, blood 44 % [facility] 35-55 hemoglobin, blood 13.5 g/dL [facility] 11.5-16.5 erythrocyte count, whole blood 4.8 MILLION/U L [facility] 3.5-5.5 HISTORY OF MEDICATION USE Medication Status Instructions Dates Provider Indications Com ments Ozempic 0.25 mg or 0.5 mg (2 mg/3 mL) pen injector completed Inject 1/4 mg subcutaneously once a week 0.5 mg after 4 weeks - Sandoval Lacey MD Ozempic 0.25 mg or 0.5 mg(2 mg/1.5 mL) pen injector completed INJECT 0.25 MG under the skin every week - Sandoval Lacey MD mirtazapine 15 mg tablet completed - Sandoval Lacey MD methocarbamol 750 mg tablet completed - Sandoval Lacey MD Ventolin HFA 90 mcg/actuation HFA aerosol inhaler active Aysha Funk Xarelto 20 mg tablet completed 1 tablet every night - Blake Gaines RN PE Medrol (Damien) 4 mg tablets,dose pack completed Take as directed - Sandoval Lacey MD bupropion HCl 150 mg tablet sustained-relea se 12 hr active 1 tablet twice a day Rick Mcneal bupropion HCl 150 mg tablet extended release 24 hr active 1 tablet once a day Rick Mcneal donepezil 5 mg tablet completed Take 1 tablet once a day - Sandoval Lacey MD #30, 30 days supply, Prescribed by PARRISH THOMPSON, Filled 02/09/2020 magnesium oxide 400 mg (241.3 mg magnesium) tablet active 1 tablet twice a day Jadyningrid Herrera Imitrex 100 mg tablet active as needed Rosi Rene potassium chloride 20 mEq tablet,ER particles/cryst als active 1 tablet once a day Rosi Rene Lasix 40 mg tablet active take one tab (40mg) MWFSun, 1.5 tablet (=60mg) on TThSat. Chai Mcpherson LIPITOR 20 MG ORAL TABLET completed one tablet daily - Sandoval Lacey MD ACID CONTROL 150 MG ORAL TABLET completed one pill twice a day - Rosi Rene TRAMADOL HCL 50 MG ORAL TABLET completed one pill twice a day - Shauna Negro Symbicort 160-4.5 mcg/actuation HFA aerosol inhaler active 2 puff twice a day Rosi Rene AEROSPAN 80 MCG/ACT INHALATION AEROSOL SOLUTION active 2 puff twice a day Rosi Rene tizanidine 4 mg capsule active 1 three times a day Rosi Rene ESTRACE 1 MG ORAL TABLET completed once a day - Aysha Funk hydrocodone-mihaela taminophen 10-325 mg tablet active as directed Ilda Torres NORTRIPTYLINE HCL 10 MG ORAL CAPSULE completed 2 pills at bedtime - Rosi Rene fluoxetine 60 mg tablet active Take 1 tablet once a day Ilda Torres METOPROLOL TARTRATE 25 MG ORAL TABLET completed one pill twice a day - Rick Mcneal clonazepam 0.5 mg tablet active 1 twice a day Rosi Rene ACYCLOVIR 400 MG ORAL TABLET completed once a day - Aysha Funk norethindrone (contraceptive) 0.35 mg tablet active once a day Rosi Benavidesfaustinobaudiliostonekandy losartan 100 mg tablet active Take 1 tablet once a day Rick Nicolelani gabapentin 300 mg capsule completed 2 three times a day - Evita Carranza CAD DETAILER SOCIAL HISTORY Date Observation Value Provider alcohol use no Sandoval Lacey MD smoking/tobacco cess ation, patient education and counseling yes Sandoval Lacey MD number of years as a smoker 35 a Sandoval Lacey MD smoking history, tot al pack/day 1 Sandoval Lacey MD cigarette use yes Sandoval Christianson smoking status Current every day smoker U valarie Lacey MD smoking status Current every day smoker Cameron Lacey MD alcohol use no Sandoval Lacey MD smoking/tobacco cess ation, patient education and counseling yes Sandoval Lacey MD number of years as a smoker 35 a Sandoval Lacey MD smoking history, tot al pack/day 1 Sandoval Lacey MD cigarette use yes Sandoval Christianson social history E&M S moking History: P atient currently smokes every day. P atient has been counseled to quit. Sandoval Lacey MD smoking/tobacco cess ation, patient education and counseling yes Sandoval Lacey MD smoking status Current every day smoker U valarie Lacey MD social history E&M S moking History: P atient currently smokes every day. P atient has been counseled to quit. Sandoval Lacey MD social history reviewed E&M revi ewed - no changes required Sandoval Lacey MD smoking/tobacco cess ation, patient education and counseling yes Nazia Reid number of years as a smoker 35 a Nazia Franklin smoking history, tot al pack/day 1 Nazia Franklin cigarette use yes Nazia Franklin smoking status Current every day smoker Irlanda Reid social history E&M S moking History: Sami call currently smokes every day. Sandoval Lacey MD social history reviewed E&M revi ewed - no changes required Sandoval Lacey MD cigarette use yes Annie Mayes mane smoking status Current every day smoker Tony Wallace social history E&M S moking History: Sami call is a former smoker. Evita Mondragon Bertoradha CAD DETAILER number of years as a smoker 35 a Evita Mondragon Tere CAD DETAILER smoking history, tot al pack/day 1 Evitahanna Carranza CAD DETAILER cigarette use yes Evita Mondragon Sarah lle CAD DETAILER smoking status Former smoker Evita tarangoe CAD DETAILER social history reviewed E&M revi ewed - no changes required Evita Giancarlo Tere PADILLA social history E&M S moking History: Sami call is a former smoker. Sandoval Lacey MD social history reviewed E&M revi ewed - no changes required Sandoval Lacey MD smoking history, tot al pack/day 1 Taylor Gaytan cigarette use yes Taylor Gaytan smoking status Former smoker Taylor Gaytan number of years as a smoker 35 a Sandoval Lacey MD smoking status Former smoker Sandoval Lacey MD social history reviewed E&M revi ewed - no changes required Sandoval Lacey MD social history E&M S moking History: Sami call currently smokes every day. Sandoval Lacey MD smoking history, tot al pack/day 1 ppd Sandoval Lacey MD cigarette use yes Tad Dobbins s social history E&M S moking History: Sami call is a former smoker. Sandoval Lacey MD social history reviewed E&M revi ewed - no changes required Sandoval Lacey MD number of years as a smoker 35 a Jadyn Blackmanby smoking history, tot al pack/day 1 ppd Jadyn Blackmanby cigarette use yes Jadyn Javier smoking status Former smoker Jadyn Blackmanby smoking status Former smoker Sandoval Lacey MD social history reviewed E&M revi ewed - no changes required Sandoval Lacey MD social history E&M S moking History: Sami call is a former smoker. Sandoval Lacey MD number of years as a smoker 35 a Aysha Funk smoking history, tot al pack/day 1 ppd Aysha Funk cigarette use yes Aysha Alexandre sanjuanitaatilio social history E&M S moking History: Sami call is a former smoker. Nina Brown NP social history reviewed E&M revi ewed - no changes required Nina Brown NP number of years as a smoker 35 a Ilda Brian smoking history, tot al pack/day 1 ppd Ilda Torres cigarette use yes Ilda watt smoking status Former smoker Ilda kaur number of grandchildren Sandoval Lacey MD U valarie Lacey MD alcohol use no Sandoval Lacey MD social history E&M S moking History: Sami call is a former smoker. Sandoval Lacey MD social history reviewed E&M revi ewed - no changes required Sandoval Lacey MD number of years as a smoker 35 a Aysha Good smoking history, tot al pack/day 1 ppd Aysha Funk cigarette use yes Aysha Alexandre franky smoking status Former smoker Sandoval Lacey MD social history E&M S moking History: P oneyda currently smokes every day. P atient has been counseled to quit. Rick Mcneal social history reviewed E&M revi ewed - no changes required Rick Mcneal smoking/tobacco cess ation, patient education and counseling yes Ilda Brian number of years as a smoker 35 a Ilda Brian smoking history, tot al pack/day 1 ppd Ilda Brian cigarette use yes Ilda watt smoking status Current every day smoker Giancarlo Torres social history E&M S moking History: P oneyda currently smokes every day. P oneyda has been counseled to quit. Chai Mcpherson social history reviewed E&M revi ewed - no changes required Chai Mcpherson smoking/tobacco cess ation, patient education and counseling yes Hanskuldipanai Mcpherson number of years as a smoker 35 a Hanskuldipanai Mcpherson smoking history, tot al pack/day 1 ppd Hanskuldipanai Mcpherson cigarette use yes Chai Mcpherson smoking status Current every day smoker T gustavo Mcpherson smoking/tobacco cess ation, patient education and counseling yes Anatoly Gil social history reviewed E&M revi ewed - no changes required Anatoly Gil number of years as a smoker 35 a Ilda Brian smoking history, tot al pack/day 1 ppd Ilda Torres cigarette use yes Ilda watt smoking status Current every day smoker Giancarlo Torres social history reviewed E&M revi ewed - no changes required Aston Harley social history E&M S moking History: P atient currently smokes every day. Aston Cherri alcohol use no Tru Szymanski number of years as a smoker 35 a Tru Szymanski smoking history, tot al pack/day 1 ppd Florence Szymanski cigarette use yes Florence Szymanski smoking status Current every day smoker Daja dillon Szymanski number of grandchildren Danelle Harley social history reviewed E&M revi ewed - no changes required Aston Harley social history E&M S moking History: P atient currently smokes every day. Aston Harley alcohol use no Rosi Mckinney lder number of years as a smoker 35 a Rosi Hailestoneer smoking history, tot al pack/day 1 ppd Rosi Hailestoneer cigarette use yes Rosi Haile elder smoking status Current every day smoker K felisa Hunterer social history reviewed E&M revi ewed - no changes required Danelle Prieto MD alcohol use no Florence Szymanski number of years as a smoker 35 a Florence Szymanski smoking history, tot al pack/day [facility] Florence Szymanski smoking status Current every day smoker K santana Szymanski social history E&M S moking History: P atient currently smokes every day. Danelle Prieto MD social history reviewed E&M revi ewed - no changes required Danelle Prieto MD alcohol use no Shauna Negro number of years as a smoker 35 a Shauna Negro smoking history, tot al pack/day 1 ppd Shauna Negro cigarette use yes Shauna Negro smoking status Current every day smoker L mayank Negro social history reviewed E&M he millan - no changes required Yari Pinedo number of years as a smoker 35 a Rosi Benavidescorbinkandy smoking history, tot al pack/day 1 ppd Rosi Arguetabaudiliopooja cigarette use yes Rosi patton smoking status Current every day smoker K felisa Anju FAMILY HISTORY Family Member Condition Father Family History of Yeh dden Cardiac : Mother Family History of Yeh dden Cardiac : Mother Family History of CV A or Stroke: Mother Family History of Ao rtic Aneurysm: INSURANCE PROVIDERS Payer name Policy type / Coverage type [place] [employer] party ID [employer] MEDICAID (2) Medicaid [id number] ADVANCE DIRECTIVES Name Date DISCUSSED - NO DECISION MADE TREATMENT PLAN Date Name Performer [id number],C,S he has gained 18 lbs since she was last seen in October. 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 Take 1 tablet once a day Lasix 40 Mg Tablet (Furosemide) ..... Take one tab (40mg) mwfsun, 1.5 tablet (=60mg) on tthsat. Sandoval Lacey MD [id number],C,suggest she s top tizanidine Sandoval Lacey MD [id number],C,S he has gained 18 lbs since she was last seen in October. She would like Ozempic for weight loss, has been on it in the past and it helped her lose over 20lbs I have written perscription for Ozempic as I believe it would be beneficial for her exercise tolerance to lose weight Sandoval Lacey MD [id number],S,On xarelto Us ozzy Lacey MD [id number],C,C lass 2, appears compensated. H er updated medication list for this problem includes: Losartan 100 Mg Tablet (Losartan) ..... Take 1 tablet once a day Lasix 40 Mg Tablet (Furosemide) ..... Take one tab (40mg) mwfsun, 1.5 tablet (=60mg) on tthsat. Sandoval Lacey MD [id number],S, B P today: 135/81 P rior BP: 118/74 (05/08/2022) Labs Reviewed: C reat: 0.83 (01/25/2021) C hol: 102 (01/25/2021) HDL: 22 (01/25/2021) Her updated medication list for this problem includes: Losartan 100 Mg Tablet (Losartan) ..... Take 1 tablet once a day Lasix 40 Mg Tablet (Furosemide) ..... Take one tab (40mg) mwfsun, 1.5 tablet (=60mg) on tthsat. Sandoval Lacey MD [id number],S, Sandoval Lacey MD [id number],S,stable Sandoval Lacey MD [id number],S, B P today: 118/74 P rior BP: 118/72 (04/16/2022) Labs Reviewed: C reat: 0.83 (01/25/2021) C hol: 102 (01/25/2021) HDL: 22 (01/25/2021) Sandoval Lacey MD [id number],S,S eems atypcial and with the negative stress test I would not pursue a cardiac cath. Possibly can be sent to a GI doctor. Sandoval Lacey MD [id number],S,T he Patient was reencouraged to stop smoking. We'll' set her up for PFTs and a 6 minute walk test to evaluate for a pulmonary cause of her SOB. Evita Giancarlo Carranza NP [id number],S, c ontinue compression socks Evita Mondragon Tere PADILLA [id number],S, E xertional dyspnea persists. Last stress test in November 2020 was negative for ischemia, but given her symptoms she'd benefit from a repeat stress test and echo. Evita Mondragon Tere PADILLA [id number],B, B P today: 118/72 P rior BP: 147/78 (03/05/2022) Her updated medication list for this problem includes: Losartan 100 Mg Tablet (Losartan) ..... Take 1 tablet once a day Lasix 40 Mg Tablet (Furosemide) ..... Take one tab (40mg) mwfsun, 1.5 tablet (=60mg) on tthsat. Evitaflex Carranza NP [id number],S, Evita garcia NP [id number],S, Sandoval Lacey MD [id number],C,S OB persists and worsening, cannot go about routine tasks without getting SOB. Sandoval Lacey MD [id number],C,T oe numbness, leg and knee pain, cramps. Likely neuropathy. We will stop gabapentin as it provides no benefit. Sandoval Lacey MD [id number],W,P robalby due to pain in the legs. B P today: 180/90 P rior BP: 140/70 (04/07/2021) Labs Reviewed: C reat: 0.83 (01/25/2021) C hol: 102 (01/25/2021) HDL: 22 (01/25/2021) Sandoval Lacey MD [id number],C,mild Sandoval solano MD [id number],C,Quit smoking. Sandoval Lacey MD [id number],C,? Sandoval arias MD [id number],C,I am unsure what the reason is for her leg pain, but I am not sure it is vascular. Neuropathy? Sandoval Lacey MD [id number],C, B P today: 140/70 P rior BP: 160/80 (01/24/2021) Labs Reviewed: C reat: 0.83 (01/25/2021) C hol: 102 (01/25/2021) HDL: 22 (01/25/2021) Her updated medication list for this problem includes: Losartan 100 Mg Tablet (Losartan) ..... Take 1 tablet once a day Lasix 40 Mg Tablet (Furosemide) ..... Take one tab (40mg) mwfsun, 1.5 tablet (=60mg) on tthsat. Sandoval Lacey MD [id number],S,c ontinue compression socks, and await how her sx behave once she has received IV iron infusions. Sandoval Lacey MD [id number],S,S he received blood and iron pills, she is apparenlty still anemic and so will await further instructions from the bottom sander she has seen. Sandoval Lacey MD [id number],S,will recheck Sandoval Lacey MD [id number],S, Sandoval Lacey MD [id number],C,p robably from the pain B P today: 160/80 P rior BP: 130/70 (12/27/2020) Labs Reviewed: C reat: 0.91 (03/16/2020) C hol: 112 (07/03/2017) HDL: 27 (07/03/2017) Sandoval Lacey MD [id number],C,on xarelto Us ozzy Lacey MD [id number],W,i will stop her lipitor and give her a drug holiday also with her bilateral leg swelling, will like to make sure she doesn't have iliac vein compression W ill do a venogram with Ivus Sandoval Lacey MD Cardiology Sandoval Lacey MD Cardiology Sandoval Lacey MD Cardiology:appears compensated U valarie Lacey MD Cardiology:likely neuropathy Herminia Lacey MD Cardiology:appears compensated U valarie Lacey MD Cardiology:continue use of inhalers H er updated medication list for this problem includes: Symbicort 160-4.5 Mcg/actuation Hfa Aerosol Inhaler (Budesonide-formoterol) ..... 2 puff twice a day Ventolin Hfa 90 Mcg/actuation Hfa Aerosol Inhaler (Albuterol sulfate) Sandoval Lacey MD Cardiology:Will have her come back in 1 month for BP check. Normally BP is well controlled. B P today: 156/86 P rior BP: 123/74 (05/07/2023) Labs Reviewed: C reat: 0.83 (01/25/2021) Chol: 102 (01/25/2021) HDL: 22 (01/25/2021) LDL: 56 (01/25/2021) T (01/25/2021) Sandoval Lacey MD Cardiology Sandoval Lacey MD Cardiology Sandoval Lacey MD Cardiology Sandoval Lacey MD Cardiology:She has g ained 18 lbs since she was last seen in October. 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 Take 1 tablet once a day Lasix 40 Mg Tablet (Furosemide) ..... Take one tab (40mg) mwfsun, 1.5 tablet (=60mg) on tthsat. Sandoval Lacey MD Cardiology:suggest she stop tiza nidnola Lacey MD Cardiology:She has g ained 18 lbs since she was last seen in October. She would like Ozempic for weight loss, has been on it in the past and it helped her lose over 20lbs I have written perscription for Ozempic as I believe it would be beneficial for her exercise tolerance to lose weight Sandoval Lacey MD Cardiology:On xarelto Sandoval patterson MD Cardiology:Class 2, appears compensated. H er updated medication list for this problem includes: Losartan 100 Mg Tablet (Losartan) ..... Take 1 tablet once a day Lasix 40 Mg Tablet (Furosemide) ..... Take one tab (40mg) mwfsun, 1.5 tablet (=60mg) on tthsat. Sandoval Lacey MD Cardiology: B P today: 135/81 P rior BP: 118/74 (05/08/2022) Labs Reviewed: C reat: 0.83 (01/25/2021) C hol: 102 (01/25/2021) HDL: 22 (01/25/2021) Her updated medication list for this problem includes: Losartan 100 Mg Tablet (Losartan) ..... Take 1 tablet once a day Lasix 40 Mg Tablet (Furosemide) ..... Take one tab (40mg) mwfsun, 1.5 tablet (=60mg) on tthsat. Sandoval Lacey MD Cardiology Sandoval Lacey MD Cardiology:stable Sandoval Arias D Cardiology: B P today: 118/74 P rior BP: 118/72 (04/16/2022) Labs Reviewed: C reat: 0.83 (01/25/2021) C hol: 102 (01/25/2021) HDL: 22 (01/25/2021) Sandoval Lacey MD Cardiology:Seems aty pcial and with the negative stress test I would not pursue a cardiac cath. Possibly can be sent to a GI doctor. Sandoval Lacey MD Cardiology:The Patie nt was reencouraged to stop smoking. We'll' set her up for PFTs and a 6 minute walk test to evaluate for a pulmonary cause of her SOB. Evita Carranza NP Cardiology: c ontinue compression socks Evita Carranza NP Cardiology: E xertional dyspnea persists. Last stress test in November 2020 was negative for ischemia, but given her symptoms she'd benefit from a repeat stress test and echo. Eviat Carranza NP Cardiology: B P today: 118/72 P rior BP: 147/78 (03/05/2022) Her updated medication list for this problem includes: Losartan 100 Mg Tablet (Losartan) ..... Take 1 tablet once a day Lasix 40 Mg Tablet (Furosemide) ..... Take one tab (40mg) mwfsun, 1.5 tablet (=60mg) on tthsat. Evita Carranza NP Cardiology Evita jansen NP Cardiology Sandoval Lacey MD Cardiology:SOB persi sts and worsening, cannot go about routine tasks without getting SOB. Sandoval Lacey MD Cardiology:Toe numbn ess, leg and knee pain, cramps. Likely neuropathy. We will stop gabapentin as it provides no benefit. Sandoval Lacey MD Cardiology:Probalby due to pain in the legs. B P today: 180/90 P rior BP: 140/70 (04/07/2021) Labs Reviewed: C reat: 0.83 (01/25/2021) C hol: 102 (01/25/2021) HDL: 22 (01/25/2021) Sandoval Lacey MD Cardiology:mild Sandoval Lacey MD Cardiology:Quit smoking. Sandoval chambers MD Cardiology:? Sandoval Lacey MD Cardiology:I am unsu re what the reason is for her leg pain, but I am not sure it is vascular. Neuropathy? Sandoval Lacey MD Cardiology--MOD Judith reddy visit : B P today: 140/70 P rior BP: 160/80 (01/24/2021) Labs Reviewed: C reat: 0.83 (01/25/2021) C hol: 102 (01/25/2021) HDL: 22 (01/25/2021) Her updated medication list for this problem includes: Losartan 100 Mg Tablet (Losartan) ..... Take 1 tablet once a day Lasix 40 Mg Tablet (Furosemide) ..... Take one tab (40mg) mwfsun, 1.5 tablet (=60mg) on tthsat. Sandoval Lacey MD Cardiology--LADONNA reddy visit :continue compression socks, and await how her sx behave once she has received IV iron infusions. Sandoval Lacey MD Cardiology--MOD Judith reddy visit :She received blood and iron pills, she is apparenlty still anemic and so will await further instructions from the bottom sander she has seen. Sandoval Lacey MD Cardiology:will recheck Sandoval solano MD Cardiology Sandoval Lacey MD Cardiology:probably from the pain B P today: 160/80 P rior BP: 130/70 (12/27/2020) Labs Reviewed: C reat: 0.91 (03/16/2020) C hol: 112 (07/03/2017) HDL: 27 (07/03/2017) Sandoval Lacey MD Cardiology:on xarelto Sandoval patterson MD Cardiology:i will st op her lipitor and give her a drug holiday also with her bilateral leg swelling, will like to make sure she doesn't have iliac vein compression W ill do a venogram with Ivus Sandoval Lacey MD Cardiology follow up : A bnormal stress test showing mild perfusion defect w/o reversibility. Most likely it may be related to attenuation artificact based on the way her body sizde is. She will need to be reevaluated in a few weeks if cath is to be planned since she is currently on xarelto 20mg for her PE. Nina Brown NP Cardiology follow up : B P today: 130/70 P rior BP: 136/64 (12/02/2020) Her updated medication list for this problem includes: Lasix 40 Mg Oral Tablet (Furosemide) ..... Take one tab (40mg) mwfsun, 1.5 tablet (=60mg) on tthsat. Losartan Potassium 100 Mg Oral Tablet (Losartan potassium) ..... Take one tablet daily Nina Brown NP Cardiology follow up : N o DVT on venous scan. N ormal flow on arterial dopplers. E ventually will sadia to wear compression stockings. Nina Brown NP Cardiology follow up : V enous dopplers 12/25/20 1 . No evidence of a deep vein thrombosis of the lower extremities bilaterally. 2 . Venous insufficiency of the sapheno femoral junction bilaterally. 3 . Significant venous insufficiency of the great saphenous vein bilaterally. On xarelto 20mg daily. C /o swelling and tenderness to touch in bilateral legs. R ecommended to wear compression hose after a few weeks of OAC. Nina Brown NP Cardiology follow up : E cho 02/2020 confirms high right sided pressures and perserved EF. N o ischemia on rega stress 12/11/20. Her updated medication list for this problem includes: Lasix 40 Mg Oral Tablet (Furosemide) ..... Take one tab (40mg) mwfsun, 1.5 tablet (=60mg) on tthsat. Losartan Potassium 100 Mg Oral Tablet (Losartan potassium) ..... Take one tablet daily Nina Brown NP Cardiology follow up : W as diagnosed with a PE 11/12/2020. Mild right lower lobe pulmonary embolism Subsegmental PE P ersisting SOB. O n xarelto 20mg daily. T he Patient was reencouraged to stop smoking. Nina Brown NP Cardiology: H er updated medication list for this problem includes: Lipitor 20 Mg Oral Tablet (Atorvastatin calcium) ..... One tablet daily Sandoval Lacey MD Cardiology:Continue Lasix Sandoval Lacey MD Cardiology:We will o btain venous and arterial dopplers. Sandoval Lacey MD Cardiology:Was diagn osed with a PE 11/12/2020, now on OAC Sandoval Lacey MD Cardiology Sandoval Lacey MD Cardiology:Echo 02/24 confirms high right sided pressures and perserved EF. Will continue medical therapy to control BP and lasix and obtain a regadenoson to r/o ischemia. Her updated medication list for this problem includes: Lasix 40 Mg Oral Tablet (Furosemide) ..... Take one tab (40mg) mwfsun, 1.5 tablet (=60mg) on tthsat. Losartan Potassium 100 Mg Oral Tablet (Losartan potassium) ..... Take one tablet daily Sandovla Lacey MD Cardiology: B P today: 136/64 P rior BP: 169/73 (05/14/2020) Labs Reviewed: C reat: 0.91 (03/16/2020) C hol: 112 (07/03/2017) HDL: 27 (07/03/2017) Sandoval Lacey MD Cardiology follow up Rick Mcneal Cardiology follow up Rick Mcneal Cardiology follow up Rick Mcneal Cardiology follow up Rick Mcneal Cardiology follow up Rick Mcneal Cardiology follow up Rick Mcneal Electrophysiology fo llow up : B P today: 130/78 P rior BP: 124/80 (03/17/2019) Her updated medication list for this problem includes: Lasix 40 Mg Oral Tablet (Furosemide) ..... Take one tab (40mg) mwfsun, 1.5 tablet (=60mg) on tthsat. Metoprolol Tartrate 25 Mg Oral Tablet (Metoprolol tartrate) ..... One pill twice a day Cozaar 50 Mg Oral Tablet (Losartan potassium) ..... One a day at night Orders: C OMPREHENSIVE METABOLIC PANEL, W/EGFR (98100) P ROBNP, N TERMINAL (43837) C BC (H/H, RBC, INDICES, WBC, PLT) (1759) T SH, free T4, total T3 (7444) [place] [facility] Electrophysiology fo llow up : H er updated medication list for this problem includes: Lipitor 20 Mg Oral Tablet (Atorvastatin calcium) ..... One tablet daily [place] [facility]rophysiology fo llow up : L ast Poornima 06/2017: C onclusions: 1 . Normal arterial flow of the lower extremities bilaterally. 2 . Mild artherosclerosis bilaterally Pt to increase lasix [place] [facility] fo llow up : L ast PFT 03/2019: P FConsult : The FEV1, FVC and XJR33-66% are reduced but the FEV1/FVC ratio is normal. The MVV is reduced. The FVC is reduced relative to the SVC indicating air trapping. While the TLC, FRC and SVC are within normal limits, the RV is increased. Following administration of bronchodilators, there is no significant response. The diffusing capacity is normal. C onclusions: Minimal airway obstruction is present suggesting small airway disease. Pulmonary Function Diagnosis: Minimal Obstructive Airways Disease Order Note: No significant changes in FEV1 when compared to previous study. Order Note: Significant increase in DLCOunc when compared to previous study. [facility] Electrophysiology fo llow up : H er updated medication list for this problem includes: Lasix 40 Mg Oral Tablet (Furosemide) ..... Take one tab (40mg) mwfsun, 1.5 tablet (=60mg) on tthsat. Metoprolol Tartrate 25 Mg Oral Tablet (Metoprolol tartrate) ..... One pill twice a day Cozaar 50 Mg Oral Tablet (Losartan potassium) ..... One a day at night O rders: E KG (CPT-09672) C OMPREHENSIVE METABOLIC PANEL, W/EGFR (12262) P ROBNP, N TERMINAL (16263) C BC (H/H, RBC, INDICES, WBC, PLT) (1759) T SH, free T4, total T3 (7444) CONCLUSIONS: 1 . Normal left ventricular systolic function. Normal left ventricular size. Normal left ventricular wall thickness. There is i mpaired LV relaxation. E/E': 8.9. Left ventricular ejection fraction is measured at 60 %. 2 . There is non-specific thickening of the mitral valve leaflets. There is trace physiologic mitral valve regurgitation. 3 . Normal appearing tricuspid valve leaflets. There is mild tricuspid regurgitation. IVC is normal in size with normal r espiratory response. The RA pressure is estimated at 3.0 mmHg. Estimated peak pulmonary artery systolic pressure is 36.0 m mHg. E lectronically Signed By: Danelle Rodriguez 2 10:25:24 CDT Chai Mcpherson Electrophysiology fo llow up : H er updated medication list for this problem includes: Metoprolol Tartrate 25 Mg Oral Tablet (Metoprolol tartrate) ..... One pill twice a day Orders: EKG (CPT-80455) 9 9215 HIGH Complex (CPT-76919) C omplete Echo (CPT-40098) F VC - 33371 (41478) F RC - 95695 (76417) D LCO - 37683 (17639) Anatoly Gil Electrophysiology fo llow up : H er updated medication list for this problem includes: Lasix 40 Mg Oral Tablet (Furosemide) ..... One tablet daily Metoprolol Tartrate 25 Mg Oral Tablet (Metoprolol tartrate) ..... One pill twice a day Cozaar 50 Mg Oral Tablet (Losartan potassium) ..... One a day at night Orders: 9 9215 HIGH Complex (CPT-53622) C omplete Echo (CPT-74730) F VC - 24994 (23992) F RC - 87891 (85267) D LCO - 79181 (70327) Anatoly Gil Electrophysiology follow up Alejandro Gil Electrophysiology fo llow up : B P today: 124/80 P rior BP: 130/82 (04/08/2018) Labs Reviewed: C reat: 0.92 (03/12/2018) C hol: 112 (07/03/2017) HDL: 27 (07/03/2017) Her updated medication list for this problem includes: Lasix 40 Mg Oral Tablet (Furosemide) ..... One tablet daily Metoprolol Tartrate 25 Mg Oral Tablet (Metoprolol tartrate) ..... One pill twice a day Cozaar 50 Mg Oral Tablet (Losartan potassium) ..... One a day at night Anatoly Gil Electrophysiology fo llow up:Orders: F VC - 70259 (96307) F RC - 74367 (43674) D LCO - 44348 (48493) Aston Harley Electrophysiology fo llow up:Advised patient to start taking her 50mg Losartan one tabet at night. BP today: 130/82 P rior BP: 120/80 (03/04/2018) Labs Reviewed: C reat: 0.92 (03/12/2018) C hol: 112 (07/03/2017) HDL: 27 (07/03/2017) Her updated medication list for this problem includes: Lasix 40 Mg Oral Tablet (Furosemide) ..... One tablet daily Metoprolol Tartrate 25 Mg Oral Tablet (Metoprolol tartrate) ..... One pill twice a day Cozaar 50 Mg Oral Tablet (Losartan potassium) ..... One a day at night Aston Harley Electrophysiology fo llow up:Orders: S chedule Followup (*) 9 9214 MOD Complex (CPT-04167) Her updated medication list for this problem includes: Metoprolol Tartrate 25 Mg Oral Tablet (Metoprolol tartrate) ..... One pill twice a day Aston Harley Electrophysiology fo llow up:Echo today 04/08/18 shows EF 60%. Orders: E KG (CPT-86956) S chedule Followup (*) 9 9214 MOD Complex (CPT-41646) Her updated medication list for this problem includes: Lasix 40 Mg Oral Tablet (Furosemide) ..... One tablet daily Metoprolol Tartrate 25 Mg Oral Tablet (Metoprolol tartrate) ..... One pill twice a day Cozaar 50 Mg Oral Tablet (Losartan potassium) ..... One a day at night Aston Harley Electrophysiology Fo llow up :Her updated medication list for this problem includes: Lasix 40 Mg Oral Tablet (Furosemide) ..... One tablet daily Metoprolol Tartrate 25 Mg Oral Tablet (Metoprolol tartrate) ..... One pill twice a day Cozaar 50 Mg Oral Tablet (Losartan potassium) ..... One a day Orders: 9 9215 HIGH Complex (CPT-67660) C omplete Echo (CPT-12458) C OMPREHENSIVE METABOLIC PANEL, W/EGFR (80150) P ROBNP, N TERMINAL (28469) S chedule Followup (*) Aston Harley Electrophysiology Fo llow up :Her updated medication list for this problem includes: Lipitor 20 Mg Oral Tablet (Atorvastatin calcium) ..... One tablet daily Aston Harley Electrophysiology Fo llow up :BP today: 120/80 P rior BP: 122/80 (07/02/2017) Labs Reviewed: C reat: 0.76 (07/03/2017) C hol: 112 (07/03/2017) HDL: 27 (07/03/2017) Her updated medication list for this problem includes: Lasix 40 Mg Oral Tablet (Furosemide) ..... One tablet daily Metoprolol Tartrate 25 Mg Oral Tablet (Metoprolol tartrate) ..... One pill twice a day Cozaar 50 Mg Oral Tablet (Losartan potassium) ..... One a day Astonus Harley Electrophysiology:Will check her Lipid Panel Danelle Prieto MD Electrophysiology: B P today: 122/80 P rior BP: 140/90 (04/09/2017) Labs Reviewed: C reat: 0.8 (04/09/2017) C hol: 209 (04/09/2017) HDL: 28 (04/09/2017) T (04/09/2017) Danelle Prieto MD Cardiology:Will check her lipid panel. Danelle Prieto MD Cardiology:POORNIMA showe d Mild atherosclerosis with normal arterial flow is noted in the lower extremities bilaterally. Will have repeat POORNIMA done in 3 months. Danelle Prieto MD Cardiology: B P today: 140/90 P rior BP: 118/80 (02/26/2017) Danelle Prieto MD Electrophysiology Ne w Patient:Symptomatic with chest tighness lasting several minutes to an hour for approx. over a year. Will have adenoside stress test done and echo. Yari Pineod Electrophysiology Ne w Patient: B P today: 118/80 Yari Khris Date Name CRP, high sensitivit y Microalb/Creatinine Urine, Random PROBNP, N TERMINAL BASIC METABOLIC PANE L W/EGFR Stress Regadenoson Complete Echo Ambulatory Oximetry 6 minute walk test DLCO - 14638 FRC - 76111 FVC - 39278 Sleep Study Home PROTHROMBIN TIME WIT H INR LIPID PANEL CBC (INCLUDES DIFF/P LT) BASIC METABOLIC PANE L W/EGFR Holter Monitor 24 Hr Venous Doppler Bilat eral LE - Reflux Arterial Duplex Bi-L ower EX Stress Regadenoson TSH, free T4, total T3 CBC (H/H, RBC, INDIC ES, WBC, PLT) PROBNP, N TERMINAL COMPREHENSIVE METABO LIC PANEL, W/EGFR DLCO - 27103 FRC - 76993 FVC - 61945 Complete Echo DLCO - 64421 FRC - 56367 FVC - 67882 PROBNP, N TERMINAL COMPREHENSIVE METABO LIC PANEL, W/EGFR Complete Echo Complete Echo DLCO - 54752 FRC - 90184 FVC - 49928 LIPID PANEL COMPREHENSIVE METABO LIC PANEL, W/EGFR LIPID PANEL CBC (H/H, RBC, INDIC ES, WBC, PLT) COMPREHENSIVE METABO LIC PANEL, W/EGFR Arterial Duplex Bi-L ower EX Aorta Duplex Ultraso und (AAA) DLCO - 58684 FRC - 07587 FVC - 25145 STR - Adenosine Complete Echo HISTORY OF PROCEDURES Procedure Date Procedure Name Provider Procedure Notes S tatus EKG Sandoval Lacey MD completed EKG Sandoval Lacey MD completed 6 minute walk test Danelle fowler MD completed Spirometry Danelle arreola MD completed FVC / MVV - 92479 Danelle jenkins MD completed BLOOD COUNT HEMOGLOBIN Danelle gonzalez MD completed FRC - 64812 Danelle arreola MD completed SpO2 w/o 6min walk/titration Danelle Prieto MD completed SVC - 95952 Danelle arreola MD completed DLCO - 77842 Danelle arreola MD completed EKG Sandoval Lacey MD completed Holter, 24 or 48 Sandoval Lacey MD com pleted EKG Danelle arreola MD completed FVC / MVV with bronchodilator - 38445 Danelle Prieto MD completed BLOOD COUNT HEMOGLOBIN Danelle gonzalez MD completed FRC - 25605 Danelle arreola MD completed SpO2 w/o 6min walk/titration Danelle Pireto MD completed DLCO - 03301 Danelle arreola MD completed EKG Danelle arreola MD completed FVC / MVV with bronchodilator - 68144 Danelle Prieto MD completed BLOOD COUNT HEMOGLOBIN Danelle gonzalez MD completed FRC - 03343 Danelle arreola MD completed SpO2 w/o 6min walk/titration Danelle Prieto MD completed DLCO - 22610 Danelle arreola MD completed Schedule Followup Danelle jenkins MD in 1 year completed EKG Danelle arreola MD completed Schedule Followup Danelle jenkins MD in 1 wk completed EKG Danelle arreola MD completed EKG Danelle arreola MD completed SNOMED-CT: [id number] Current Medications Documented Danelle Prieto MD completed Schedule Followup Danelle jenkins MD 3 months completed EKG Danelle arreola MD completed SNOMED-CT: [id number] Current Medications Documented Danelle Prieto MD completed Stress EKG Aris Mac MD complete d Regadenoson, 4 units Danelle tai MD completed Cardiolite, 2 units Danelle garza MD completed SPECT Images Elise Arenas MD com pleted FVC / MVV with bronchodilator - 93740 Danelle Prieto MD completed BLOOD COUNT HEMOGLOBIN Danelle gonzalez MD completed FRC - 58287 Danelle arreola MD completed SpO2 - 62671 Danelle arreola MD completed DLCO - 43215 Danelle arreola MD completed EKG Danelle arreola MD completed SNOMED-CT: [id number] Current Medications Documented Danelle Prieto MD completed
--- OUTSIDE RECORDS SUMMARY | 2024-11-12 16:57 | XMS_ITS | Data Portability ---
Author Organization [facility], Main Office Address [address] [place] [address] Care Team Providers Care Sample Grinder Name Role Phone LYN AMAYA Primary Care Provider LYN AMAYA Referring Provider [phone] MIN THOMAS Hematology/Oncology Assessment Encounter Date Assessment Date Assessment LastModified by Organization Details LastModified Time 05/08/2024 05/08/2024 59-year-old femhanna hargrove presents for follow-up evaluation of her bilateral knees, right worse than left. She has a history of fibromyalgia and longstanding knee pain that has been getting worse over the past couple of months. Is worse when she gets up in the morning and when going up and down stairs. She reports soreness and fatigue in her right leg as well radiating up thigh. She has a walker but does not use it regularly. She has been taking hydrocodone for other problems, and she has also had a Medrol Dosepak. She is on Xarelto. Review of systems per patient questionnaire Physical exam: She has nonantalgic gait. Range of motion 0-120 bilaterally. Tenderness over the medial and lateral joint line as well as over the patella. She has significant soreness over the quads and hamstrings. She has 4/5 strength with knee flexion extension on the right, 5- out of 5 on the left. X-rays reviewed, demonstrating mild to moderate degenerative changes with joint space narrowing particularly of the medial compartments bilaterally She has knee osteoarthritis and muscle soreness in the context of fibromyalgia. We will send her to physical therapy, and she can also add topical Voltaren and gapq-toa-priulpv Tylenol, since she can not take NSAIDs for the blood thinner. We will have her follow-up as needed. If she has recurrence of symptoms after the course of treatment, the next step would be to consider a cortisone injection, which would be both a diagnostic and therapeutic injection. She is in agreement with the plan. [email or web address] Not available 05/08/2024 12:47:59 05/16/2024 05/16/2024 This note is dictated and transcribed by [employer]. Director Safety Council variances may occur. Despite proofreading, typographical errors may occur. Occasional wrong-word or '[id number]' substitutions may have occurred due to the inherent limitations of voice recording. Read the chart carefully and recognize, using context, where substitutions have occurred. [email or web address] Not available 05/16/2024 13:56:13 05/18/2024 05/18/2024 Assessment: Nicotine smoke: 1 ppd [id number] = 45 pack years, currently vaping PE 10/2020 c/o Dr. Lacey Multiple environmental allergens Methacholine (+) mild persistent asthma Hypertension Plan: The following were reviewed and explained to the patient: 6MW 09/12 20 no need for O2 supplementation nocturnal oximetry 09/25/20 0.3 minute < 89% Cardiac stress test 12/11 20 wnl Lab data 09/03/20 negative hypersensitivity pneumonitis profile, multiple environmental allergens, nl IgE Lab data 01/06/[address] 01/31/21 no PE, CHF, R>L atelectasis, granulomatous disease (chest, liver, spleen), hepatic steatosis PFT 09/12/20 nl FEV1/FVC, FEV1 2.00 L (87%), FVC 2.83 L (100%), TLC 4.89 L (108%), DLCO 51%, DLCO/VA 93% Methacholine challenge 08/27/22 FEV1 1.92 L (86%), (+) methacholine challenge at level 4 Patient is excused from 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 Her PE risk factors: nicotine products. Incentive spirometer x 5 minutes every 2 hours while awake to reverse and prevent further atelectasis. Patient quit smoking but she vapes. Nicotine cessation counseling provided. [place] for quitting include getting ready, getting support and encouragement, learning new skills and behaviors and being prepared to handle slips. Tips for dealing with cravings provided. Prevention of subsequent illnesses from nicotine addiction discussed. Comorbidities include but are not limited to hypertension, cerebrovascular disease, coronary heart disease, congestive heart failure, hyperlipidemia, COPD/asthma, peptic ulcer disease, esophagitis/gastri tis, and osteoporosis. Therapy options offered include: Quitting by total abstinence Receiving nicotine replacement therapy Undergoing hypnosis Filling a bupropion or varenicline prescription Enrolling in Quit For Life program Registering at [email or web address] Making a call to 6-094-PXQB-NOW ( ). A strong, clear, personalized message was given to the patient to quit smoking. The patient was urged to set a quit date. We discussed patient's barriers to quitting and I will be of assistance when patient is ready to quit. I encouraged patient to inform friends and family of plans to quit with a request for support. I encouraged the patient to remove all cigarettes from the environment. We reviewed any previous quit attempts and lessons learned from them. I encouraged total abstinence from smoking and advised the patient that drinking alcohol and/or associating with other smokers are associated with failure or relapse. Patient can enroll in [facility]'s smoking cessation class through Kamala Gilbert RN at . Enrollment is free and classes are held every wednesday of the month from 1:30 pm to 2:30 pm at the conference room next to the cafeteria on the ground floor. Patient saw Dr. Haydee Farmer for treatment of environmental allergies. She quit her nasal spray because it mckay her passageways. General information on bronchial asthma was covered. Patient will monitor peak flow daily at a set time and again when symptoms of chest tightness, cough, dyspnea or wheezing occur. Patient will bring peak flow record to subsequent visits. The color of a traffic light will guide the patient's use of asthma medications: (1) Green means Go Zone. Peak flow: above 80% of personal best. Symptoms: Breathing is good, no cough or wheeze present, patient sleeps through the night and can work and play. Plan: Patient will continue the use of preventative medicine. (2) Yellow means Caution Zone. Peak flow: between 50-80% of personal best. Symptoms: Presence of first signs of a cold, exposure to known trigger, mild wheeze, tight chest and coughing especially night. Plan: Patient will add quick-relief medicine to preventative medicine. (3) Red means Danger Zone. Peak flow: below 50% of personal best. Symptoms: Asthma is getting worse quickly and medicine is not helping, breathing is hard and fast, nose opens widely when breathing, ribs showing when breathing, and patient cannot speak in full sentences. Plan: Patient will get help from a physician immediately. Complete PFTs REY. Minimize albuterol nebs use. Continue albuterol HFA as needed. Continue Spiriva Handihaler once daily (noon). Continue Symbicort HFA 160/4.5 mcg 2 puffs BID (morning and evening). Gargle after use. She is reminded to rest 1 minute between the 1st and 2nd puff. Currently, she presses the canister twice and inhales once. The patient does not know how to accurately administer the inhalers. Today, the patient was shown how to take these medications. The proper technique for delivering these medications was instructed. The patient expressed a clear understanding and demonstrated back how to use these medications. Without the proper technique, the patient will not reap the benefits of these medications as the contents will not reach the lower airways as intended to be. Adherence to therapy is advocated. Nonadherence may lead to treatment failure, further progression of the condition, and other complications. Hospitals admissions are often the result of individuals not taking prescription medications accurately. Alternatively, greater adherence to medication regimens have shown to lower rates of hospitalization and decrease total medical costs in patients with chronic medical conditions. Advocated influenza vaccination annually and pneumonia vaccination in 2027. Advocated weight loss through diet and exercise. Patient's ideal body weight according to height and gender is up to 115 lbs. Encouraged patient to adjust caloric intake to maintain/achieve ideal body weight, emphasizing on fruits, vegetables, whole grains, and fat-free or low-fat products. These include lean meats, poultry, fish, beans, eggs, and nuts and foods that are low in saturated fats, trans-fats, cholesterol, salt (sodium), and glycemic index. Stressed the importance of regular exercise up to the patient's capacity limits. In this case, we recommend 20 min daily walking, 2 days a week of resistance training. Patient to monitor BP daily and bring records to PCP for further management. Follow-up: 1 week after PFT [email or web address] Not available 05/18/2024 10:44:03 Plan of Treatment Reminders Order Date Submit Date Provider Last Modified By Organization Details Last Modified Time Details Appointments Establish ed Patient 15 2024 10:30A M Rick Celis, DAYANA Not available Not available Not available Lab TSH + free T4, serum 2024 025 [email or web address] 2 [facility], [address] [place], [address], 11/08/2024 09:06:22 HbA1c (hemoglob in A1c), blood 2024 025 [email or web address] 2 [facility], [address] [place], [address], 11/08/2024 09:06:23 HbA1c (hemoglob in A1c), blood 2024 025 [email or web address] 2 [facility], [address] [place], [address], 11/08/2024 09:06:23 lipid panel, serum 2024 025 [email or web address] 2 [facility], [address] [place], [address], 11/08/2024 09:06:22 CMP, serum or plasma 2024 025 [email or web address] 2 [facility], [address] [place], [address], 11/08/2024 09:06:22 CBC w/ auto diff 2024 025 [email or web address] 2 [facility], [address] [place], [address], 11/08/2024 09:06:23 hepatitis C virus Ab, serum 2024 025 [email or web address] 2 [facility], [address] [place], [address], 11/08/2024 09:06:23 iron + total iron-bind ing capacity (TIBC), serum 2024 025 2 [facility], [address] [place], [address], 11/08/2024 09:06:22 vitamin B12 + folate, serum or blood 2024 025 [email or web address] 2 [facility], [address] [place], [address], 11/08/2024 09:06:22 BNP (B-type natriuret ic peptide), serum or plasma 2024 025 [email or web address] 2 [facility], [address] [place], [address], 11/08/2024 09:06:22 Referral physical therapist referral - please contact patient to schedule 2023 024 [email or web address] [facility], [address] [place], [address], 05/09/2024 12:20:17 Procedures upper endoscopy procedure (EGD) (PROC) 2024 025 [facility] (Pre-Screen), [address] [place], [address], 09/05/2024 08:40:47 capsule endoscopy (PROC) - please contact patient to schedule [email or web address] (Central Scheduling), [address] [place] [address], [address], 08/30/2024 12:14:05 Surgeries None recorded. Imaging MAMMO, screening , digital, bilateral - Please call patient to schedule. 2024 025 [email or web address] [facility] (One Call Scheduling), [address] [place], [address], 09/18/2024 11:58:35 XR, foot, 3 or more view 2023 024 [email or web address] [facility], [address], [address], [place], [address], 05/29/2024 10:29:35 XR, foot, 3 or more view 2023 024 [email or web address] [facility] [place], [address], [address], [place], [address], 05/29/2024 10:29:59 XR, knee 2023 024 [email or web address] [facility] [place], [address], [place], [address], 05/09/2024 12:20:17 Medication Orders miconazol e nitrate 2 % topical powder 2024 025 [facility], [address] [place] [address], [id number], 08/16/2024 16:18:43 albuterol sulfate HFA 90 mcg/actua tion aerosol inhaler 2023 024 [facility], [address] [place] [address], [id number], 05/18/2024 10:58:32 Symbicort 160 mcg-4.5 mcg/actua tion HFA aerosol inhaler 2023 024 [facility], [address] [place] [address], [id number], 08/25/2024 17:22:44 Spiriva with HandiHale r 18 mcg and inhalatio n capsules 2023 024 [facility], [address] [place] [address], [id number], 05/18/2024 10:58:33 Patient TargetsNo targets recorded. Patient Instructions Encounter Date Encounter Id Patient Instructions Last Modified By Organization Details Last Modified Time 05/18/2024 [id number] complete PFT w/ post bronchodilator spirometry* - Please call patient to schedule. NPAN [id number] per [facility] website. Not available 07/03/2024 16:32:47 08/16/2024 [id number] diabetic eye exam* ATHENAFAX Not availa ble 08/17/2024 07:40:34 diabetic foot exam* - Can be done at her next visit. ATHENAFAX Not available 08/17/2024 07:36:09 Follow up in 3 months Obtain labs Tests: Complete mammogram Referral: Diabetic eye exam-[facility] Recommend: Tetanus vaccine Shingles vaccine [email or web address] Not available 08/16/2024 15:34:25 08/30/2024 [id number] TAKE DICYCLOMINE NEEDED . [email or web address] Not available 08/30/2024 12:10:44 PT WITH TANIYA. S/P NORMAL COLON . PT IS ON IV FE . STILL HAVE LOW NORMAL VALUES WITH SYMPTOMS. RECOMMEND AN EGD AND SBCS. Not available 08/30/2024 12:10:32 Reason for Referral Physical Therapist Referral for Pain of bilateral knee joints please contact patient to schedule Referring Physician: Cr Molina, Orthopedic Surgery, Encounter Date: 05/08/2024 Results Created Date Observation Date Name Description Value Unit Range Abnormal Flag Note LastModifiedBy Organization Detail LastModifiedTime 05/08/20 24 XR, knee No observ ation record ed. [email or web address] [facility] [place] [address] [facility], [place], [address], 05/08/2024 12:21:03 05/29/20 24 XR, foot, 3 or more view No observ ation record ed. [email or web address] [facility] [address], [address], [place], [address], 05/29/2024 10:29:35 05/29/20 24 XR, foot, 3 or more view No observ ation record ed. [email or web address] [facility] [address], [address], [place], [address], 05/29/2024 10:29:57 Result Notes None recorded. Problems Name Problem SNOMED Code Status Onset Date Resolution Date Notes Provider Name and Address Organization Details Recorded Time Bilateral plantar fasciitis 2848861158859 9108 Active 2020 Not Available [facility] 3 02:34:00 Plantar fascial fibromatos is 32768465 Active Not Available [facility] 3 02:34:00 Hyperchole sterolemia 82960565 Active 2020 Not Available [facility] 3 02:34:00 Chronic obstructiv e pulmonary disease 78581417 Active 2020 Lita Young APRN [address], [place] [address], [place], [address] , [employer] 5 15:24:29 History of pulmonary embolus 321719417 Active 2020 Not Available [facility] 3 02:34:00 Heartburn 04545890 Active 2020 Not Available [facility] 3 02:34:00 Asthma 562646547 Active 2020 Lita Young APRN [address], [place] [address], [place], [address] , [employer] 5 15:23:48 Steatosis of liver 967715733 Active 2020 Lita Young APRN [address], [facility] [address], [place], [address] , [employer] 5 15:10:35 Fibromyalg ia 242826617 Active 2020 Lita Young APRN [address], [facility] [address], [place], [address] , [employer] 5 15:25:05 Headache 71939216 Active 2016 Lita Young APRN [address], [facility] [address], [place], [address] , [employer] 5 15:10:35 Gastroesop hageal reflux disease without esophagiti s 410261995 Active 2021 Lita Young APRN [address], [address], [place], [address] , [employer] [facility] 5 15:25:12 Pain in left foot 2386355695432 07 Active 2020 Not Available [facility] 3 02:34:01 Peroneal tendinitis of left lower limb 8418295573939 07 Active 2020 Not Available [facility] 3 02:34:01 Depressive disorder 00802814 Active 2022 Lita Young APRN [address], [address], [place], [address] , [employer] 5 15:10:36 Disorder of eye 811349319 Active 2020 Not Available [facility] 3 02:34:01 Arthritis 6043702 Active 2020 Lita Young APRN [address], [address], [place], [address] , [employer] 5 15:23:54 Osteoarthr itis 306319365 Active 2021 Lita Young APRN [address], [address], [place], [address] , [employer] 5 15:26:54 Sleep disorder 46586837 Active 2020 Not Available [facility] 3 02:34:01 Dizziness 590276300 Active 2020 Not Available [employer] 3 02:34:01 Exostosis 139089335 Active Not Available [facility] 3 02:34:01 Congestive heart failure 43133129 Active 2017 Lita Young APRN [address], [address], [place], [address] , [employer] 5 15:24:59 Pain of bilateral knee joints 7713257417996 04 Active 2021 Lita Young APRN [address], [facility] [address], [place], [address] , [facility] 5 15:10:36 Heart disease 35712490 Active 2020 Lita Young APRN [address], [facility] [address], [place], [address] , [facility] 5 15:25:34 Nicotine dependence 46655393 Active 2020 Not Available [facility] 3 02:34:02 Diarrhea 82513510 Active 2021 Not Available [facility] 3 02:34:02 Iron deficiency anemia 80697797 Active 2020 Lita Young APRN [address], [facility] [address], [place], [address] , [facility] 5 15:25:48 Plantar fasciitis of left foot 0082127894550 9101 Active 2022 Rick Celis DPM [address] [facility], [place] [address], [place], [address] , [facility] 3 11:55:42 Porokerato sis 788286755 Active 2022 Rick Celis DPM [address] [facility], [place] [address], [place], [address] , [facility] 3 14:10:36 Pain of right knee joint 5697349660575 00 Active 2022 JONATHAN Boone null, [place] [facility] 3 12:27:36 Pain of left knee joint 8110305928904 07 Active 2022 JONATHAN Boone null, [facility] 3 12:27:47 Pain in right hip joint 7330809119060 02 Active 2022 Michelle Leach CMA null, [place] [facility] 3 12:36:56 Pain of left hip joint 0201537804082 00 Active 2022 Michelle Leach, HOISTMAN null, [employer] [facility] [employer] [facility] 3 16:15:07 Low back pain 536158801 Active 2022 Debbie Viet, RMA null, [facility] 3 12:21:32 Chronic diarrhea 365318479 Active 2023 Lita Young APRN [address], [address], [place], [address] , [employer] [facility] [employer] [facility] [employer] 5 15:24:40 Obesity 913973774 Active 2022 Lita Young APRN [address], [address], [place], [address] , [employer] [employer] [facility] [employer] 5 15:13:06 Localized, primary osteoarthr itis of the ankle and/or foot 576046410 Active 2023 Rick Celis DPM [address], [address], [place], [address] , [employer] [facility] [employer] [facility] [employer] 4 13:56:29 Metatarsal hernan 98616824 Active 2023 Rick Celis DPM [address], [address], [place], [address] , [employer] [employer] [facility] 4 13:56:46 Moderate persistent asthma 294433534 Active 2023 Jax Mixon MD [address], [address], [place], [address] , [employer] [facility] [employer] [facility] 4 10:38:37 Edema of lower extremity 183429733 Active 2017 Lita Young APRN [address], [address], [place], [address] , [facility] [facility] 5 15:10:34 Pharyngeal dryness 903742302 Active 2020 Lita Young APRN [address], [address], [place], [address] , [place] [facility] [employer] [facility] 5 15:10:34 Acute bronchitis 68029374 Active 2017 Lita Young APRN [address], [address], [place], [address] , [place] [facility] 5 15:10:34 Perception AND/OR perception disturbanc e 128975522 Active 2017 Lita Young APRN [address], [address], [place], [address] , [place] [facility] [employer] [facility] 5 15:10:34 Cellulitis of right forearm 5404637308921 9109 Active 2022 Lita Young APRN [address], [address], [place], [address] , [employer] [employer] [facility] 5 15:10:34 Irritable bowel syndrome 58531955 Active 2018 DON [address], [address], [place], [address] , [employer] [facility] [employer] [facility] 5 15:26:11 Pain in left thumb 2347296420698 100 Active 2020 Lita Young APRN [address], [address], [place], [address] , [facility] [employer] [facility] 5 15:10:34 Bilateral disorder of eardrums 2674954633476 100 Active 2022 Lita Young APRN [address], [address], [place], [address] , [facility] 5 15:10:34 Tobacco user 585127256 Active Lita Young APRN [address], [address], [place], [address] , [place] [facility] 5 15:10:34 Cyst of left ovary 4435990594824 9108 Active 2016 Lita Young APRN [address], [address], [place], [address] , [place] [facility] 5 15:10:35 Pain in bilateral lower legs 0870272776696 9106 Active 2019 Lita Young APRN [address], [address], [place], [address] , [place] [facility] 5 15:10:35 Diarrheal disorder 404743184 Active 2023 Lita Young APRN [address], [address], [place], [address] , [place] [facility] 5 15:10:35 Hearing loss 72606075 Active 2022 Lita Young APRN [address], [address], [place], [address] , [place] [facility] 5 15:10:35 Pain in both feet 8322946769535 9102 Active 2023 Lita Young APRN [address], [address], [place], [address] , [place] [facility] 5 15:10:35 Bilateral tendinitis of hips 8970023743898 9103 Active 2021 Lita Young APRN [address], [address], [place], [address] , [place] [facility] 5 15:10:35 Acute sinusitis 08905411 Active 2016 Lita Young APRN [address], [address], [place], [address] , [place] [facility] 5 15:10:35 Pain of left shoulder joint 1051644706008 9109 Active 2019 Lita Young APRN [address], [address], [place], [address] , [place] [facility] 5 15:10:35 Abnormal weight gain 243552219 Active 2023 Lita Young APRN [address], [address], [place], [address] , [employer] [facility] 5 15:10:35 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 6729625219783 Active 2016 Ltia Young APRN [address], [address], [place], [address] , [employer] [facility] 5 15:25:26 Moderate recurrent major depression 02124349 Active 2022 Lita Young APRN [address], [address], [place], [address] , [employer] [facility] 5 15:26:31 Recurrent major depressive episodes, moderate 394929457 Active 2019 Lita Young APRN [address], [address], [place], [address] , [employer] [facility] 5 15:10:35 Insomnia 274602837 Active Lita Young APRN [address], [address], [place], [address] , [employer] [facility] [employer] [facility] 5 15:25:52 Acute left otitis media 684479674 Active 2019 Lita Young APRN [address], [address], [place], [address] , [employer] [facility] [employer] [facility] 5 15:10:35 Plantar fasciitis 645277450 Active Lita Young APRN [address], [address], [place], [address] , [employer] [facility] 5 15:10:35 Peripheral venous insufficie ncy 59200555 Active 2020 Lita Young APRN [address], [address], [place], [address] , [employer] [facility] [employer] [facility] 5 15:27:04 Disorder of tympanic membrane [id number] Active 2022 Lita Young APRN [address], [address], [place], [address] , [employer] [place] [employer] [facility] [employer] 5 15:10:35 Sciatica 83716443 Active Lita Young APRN [address], [place], [address] , [employer] [facility] 5 15:27:23 Pneumonia 480520431 Active 2017 Lita Young APRN [address], [address], [place], [address] , [employer] [facility] 5 15:10:35 Gastroesop hageal reflux disease 196872116 Active 2016 Lita Young APRN [address], [address], [place], [address] , [employer] [facility] 5 15:10:35 Thyroid nodule 808763248 Active 2022 Lita Young APRN [address], [place], [address] , [employer] [facility] 5 15:27:35 Morbid obesity 046622751 Active 2022 Lita Young APRN [address], [address], [place], [address] , [employer] [facility] 5 15:26:43 Labyrinthi tis 31604870 Active 2018 Lita Young APRN [address], [address], [place], [address] , [employer] [facility] 5 15:10:35 Poor short-term memory 615800382 Active 2019 Lita Young APRN [address], [place], [address] , [employer] [facility] 5 15:27:09 Hand cramps 149868765 Active 2021 Lita Young APRN [address], [address], [place], [address] , [email or web address] [place] [employer] [facility] 5 15:10:35 Tremor 52002348 Active 2023 Lita Young APRN [address], [address], [place], [address] , [place] [facility] 5 15:10:35 Edema 870625010 Active 2018 Lita Young APRN [address], [address], [place], [address] , [place] [facility] 5 15:10:35 Chest discomfort 413043136 Active Lita Young APRN [address], [place], [address] , [place] [facility] 5 15:10:35 Normal grief reaction 859572618 Active 2019 Lita Young APRN [address], [place], [address] , [place] [facility] 5 15:10:35 Severe recurrent major depression with psychotic features 64412170 Active 2023 Lita Young APRN [address], [place], [address] , [email or web address] [place] [facility] 5 15:10:35 Tear of medial meniscus of knee 203202742 Active 2021 Lita Young APRN [address], [place], [address] , [email or web address] [place] [facility] 5 15:10:35 Acute sciatica 743971313 Active 2017 DON [address], [place], [address] , [email or web address] [place] [facility] 5 15:10:35 Vaginitis 35872469 Active 2016 Lita Young APRN [address], [address], [place], [address] , [place] [facility] 5 15:10:35 Acute otitis media 3604815 Active 2016 Lita Young APRN [address], [place], [address] , [place] [facility] [employer] [facility] 5 15:13:06 Restless legs 15314237 Active 2018 Lita Young APRN [address], [place], [address] , [employer] [facility] [employer] [facility] 5 15:27:16 Hyperthyro idism 94680402 Active Lita Young APRN [address], [place], [address] , [employer] [facility] [employer] [facility] 5 15:25:57 Vitamin D deficiency 28925150 Active 2021 Lita Young APRN [address], [place], [address] , [employer] [facility] [employer] [facility] 5 15:10:36 Goiter 8002345 Active 2020 Lita Young APRN [address], [place], [address] , [employer] [facility] 5 15:25:19 Hypertensi ve disorder 20552862 Active Lita Young APRN [address], [place], [address] , [employer] [facility] 5 15:26:15 Hematochez ia 133082912 Active 2016 Lita Young APRN [address], [place], [address] , [employer] [facility] [employer] [facility] 5 15:10:36 Dysphagia 22065569 Active Lita Young APRN [address], [place], [address] , [employer] [facility] [employer] [facility] 5 15:10:36 Excessive caffeine intake [id number] 09 Active 2023 Lita Young APRN [address], [place], [address] , [employer] [facility] [employer] [facility] 5 15:10:36 Serum vitamin B12 borderline low 525443805 Active 2020 Lita Young APRN [address], [place], [address] , [email or web address] [place] [employer] [facility] 5 15:10:36 Cellulitis of lower limb 023882852 Active 2018 Lita Young APRN [address], [place], [address] , [email or web address] [place] [employer] [facility] 5 15:10:36 Cramp in lower limb 112508612 Active 2016 Lita Young APRN [address], [place], [address] , [email or web address] [place] [employer] [facility] 5 15:10:36 Spasm 24858606 Active Lita Young APRN [address], [place], [address] , [employer] [facility] 5 15:10:36 Anxiety 16104220 Active Lita Young APRN [address], [place], [address] , [employer] - [employer] [facility] 5 15:24:23 Bradycardi a 78723550 Active 2019 Lita Young APRN [address], [place], [address] , [employer] [facility] 5 15:10:36 Cough 37777224 Active 2022 Lita Young APRN [address], [place], [address] , [employer] [facility] 5 15:10:36 Viral exanthem 30869627 Active 2017 Lita Young APRN [address], [place], [address] , [employer] - [employer] [facility] 5 15:10:36 Candidiasi s of skin 43361321 Active 2017 Lita Young APRN [address], [place], [address] , [place] [facility] [place] [facility] 5 15:10:36 Hyperlipid emia 68738161 Active Lita Young APRN [address], [place], [address] , [place] [facility] [place] [facility] 5 15:26:25 Pulmonary embolism 37780388 Active 2020 Lita Young APRN [address], [place], [address] , [place] [facility] [place] [facility] 5 15:10:36 Allergic rhinitis 30883227 Active 2017 Lita Young APRN [address], [place], [address] , [email or web address] [place] [facility] [place] [facility] 5 15:10:36 Otitis media 31223026 Active Lita Young APRN [address], [place], [address] , [place] [facility] 5 15:10:36 Acute gastroente ritis 11758034 Active 2017 Lita Young APRN [address], [place], [address] , [email or web address] [place] [facility] [place] [facility] 5 15:10:36 Bursitis of elbow 817494423 Active 2018 Lita Young APRN [address], [place], [address] , [place] [facility] [place] [facility] 5 15:10:36 Candidiasi s of mouth 10043204 Active 2018 Lita Young APRN [address], [place], [address] , [place] [facility] [place] [facility] 5 15:10:36 Congestion of nasal sinus 67965190 Active 2022 Lita Young APRN [address], [place], [address] , [place] [facility] [place] [facility] 5 15:10:36 Failure to lose weight 45424282 Active 2019 Lita Young [employer] [address], [place], [address] , [employer] [facility] 5 15:10:36 Fatigue 25350041 Active 2016 Lita Young [employer] [address], [place], [address] , [employer] [facility] 5 15:10:36 Tobacco dependence syndrome 77695500 Active 2022 Lita Hannah [employer] [address], [place], [address] , [employer] [facility] 5 15:10:36 Uterine leiomyoma 07675149 Active Lita Nancegilda [employer] [address], [place], [address] , [employer] [facility] 5 15:27:51 Type 2 diabetes mellitus 97281108 Active 2024 Lita Hannah [employer] [address], [place], [address] , [employer] [facility] 5 15:29:41 Notes:Past Medical History: Migraine headaches Bilateral hearing loss/tinnitus Rhinitis to british thistle and marshelder IgE 125 IU/mL Eosinophils 130/uL Nicotine dependence Alpha-1 antitrypsin PiMM 184 mg% Methacholine (+) mild persistent asthma PE 10/2020 c/o [facility] on Xarelto Mild TR HFpEF EF 70% R>L atelectasis Granulomatous disease (chest, liver, spleen), Obesity LILLIAN Hyperlipidemia Hepatic steatosis RLS Procedure History: Rught ear repair surgery 1985 BTL 1996 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 Please review these documents and add these problems to the patient's chart manually as needed. Problem Notes None recorded. Procedures Surgical History Date Name Laterality Status Provider Name and Address Organization Details Recorded Time 3 Plantar Fascia Injection Left Foot completed iRck Celis DPM [address], [place], [address], [place] [employer] 10/20/2022 11:55:35 3 Callus Debridement 2-4 completed Rick Celis DPM [address], [place], [address], [place] [facility] [employer] [facility] 10/20/2022 14:10:29 Imaging Results Imaging Date Name Status LastModified by [facility] Details LastModified Time 05/08/2024 XR, knee completed [email or web address] [facility] [address], [place], [address], 05/08/2024 12:21:03 05/29/2024 XR, foot, 3 or more view completed [email or web address] [place] [address], [place], [address], 05/29/2024 10:29:35 05/29/2024 XR, foot, 3 or more view completed [email or web address] [place] [address], [place], [address], 05/29/2024 10:29:57 Procedure Notes None recorded. Medical Equipment None Reported. Allergies No known drug allergies Medications Name Sig Start Date Stop Date Status Note LastModified by Organization Details LastModified Time lotrimin daily prevention powder 3oz APPLY TO THE AFFECTED AREA(S) TWICE DAILY EVERY MORNING & EVENING active Not Available Not Available No t Available losartan 50 mg tablet Take 1 tablet by mouth once daily 12/26 completed Not Available Not Available Not Available quetiapine 25 mg tablet TAKE ONE TABLET EVERY NIGHT AT BEDTIME 08/16 completed Not Available Not Available Not Available fluoxetine 40 mg capsule TAKE ONE CAPSULE BY MOUTH EVERY MORNING - TOTAL DOSE IS 60MG active Not Available Not Available No t Available cyclobenzap rine 10 mg tablet TAKE ONE TABLET BY MOUTH AT BEDTIME FOR 30 DAYS 05/18 completed Not Available Not Available Not Available Anti-Diarrh eal (loperamide ) 2 mg tablet TAKE TWO CAPSULES BY MOUTH AFTER FIRST STOOL, THEN ONE AFTER EACH STOOL. MAX OF SIX CAPSULES DAILY active Not Available Not Available No t Available furosemide 40 mg tablet TAKE ON TABLET BY MOUTH ON Wednesday AND WEDNESDAY AND TAKE ONE AND ONE HALF TABLET ON Wednesday AND 08/16 completed Not Available Not Available Not Available buspirone 5 mg tablet TAKE 1 TABLET BY MOUTH EVERY 12 HOURS 06/17 completed Not Available Not Available Not Available terbinafine HCl 1 % topical cream APPLY TO THE AFFECTED AND SURROUNDI NG AREAS OF SKIN BY TOPICAL ROUTE twice DAILY 07/28 completed Not Available Not Available Not Available bupropion HCl SR 150 mg tablet,12 hr sustained-r elease 12/09 completed Not Available Not Available Not Available promethazin e-DM 6.25 mg-15 mg/5 mL oral syrup TAKE 5ML BY MOUTH THREE TIMES DAILY NEEDED FOR 10 DAYS 04/26 completed Not Available Not Available Not Available nystatin 100,000 unit/mL oral suspension TAKE 6ML BY MOUTH FOUR TIMES DAILY active Not Available Not Available No t Available prednisone 10 mg tablet Take 2 tabs PO twice a day for 2 days; 1 tab twice a day for 5 days; half a tab twice a day for 2 days; half a tab for 1 day 08/14 completed Not Available Not Available Not Available gabapentin 600 mg tablet TAKE ONE TABLET BY MOUTH THREE TIMES DAILY FOR PAIN MANAGEMEN T 01/06 completed Not Available Not Available Not Available atorvastati n 20 mg tablet TAKE ONE TABLET BY MOUTH AT BEDTIME TO LOWER CHOLESTER OL 01/06 completed Not Available Not Available Not Available ropinirole 1 mg tablet TAKE THREE TABLETS BY MOUTH EVERY NIGHT AT BEDTIME FOR RESTLESS LEGS active Not Available Not Available No t Available donepezil 5 mg tablet TAKE 1 TABLET(S) EVERY DAY BY ORAL ROUTE AT BEDTIME 06/17 completed Not Available Not Available Not Available albuterol sulfate 2.5 mg/3 mL (0.083 %) solution for nebulizatio n INHALE 3ML VIA NEBULIZER THREE TIMES DAILY FOR BREATHING 01/06 completed Not Available Not Available Not Available evening primrose oil 500 mg capsule Take 1 capsule every day by oral route. 12/03 completed Not Available Not Available Not Available trazodone 50 mg tablet TAKE ONE TABLET BY MOUTH AT BEDTIME NEEDED FOR SLEEP, MAY take two occassion ally 05/08 completed Not Available Not Available Not Available azithromyci n 250 mg tablet TAKE 2 TABLETS (500 MG) BY ORAL ROUTE ONCE DAILY FOR 1 DAY THEN 1 TABLET (250 MG) BY ORAL ROUTE ONCE DAILY FOR 4 DAYS 04/30 completed Not Available Not Available Not Available pravastatin 40 mg tablet TAKE ONE TABLET BY MOUTH ONCE DAILY WITH SUPPER 03/25 completed Not Available Not Available Not Available ibuprofen 800 mg tablet TAKE ONE TABLET BY MOUTH THREE TIMES DAILY WITH FOOD FOR pain managemen t 04/26 completed Not Available Not Available Not Available tizanidine 4 mg tablet TAKE 1 TO 2 TABLETS BY MOUTH THREE TIMES A DAY, MORNING, MIDDAY AND BEDTIME NEEDED FOR MUSCLE SPASMS active Not Available Not Available No t Available fluconazole 150 mg tablet TAKE ONE TABLET EVERY 72 HOURS BY MOUTH FOR 9 DAYS 09/17 completed Not Available Not Available Not Available valacyclovi r 1 gram tablet TK 1 T PO D 05/18 completed Not Available Not Available Not Available sumatriptan 100 mg tablet TAKE 1 TABLET AT ONSET OF HEADACHE MAY REPEAT IN 2 HOURS. NO MORE THAN 2 TABLETS IN 24 HOURS 2024 active Not Available Not Available Not Avai lable hydrocodone 5 mg-acetamin ophen 325 mg tablet TAKE 2 TABLETS BY MOUTH 3 TIMES A DAY NEEDED 05/08 completed Not Available Not Available Not Available Nystop 100,000 unit/gram topical powder APPLY TO AFFECTED AREA BY TOPICAL ROUTE TWICE DAILY 01/06 completed Not Available Not Available Not Available fluconazole 200 mg tablet TAKE ONE TABLET NOW, ONE 72 HOURS LATER, THEN ANOTHER 72 HOURS AFTER SECOND DOSE 04/26 completed Not Available Not Available Not Available donepezil 10 mg tablet TAKE ONE TABLET BY MOUTH EVERY EVENING 10/24 completed Not Available Not Available Not Available ondansetron HCl 4 mg tablet Take 1 tablet 3 times a day by oral route as needed for 10 days. 10/01 completed Not Available Not Available Not Available prednisone 20 mg tablet TAKE 2 TABLETS BY MOUTH DAILY FOR 5 DAYS 08/16 completed Not Available Not Available Not Available clonazepam 0.5 mg tablet TAKE ONE TABLET BY MOUTH TWICE DAILY NEEDED FOR 30 DAYS 07/22 completed Not Available Not Available Not Available clonazepam 1 mg tablet TAKE ONE TABLET BY MOUTH TWICE DAILY 10/24 completed Not Available Not Available Not Available miconazole nitrate 2 % topical powder APPLY TO THE AFFECTED AREA(S) BY TOPICAL ROUTE 2 TIMES PER DAY IN THEMORNIN G AND EVENING 2024 active Not Available Not Available Not Avai lable cyanocobala min (vit B-12) 1,000 mcg tablet Take 1 tablet twice a day by oral route with meals for 30 days. 12/26 completed Not Available Not Available Not Available diphenoxyla te-atropine 2.5 mg-0.025 mg tablet TAKE ONE TABLET BY MOUTH THREE TIMES A DAY, MORNING, MIDDAY AND BEDTIME NEEDED active Not Available Not Available No t Available penicillin V potassium 500 mg tablet Take 1 tablet twice a day by oral route for 10 days. 12/03 completed Not Available Not Available Not Available meclizine 12.5 mg tablet Take 1 tablet 3 times a day by oral route for 30 days. 01/06 completed Not Available Not Available Not Available fexofenadin e 180 mg tablet Take 1 tablet every day by oral route in the morning for 30 days. 07/28 completed Not Available Not Available Not Available amlodipine 5 mg tablet TAKE 1 TABLET BY MOUTH DAILY active Not Available Not Available No t Available acyclovir 400 mg tablet TAKE ONE TABLET BY MOUTH TWICE DAILY FOR INFECTION 05/08 completed Not Available Not Available Not Available ciprofloxac in 500 mg tablet TAKE ONE TABLET DAILY UNTIL ALL TAKEN 01/19 completed Not Available Not Available Not Available sulfamethox azole 800 mg-trimetho prim 160 mg tablet Take 1 tablet every 12 hours by oral route for 7 days. 01/05 completed Not Available Not Available Not Available hydrocodone 10 mg-acetamin ophen 325 mg tablet TAKE ONE TABLET BY MOUTH THREE TIMES DAILY, MORNING, MIDDAY & IN THE EVENING NEEDED FOR PAIN active Not Available Not Available No t Available peg-electro lyte solution 420 gram oral solution USE DIRECTED ON package 08/16 completed Not Available Not Available Not Available omeprazole 40 mg capsule,del ayed release TAKE 1 CAPSULE BY MOUTH EVERY DAY BEFORE MEALS 10/24 completed Not Available Not Available Not Available tramadol 50 mg tablet TAKE ONE TABLET BY MOUTH TWICE DAILY NEEDED FOR 30 DAYS 12/03 completed Not Available Not Available Not Available quetiapine 100 mg tablet TAKE ONE TABLET BY MOUTH EVERY NIGHT AT BEDTIME FOR SLEEP 08/16 completed Not Available Not Available Not Available spironolact one 25 mg tablet Take 1 tablet 3 times a day by oral route as directed for 30 days. 12/08 completed Not Available Not Available Not Available methylpredn isolone acetate 80 mg/mL suspension for injection Take 1 mL by injection route. 01/06 completed Not Available Not Available Not Available terbinafine HCl 250 mg tablet 07/28 completed Not Available Not Available Not Available potassium chloride ER 20 mEq tablet,exte nded release(par t/cryst) TAKE ONE TABLET BY MOUTH EVERY DAY ALONG WITH A FUROSEMID E TABLET A POTASSIUM REPLACEME NT 01/06 completed Not Available Not Available Not Available magnesium oxide 400 mg (241.3 mg magnesium) tablet 06/17 completed Not Available Not Available Not Available methocarbam ol 750 mg tablet TAKE ONE TABLET BY MOUTH THREE TIMES DAILY NEEDED FOR MUSCLE SPASMS 10/24 completed Not Available Not Available Not Available estradiol 1 mg tablet TAKE 1 TABLET BY MOUTH ONCE A DAY FOR HORMONE REPLACEME NT 12/09 completed Not Available Not Available Not Available ropinirole 0.25 mg tablet TAKE UP TO 4 TABLETS AT BEDTIME NEEDED (MAX OF 90 TABLETS IN 30 DAYS PER INSURANCE ) 11/26 completed Not Available Not Available Not Available dicyclomine 20 mg tablet TAKE 1 TABLET BY MOUTH THREE TIMES DAILY NEEDED 06/19 completed Not Available Not Available Not Available OneTouch Ultra Test strips USE TO CHECK BLOOD SUGAR TWICE DAILY EVERY MORNING & EVENING active Not Available Not Available No t Available Kenalog 10 mg/mL suspension for injection In office injection administe red by the provider 04/30 completed [facility]: [id number] Not Available Not Available Not Available baclofen 10 mg tablet Take 1 tablet 3 times a day by oral route as needed for 30 days. 06/02 completed Not Available Not Available Not Available triamcinolo ne acetonide 40 mg/mL suspension for injection Take 1 mL by injection route for 1 day. 03/13 completed Not Available Not Available Not Available hydrocodone 7.5 mg-acetamin ophen 325 mg tablet Take 1 tablet twice a day by oral route as needed for 30 days. 09/03 completed Not Available Not Available Not Available cephalexin 500 mg capsule TAKE 1 CAPSULE BY MOUTH TWICE DAILY 01/19 completed Not Available Not Available Not Available pantoprazol e 40 mg tablet,franck yed release 01/06 completed Not Available Not Available Not Available nortriptyli ne 10 mg capsule TAKE TWO CAPSULES BY MOUTH AT BEDTIME FOR 30 DAYS 12/03 completed Not Available Not Available Not Available mirtazapine 30 mg tablet TAKE 1/2 TABLET BY MOUTH AT BEDTIME FOR SLEEP 01/06 completed Not Available Not Available Not Available fluoxetine 20 mg tablet Take 1 tablet every day by oral route. active Not Available Not Available No t Available triamcinolo ne acetonide 0.1 % topical ointment APPLY A THIN LAYER TO THE AFFECTED AREA(S) BY TOPICAL ROUTE 2 TIMES PER DAY 12/03 completed Not Available Not Available Not Available ropinirole 0.5 mg tablet TAKE 4 TABLET(S) NEEDED BY ORAL ROUTE AT BEDTIME 12/26 completed Not Available Not Available Not Available nystatin 100,000 unit/gram topical cream APPLY TOPICALLY TO AFFECTED AREA TWO TIMES DAILY 10/24 completed Not Available Not Available Not Available ranitidine 150 mg tablet TAKE 1 TABLET BY MOUTH TWICE DAILY BEFORE MEAL(S) TAKE 30 MINUTES BEFORE FOOD 01/05 completed Not Available Not Available Not Available lidocaine 5 % topical patch APPLY 1 PATCH EVERY DAY TO BOTH FEET AND LOWER BACK NEEDED (MAY WEAR UP TO 12 HOURS) 01/06 completed Not Available Not Available Not Available warfarin 5 mg tablet TAKE ONE TABLET BY MOUTH EVERY DAY 01/06 completed Not Available Not Available Not Available nicotine 21 mg/24 hr daily transdermal patch APPLY 1 PATCH TO THE SKIN EVERY MORNING TO HELP QUIT SMOKING 01/06 completed Not Available Not Available Not Available fluoxetine 10 mg capsule Take 1 capsule every day by oral route in the morning for 30 days. 11/26 completed Not Available Not Available Not Available methimazole 5 mg tablet 03/25 completed Not Available Not Available Not Available gabapentin 300 mg capsule TAKE 2 CAPSULES BY MOUTH THREE TIMES DAILY 09/03 completed Not Available Not Available Not Available omeprazole 20 mg capsule,del ayed release TAKE ONE CAPSULE BY MOUTH TWICE DAILY EVERY MORNING & EVENING FOR STOMACH active Not Available Not Available No t Available alcohol swabs USE TO CLEAN THE INJECTION SITE OF INSULIN AND WHEN CHECKING BLOOD SUGAR active Not Available Not Available No t Available pravastatin 20 mg tablet TAKE ONE TABLET BY MOUTH ONCE DAILY 05/18 completed Not Available Not Available Not Available furosemide 20 mg tablet TAKE TWO TABLETS BY MOUTH EVERY DAY FOR BLOOD PRESSURE & FLUID RETENTION active Not Available Not Available No t Available mirtazapine 15 mg tablet TAKE 1/2 TABLET BY MOUTH AT BEDTIME 01/06 completed Not Available Not Available Not Available ergocalcife rol (vitamin D2) 1,250 mcg (50,000 unit) capsule TAKE ONE CAPSULE BY MOUTH EVERY WEEK FOR VITAMIN DEFICIANC Y active Not Available Not Available No t Available lorazepam 1 mg tablet TAKE ONE TABLET BY MOUTH EVERY DAY NEEDED active Not Available Not Available No t Available azelastine 137 mcg (0.1 %) nasal spray SPRAY TWO PUFFS IN EACH NOSTRIL TWICE DAILY 05/08 completed Not Available Not Available Not Available warfarin 1 mg tablet TAKE 4 TABLETS BY MOUTH EVERY DAY 01/06 completed Not Available Not Available Not Available diazepam 10 mg tablet 1 po 15 min before mri , may repeat times one 12/03 completed Not Available Not Available Not Available oxycodone-a cetaminophe n 7.5 mg-325 mg tablet 11/26 completed Not Available Not Available Not Available levofloxaci n 750 mg tablet Take 1 tablet every day by oral route for 14 days. 12/08 completed Not Available Not Available Not Available methylpredn isolone 4 mg tablets in a dose pack Use as directed on package 10/24 completed Not Available Not Available Not Available albuterol sulfate HFA 90 mcg/actuati on aerosol inhaler INHALE ONE PUFF BY MOUTH EVERY 6 HOURS NEEDED FOR BREATHING active Not Available Not Available No t Available methimazole 10 mg tablet Take 1 tablet twice a day by oral route for 30 days. 03/25 completed Not Available Not Available Not Available norethindro ne (contracept kvng) 0.35 mg tablet TAKE ONE TABLET BY MOUTH ONCE DAILY 05/18 completed Not Available Not Available Not Available hydroxyzine HCl 10 mg tablet TAKE TWO TABLETS BY MOUTH THREE TIMES DAILY, MORNING, MIDDAY & IN THE EVENING NEEDED FOR ANXIETY active Not Available Not Available No t Available losartan 100 mg tablet TAKE ONE TABLET BY MOUTH EVERY MORNING FOR BLOOD PRESSURE active Not Available Not Available No t Available fluoxetine 20 mg capsule TAKE ONE CAPSULE BY MOUTH EVERY MORNING - TOTAL DOSE IS 60MG active Not Available Not Available No t Available fluticasone propionate 50 mcg/actuati on nasal spray,suspe nsion INSTILL 2 SPRAYS IN EACH NOSTRIL EVERY DAY FOR ALLERGIES active Not Available Not Available No t Available clotrimazol e 1 % topical cream PRN active Not Available Not Available Not Available doxycycline hyclate 100 mg tablet TAKE 1 TABLET BY MOUTH EVERY DAY 10/24 completed Not Available Not Available Not Available dicyclomine 10 mg capsule TAKE ONE CAPSULE BY MOUTH WITH FOOD FOUR TIMES DAILY 30 minutes BEFORE meals FOR STOMACH active Not Available Not Available No t Available loratadine 10 mg tablet Take 1 tablet every day by oral route for 30 days. 07/28 completed Not Available Not Available Not Available glipizide 5 mg tablet 12/03 completed Not Available Not Available Not Available naproxen 500 mg tablet Take 1 tablet twice a day by oral route with meals for 30 days. 08/14 completed Not Available Not Available Not Available amoxicillin 875 mg-potassiu m clavulanate 125 mg tablet TAKE ONE TABLET BY MOUTH EVERY TWELVE HOURS FOR 5 DAYS FOR INFECTION 01/04 completed Not Available Not Available Not Available hydroxyzine pamoate 25 mg capsule Take 1 capsule 3 times a day by oral route as needed for 30 days. 05/11 completed Not Available Not Available Not Available Promethazin e Dm 6.25 mg-15 mg/5 mL oral syrup Take 5 mL as needed by oral route. active Not Available Not Available No t Available ezetimibe 10 mg tablet TAKE ONE TABLET BY MOUTH EVERY NIGHT AT BEDTIME TO LOWER CHOLESTER OL active Not Available Not Available No t Available coenzyme Q10 100 mg capsule Take 1 capsule twice a day by oral route for 30 days. 06/17 completed Not Available Not Available Not Available clonazepam 0.5 mg disintegrat ing tablet 08/16 completed Not Available Not Available Not Available aripiprazol e 5 mg tablet TAKE ONE TABLET BY MOUTH EVERY DAY EVERY EVENING 10/24 completed Not Available Not Available Not Available bupropion HCl XL 150 mg 24 hr tablet, extended release 02/12 completed Not Available Not Available Not Available metoprolol tartrate 25 mg tablet TAKE 1 TABLET BY MOUTH TWICE DAILY DIRECTED 06/17 completed Not Available Not Available Not Available Spiriva with HandiHaler 18 mcg and inhalation capsules INHALE CONTENTS OF 1 CAPSULE THROUGH HANDIHALE R ONCE DAILY DIRECTED active Not Available Not Available No t Available mirtazapine 7.5 mg tablet TAKE ONE TABLET BY MOUTH EVERY NIGHT AT BEDTIME 05/08 completed Not Available Not Available Not Available nystatin topical active Not Available Not Susannah ilable Not Available aripiprazol e 2 mg tablet TAKE ONE TABLET BY MOUTH EVERY EVENING 01/06 completed Not Available Not Available Not Available ferrous gluconate 324 mg (38 mg iron) tablet TAKE ONE TABLET BY MOUTH TWICE DAILY WITH MEALS FOR IRON REPLACEME NT 05/08 completed Not Available Not Available Not Available Symbicort 160 mcg-4.5 mcg/actuati on HFA aerosol inhaler INHALE TWO PUFFS TWICE DAILY EVERY MORNING & EVENING active Not Available Not Available No t Available Golytely 236 gram-22.74 gram-6.74 gram-5.86 gram oral solution DRECTED 05/08 completed Not Available Not Available Not Available diclofenac 1 % topical gel APPLY 2 GRAMS TOPICALLY TO THE AFFECTED AREA (LUMBAR AREA)BY TOPICAL ROUTE 4 TIMES PER DAY 01/02 completed Not Available Not Available Not Available cholecalcif hilda (vitamin D3) 50 mcg (2,000 unit) capsule Take 1 capsule every day by oral route with meals for 30 days. 01/14 completed Not Available Not Available Not Available vitamin E (dl, acetate) 180 mg (400 unit) capsule Take 1 capsule twice a day by oral route. 12/03 completed Not Available Not Available Not Available Mimvey 1 mg-0.5 mg tablet 08/16 completed Not Available Not Available Not Available ropivacaine (PF) 5 mg/mL (0.5 %) injection solution In office injection administe red by the provider 08/28 completed Not Available Not Available Not Available fluoxetine 60 mg tablet TAKE 1 TABLET BY MOUTH ONCE DAILY IN THE MORNING 09/03 completed Not Available Not Available Not Available Xarelto 15 mg tablet TAKE 1 TABLET BY MOUTH TWICE DAILY 12/26 completed Not Available Not Available Not Available Xarelto 20 mg tablet TAKE 1 TABLET BY MOUTH ONCE DAILY WITH DINNER TO PREVENT BLOOD CLOTS active Not Available Not Available No t Available Aerospan 80 mcg/actuati on HFA aerosol inhaler Inhale 2 puffs twice a day by inhalatio n route for 30 days. 09/13 completed Not Available Not Available Not Available Pennsaid 20 mg/gram/act uation (2 %) topical soln in metered-dos e pump APPLY 2 PUMPS (40 MG) TO THE AFFECTED KNEE(S) BY TOPICAL ROUTE 2 TIMES PER DAY 06/17 completed Not Available Not Available Not Available potassium chloride ER 20 mEq tablet,exte nded release TAKE 1 TABLET BY MOUTH ONCE DAILY TAKE WITH FUROSEMID E 07/28 completed Not Available Not Available Not Available Trulicity 0.75 mg/0.5 mL subcutaneou s pen injector active Not Available Not Available Not Available Rexulti 0.5 mg tablet TAKE ONE TABLET BY MOUTH EVERY NIGHT AT BEDTIME active Not Available Not Available No t Available Narcan 4 mg/actuatio n nasal spray 05/11 completed Not Available Not Available Not Available bupropion HCl 150 mg tablet,12 hr sustained-r elease(smok ing deterrent) Take 1 tablet twice a day by oral route. 12/09 completed Not Available Not Available Not Available Compact Space Chamber USE as directed with inhaler active Not Available Not Available No t Available Imodium A-D 2 mg capsule Two caps after first stool then one after each stool up to six caps daily 2023 active Not Available Not Available Not Avai lable Trelegy Ellipta 100 mcg-62.5 mcg-25 mcg powder for inhalation Inhale 1 puff every day by inhalatio n route as directed for 30 days. 03/14 completed Not Available Not Available Not Available Ozempic 0.25 mg or 0.5 mg (2 mg/1.5 mL) subcutaneou s pen injector INJECT 0.5 MG under the skin every week 01/06 completed Not Available Not Available Not Available OneTouch Ultra2 Meter USE TO CHECK BLOOD SUGAR TWICE DAILY EVERY MORNING & EVENING active Not Available Not Available No t Available OneTouch Delica Plus Lancet 30 gauge USE TO CHECK BLOOD SUGAR TWICE DAILY EVERY MORNING & EVENING active Not Available Not Available No t Available Rybelsus 3 mg tablet Take by oral route for 30 days. 08/16 completed Not Available Not Available Not Available Trelegy Ellipta 200 mcg-62.5 mcg-25 mcg powder for inhalation Inhale 1 puff every day by inhalatio n route. 01/13 completed Not Available Not Available Not Available Dodex 1,000 mcg/mL injection solution 01/06 completed Not Available Not Available Not Available Ozempic 0.25 mg or 0.5 mg (2 mg/3 mL) subcutaneou s pen injector Inject by subcutane ous route for 28 days. 01/06 completed Not Available Not Available Not Available Vitals Date Recorded Body height Body mass index (BMI) Body weight Provider Name and Address Organization Details Last Updated DateTime 05/08/2024 157.48 cm 45.7 kg/m2 756178.09 g Alley Crenshaw [facility] 05/08/2024 12:15:09 Date Recorded Body height Body mass index (BMI) Body weight Heart rate Respiratory rate Oxygen saturation Oxygen saturation in Arterial blood by Pulse oximetry Systolic blood pressure Diastolic blood pressure Provider Name and Address Organization Details Last Updated DateTime 157.48 cm 45.7 kg/m2 460500. 09 g 87 /min 16 /min 98 % 98 % 140 mm[Hg] 85 mm[Hg] Carmen Isaac [employer] [facility] [employer] 12:05:11 Date Recorded Body height Body temperature Oxygen saturation Oxygen saturation in Arterial blood by Pulse oximetry Heart rate Body mass index (BMI) Body weight Systolic blood pressure Diastolic blood pressure Provider Name and Address Organization Details Last Updated DateTime 4 157.48 cm 97.8 [degF] 98 % 98 % 70 /min 45 kg/m2 565558. 72 g 148 mm[Hg] 78 mm[Hg] Rosalinda Rodriguez CMA [facility] [employer] [facility] 4 10:09:35 Date Recorded Heart rate Respiratory rate Provider N gila and Address Organization Details Last Updated DateTime 05/18/2024 70 /min 15 /min Jax Mixon MD [address] [facility], [facility] [address], [place], [address], [facility] [employer] 05/18/2024 10:29:59 Date Recorded Body height Body mass index (BMI) Body weight Body temperature Heart rate Oxygen saturation Oxygen saturation in Arterial blood by Pulse oximetry Pain severity - 0-10 verbal numeric rating [Score] - Reported Systolic blood pressure Diastolic blood pressure Provider Name and Address Organization Details Last Updated DateTime 5 157.48 cm 43.2 kg/m2 929973. 8 g 97.9 [degF] 95 /min 97 % 97 % 6 110 mm[Hg] 72 mm[Hg] Geeta Negro MA [facility] [employer] 5 14:54:58 Date Recorded Body height Body mass index (BMI) Body weight Heart rate Oxygen saturation Oxygen saturation in Arterial blood by Pulse oximetry Systolic blood pressure Diastolic blood pressure Provider Name and Address Organization Details Last Updated DateTime 5 157.48 cm 44.3 kg/m2 174455. 35 g 68 /min 98 % 98 % 124 mm[Hg] 68 mm[Hg] JONATHAN Freed [facility] [employer] 5 11:02:37 Social History Question Answer Notes LastModified by Organizat ion Details LastModified Time Tobacco Smoking Status Former Smoker Geeta Negro MA null, [facility] [employer] 08/16/2024 15:03:57 What Is Your Level Of Alcohol Consumption? Occasional [id number] Information not available 09/23/2022 What Is Your Level Of Caffeine Consumption? Moderate MIGRATION.[id number] Information not available 09/23/2022 How Much Tobacco Do You Chew? None MIGRATION.75351 [id number] Information not available 09/23/2022 In The 14 Days Before Symptom Onset, Have You Had Close Contact With A Laboratory-confi rmed COVID-19 While That Case Was Ill? No MIGRATION.39591 [id number] Information not available 09/23/2022 In The 14 Days Before Symptom Onset, Have You Had Close Contact With A Person Who Is Under Investigation For COVID-19 While That Person Was Ill? No MIGRATION.[id number] Information not available 09/23/2022 Are You Currently Employed? No Information not available 08/16/2024 What Type Of Diet Are You Following? REGULAR MIGRATION.03950 [id number] Information not available 09/23/2022 Which Illicit Or Recreational Drugs Have You Used? None MIGRATION.99689 [id number] Information not available 09/23/2022 Do You Or Have You Ever Used E-cigarettes Or Vape? Current User Of Electronic Cigarettes Information not available 08/16/2024 Do You Have An Electrostatic Air Filter? No MIGRATION.82392 [id number] Information not available 09/23/2022 Have There Been Any Changes To Your Family Or Social Situation? No Information not available 08/16/2024 When Did You Quit Smoking? 1-5yearssincelastc igarette Information not available 08/16/2024 Do You Have A Humidifier? No MIGRATION.71939 50382 Information not available 09/23/2022 Do You Use Insect Repellent Routinely? No Information not available 08/16/2024 Where Do You Live? [facility] Information not available 08/16/2024 Do You Have Moisture Problems In Your Home? No MIGRATION.69419 14040 Information not available 09/23/2022 What Was The Date Of Your Most Recent Tobacco Screening? 08/16/2024 Information not available 08/16/2024 How Many Children Do You Have? 5 MIGRATION.03808 78496 Information not available 09/23/2022 Do You Have Any Pets? Yes MIGRATION.17773 63912 Information not available 09/23/2022 What Is Your Relationship Status? Information not available 08/16/2024 Do You Use Your Seat Belt Or Car Seat Routinely? Yes Information not available 08/16/2024 Do You Have Smoke And Carbon Monoxide Detectors In Your Home? Yes MIGRATION.60523 64600 Information not available 09/23/2022 At What Age Did You Start Smoking Tobacco? 11 MIGRATION.41025 64098 Information not available 09/23/2022 Are You Passively Exposed To Smoke? No MIGRATION.09211 07866 Information not available 09/23/2022 Do You Or Have You Ever Used Smokeless Tobacco? Never Used Smokeless Tobacco MIGRATION.48318 33600 Information not available 09/23/2022 Are There Any Smokers In Your House? No Information not available 08/16/2024 How Much Tobacco Do You Smoke? 0.5 PPD MIGRATION.42724 18730 Information not available 09/23/2022 Do You Feel Stressed (tense, Restless, Nervous, Or Anxious, Or Unable To Sleep At Night)? [id number] Information not available 08/16/2024 Do You Use Any Illicit Or Recreational Drugs? No Information not available 08/16/2024 Do You Use Sunscreen Routinely? No MIGRATION.05107 68710 Information not available 09/23/2022 Have You Recently Traveled Abroad? No MIGRATION.42640 32687 Information not available 09/23/2022 Sex: Female Functional Status Question Answer Note LastModified by Organizat ion Details LastModified Time What is your exercise level? Occasional [id number] Information not available 09/23/2022 Mental Status None recorded. Family History Relationship Description Onset Age of this Age Resolved Age Notes LastModified by Organization Details LastModified Time Unspecified Relation Diabetes mellitus GRANDM OTHER [id number] Not available 09/23/2022 02:31:01 Unspecified Relation Arthritis AUNTS MIGRATION.[id number] Not available 09/23/2022 02:31:01 Unspecified Relation Hypertensive disorder MOTHER S SIDE MIGRATION.890 [id number] Not available 09/23/2022 02:31:01 Brother Blood coagulation disorder MIGRATION.[id number] Not available 09/23/2022 02:31:01 Notes:STROKE-MOTHER, CANCER- COUSINS AND AUNT and brother Medical History Condition Response CHEST XRAY N NERVE DISEASE N BLINDNESS N OTHER # 1 N POLIO N LUNG DISEASE/DISORDER Y RADIATION / CHEMOTHERAPY N COPD Y Other # 2 N BLOOD DISEASES N SURGERY N EAR OR HEARING PROBLEMS N FEMALE PROBLEMS / INFECTIONS N DEPRESSION (INCLUDING POST ) Y BOWEL PROBLEMS N STROKE/TIA N CHEST CT N ULCERS N RENAL INSUFFICIENCY N BENIGN PROSTATIC HYPERPLASIA N TB SKIN TEST N OBESITY N GERD/NAUSEA N EXCESSIVE PERSPIRATION N ANEURYSM N URINARY/BLADDER/KIDNEY PROBLEMS N CORONARY ARTERY DISEASE (CAD) N USE OF BLOOD THINNERS Y SKIN PROBLEMS N EMPHYSEMA N SHORTNESS OF BREATH N GASTROINTESTINAL DISORDER N PARATHYROID DISEASE N PERIPHERAL VASCULAR DISEASE N GASTROINTESTINAL BLEEDING N BLOOD CLOTS Y ASTHMA Y CONCUSSION OR SPINAL TRAUMA N VARICOSITIES N GI PROBLEMS N CHF N AIDS/HIV N HYPERTENSION Y ANXIETY DISORDER N BLOOD TRANSFUSION N ANEMIA/BLOOD DISORDER Y BRONCHITIS Y TUBERCULOSIS N GLAUCOMA N SLEEP APNEA N ALLERGIES/HAYFEVER N INFECTIOUS DISEASE N HEART ARRHYTHMIA N PROSTATE N INSOMNIA N HIGH CHOLESTEROL / HYPERLIPIDEMIA Y HYPERTHYROIDISM N NEUROLOGICAL PROBLEMS N EDEMA N HYPOTHYROIDISM N CAROTID BLOCKAGE N BACK / NECK PROBLEMS N HAVE YOU BEEN HOSPITALIZ[facility] IN THE PAST YEAR ? N ATHEROSCLEROSIS N BREAST PROBLEMS N HERNIATED DISC N DIALYSIS N FIBROMYALGIA Y OSTEOPOROSIS N ARTHRITIS Y NO SIGNIFICANT PAST MEDICAL HISTORY N DIABETES, TYPE N SEASONAL ALLERGIES N HEARTBURN / REFLUX Y PLEURISY N ADD/ADHD N Bronchoscopy N HEPATITIS / LIVER DISEASE N PULMONARY DISEASE N GOUT N SLEEP DISORDER Y ALZHEIMER'S DISEASE N FATIGUE N DEMENTIA N HERPES Y RETINOPATHY N SEIZURES/EPILEPSY N HEADACHES/MIGRAINES Y SLEEP STUDY N VASCULAR DISEASE N DIZZINESS Y HEAD TRAUMA OR INJURY N HEART DISEASE/HEART PROBLEMS Y MULTIPLE SCLEROSIS N PULMONARY FUNCTION TEST N CANCER: SPECIFY N CARDIAC ARRHYTHMIA N ANESTHESIA COMPLICATIONS N PNEUMONIA N ATRIAL FIBRILLATION N PULMONARY EMBOLISM N AUTOIMMUNE DISEASE N Gynecological History Statement/Question Response How many live births 3 Date of Last Colonoscopy Date of Last Mammogram Date of LMP Most Recent Bone Density Date of Last Pap Current Control Method Tubal Ligat ion Obstetrics History GPAL:G 3 P 3 0 0 3 Type Value Multiple Births 0 Full Term 3 Induced 0 Spontaneous 0 Premature 0 Living 3 Ectopics 0 Total 3 Immunizations Vaccine Type Date Status Note Provider Niranjan jansen and Address Organization Details Recorded Time Influenza, split virus, quadrivalent, preservative 7 completed Lita Young, [employer] [address] [facility], [facility] [address], [place], [address], [facility] [employer] 08/16/2024 15:13:26 Influenza, split virus, quadrivalent, preservative 5 completed Lita Young APRN [address], [place], [address], [facility] [facility] [employer] [facility] 08/16/2024 15:13:26 Influenza, split virus, quadrivalent, preservative 9 completed Lita Young APRN [address], [place], [address], [employer] [facility] [employer] [facility] 08/16/2024 15:13:26 Influenza, split virus, quadrivalent, preservative 6 completed Lita Young APRN [address], [place], [address], [employer] [facility] [employer] [facility] 08/16/2024 15:13:26 Influenza, split virus, quadrivalent, preservative 1 completed Lita Young APRN [address], [place], [address], [employer] [facility] [employer] [facility] 08/16/2024 15:13:26 COVID-19, mRNA, LNP-S, PF, 100 mcg/0.5mL dose or 50 mcg/0.25mL dose 2 completed Lita Young APRN [address], [place], [address], [employer] [facility] [employer] [facility] 08/16/2024 15:13:26 COVID-19, mRNA, LNP-S, PF, 100 mcg/0.5mL dose or 50 mcg/0.25mL dose 2 completed Lita Young APRN [address], [place], [address], [employer] [facility] [employer] [facility] 08/16/2024 15:13:26 COVID-19, mRNA, LNP-S, PF, 100 mcg/0.5mL dose or 50 mcg/0.25mL dose 1 completed Lita Young APRN [address], [place], [address], [facility] 08/16/2024 15:13:26 Tdap 4 completed Lita Young APRN [address] [facility], [facility] [address], [place], [address], [facility] 08/16/2024 15:13:26 Influenza, split virus, trivalent, preservative 4 completed Lita Young APRN [address] [facility], [facility] [address], [place], [address], [facility] 08/16/2024 15:13:26 Influenza, split virus, trivalent, PF 4 completed Lita Young APRN [address] [facility], [place] [address], [place], [address], [facility] 08/16/2024 15:11:26 Past Encounters Encounter ID Performer Location Encounter Start Date Encounter Closed Date Diagnosis/Indication Diagnosis SNOMED-CT Code Diagnosis ICD10 Code Diagnosis Note [id number] [facility] [address] [place] [address] 11/26/2020 00:00:00 11/26/2020 16:37:23 [id number] [facility] [address] [place] [address] 01/06/2021 00:00:00 01/06/2021 08:56:35 [id number] [facility] [place] [address] [facility], [facility] [address] [place] [address] 03/14/2021 00:00:00 03/14/2021 13:26:13 [id number] [facility] [address] [place] [address] [address] [place] [address] 06/11/2021 00:00:00 06/11/2021 12:58:50 [id number] [facility] [place] [address] [place] [address] 03/19/2022 00:00:00 03/19/2022 13:15:02 [id number] [facility] [place] [address] [place] [address] 04/30/2022 00:00:00 04/30/2022 12:32:08 [id number] _ATHENA_M IGRATION_ DEFAULT_1 _1 , 06/24/2022 00:00:00 06/24/2022 13:46:37 [id number] _ATHENA_M IGRATION_ DEFAULT_1 _1 , 07/29/2022 00:00:00 07/29/2022 12:42:32 [id number] [facility] [place] [address] [facility], [facility] [address] [place] [address] 09/01/2022 00:00:00 09/01/2022 15:16:10 [id number] Rick Celis DPM [facility] [address], [facility] [address] [place] [address] 10/06/2022 15:42:35 10/21/2022 11:09:23 Porokeratosis 487504316 Q82.8 Debrided without incidentCo ntinue use Amlactin lotionOffl oadRecomme nd supportive shoe gearFollow -up as needed [id number] Rick Celis DPM [facility] [address], [facility] [address] [place] [address] 10/20/2022 11:30:06 10/21/2022 11:56:27 Pain in left foot 2065551051 38965 M79.672 As above Plantar fa sciitis of left foot 5937786184 0962892 M72.2 educated on conditionS tretching and icing instructio ns reviewedSt eroid injection left plantar heel 10/20/2022 follow-up 1 month if not improved will order physical therapy [id number] DAVINA Pineda [facility] [address] [address] 10/22/2022 12:23:43 10/22/2022 13:05:18 Pain of left knee joint 8178033669 70453 M25.562 Pain in ri ght hip joint 9137636525 80963 M25.551 [id number] Abimael Dobbins MD [facility]_[address] [address] 11/05/2022 10:02:22 11/05/2022 11:14:13 Pain of left hip joint 6008191864 13964 M25.552 [id number] Rick Celis DPM [facility] [place] [address] [facility], [facility] [address] [place] [address] 11/17/2022 17:27:44 11/18/2022 11:23:20 Plantar fasciitis of left foot 8262795834 5556572 M72.2 Continue at home physical therapy to prevent recurrentc ontinue supportive shoe gearfollow -up as needed [id number] Abimael Dobbins MD [facility] [address] 12/17/2022 12:12:46 12/22/2022 10:05:30 Low back pain 116841162 M54.50 [id number] Stephanie Elaine MD [facility] General Surgery [address], [address] [address] 10/27/2023 14:18:59 10/27/2023 15:19:44 Chronic diarrhea 691475149 K52.9 [id number] Stephanie Elaine MD [facility] General Surgery [address] [facility], [address] [address] 01/05/2024 12:32:09 01/05/2024 12:50:38 Chronic diarrhea 851140753 K52.9 [id number] Cr Molina MD [facility]_[address] [address] 05/08/2024 11:58:23 05/08/2024 12:45:01 Pain of bilateral knee joints 6279209817 38493 M25.561 M25.014 [id number] Rick Celis DPM [facility] [address] [facility], [address] [address] 05/16/2024 12:00:46 07/21/2024 09:44:18 Metatarsalgia 44878548 M77.41 M77.42 sub 1st metatarsal headrecomm end supportive shoe gear and orthoticsr ice therapyno strenuous activities follow-up as needed Obesity 660702328 E66.9 recommend weight loss Localized, primary osteoarthritis of the ankle and/or foot 995881916 M19.079 bilateral midfootas above [id number] Jax Mixon MD [facility] Pul[facility] [address] [place] [address] 0 05/18/2024 09:42:34 05/18/2024 12:56:09 Moderate persistent asthma 456507804 J45.40 [id number] Lita Young APRN [facility] [address] [place] [address] 08/16/2024 14:47:30 08/16/2024 15:50:54 Congestive heart failure 15923108 I50.9 Hyperlipidemia 00953690 E78.5 Hyperthyroidism 32742804 E05.90 Iron defic iency anemia 73671038 D50.9 Type 2 ophelia betes mellitus 98859665 E11.9 Hepatitis C screening 41 9333563 Z11.59 Screening mammography 24 310688 Z12.31 Candidiasis of skin 4988 3006 B37.2 [id number] Stephanie Elaine MD [facility] General Surgery [address] [place] [address] 1 08/30/2024 10:45:58 08/30/2024 11:41:07 Chronic diarrhea 188767864 K52.9 Iron defic iency anemia 07448697 D50.9 Health Concerns Section Related Observation LastModified by Organization Detai ls LastModified Time None Recorded Concern Status LastModified by Organization Details LastModified Time None Recorded Advance Directives Directive None Recorded Payers Encounter Date Sequence Insurance Name Policy Number Policy Harrell Covered Member ID Harrell Member ID Guarantor Name 05/08/2024 1 [facility] ON OR AFTER 01/23/21 (MEDICAID REPLACEMENT - HMO) Lela Macario Douthit [id number] Lela Molina 05/16/2024 1 [facility] ON OR AFTER 01/23/21 (MEDICAID REPLACEMENT - HMO) Lela Macario Douthit [id number] Lela Macario Douthit 05/18/2024 1 [facility] ON OR AFTER 01/23/21 (MEDICAID REPLACEMENT - HMO) Lela Macario Douthit [id number] Lela Macario Douthit 08/16/2024 1 [facility] ON OR AFTER 01/23/21 (MEDICAID REPLACEMENT - HMO) Lela Macario Douthit [id number] Lela Macario Douthit 08/30/2024 1 [facility] ON OR AFTER 21 (MEDICAID REPLACEMENT - HMO) Lela Macario Douthit [id number] Lela Macario Douthit Notes Date Note Type Note Provider Name and Address Organization Details Recorded Time 05/16/2024 text/html . Patient is a 59-year-old female she presents to office with complaints of bilateral foot pain worse to the left foot. Patient states she has bilateral 1st metatarsal head pain she denies any injury. Patient had x-rays which were reviewed with the patient she was found to have mild arthritic changes. Patient also has some mild arthritic changes of the midfoot she has numbness and tingling that shoots down to her 1st and 2nd toes on the left foot. Patient does have swelling of the lower extremities and she has a slip and style Sketchers shoe which is applying obvious pressure to the dorsal aspect of the left foot I did review other treatment options in terms of shoe gear to avoid high pressure to the dorsal midfoot as well as lacing options. Patient denies any other complaints. Rick Celis DPM [address] [place] [address], [facility] [address], [place], [address], [place] - [facility] [employer] [facility] 05/29/2024 10:30:37 05/18/2024 text/html Primary care/Ref erring provider: Melissa Jackson is here to go over her asthma management. She has been lost to follow up since 08/2022. Initial development of shortness of breath: 2019Duration of shortness of breath: 5 yearsCondition of shortness of breath: stableTiming of shortness of breath: noneFrequency: every hourLimits activities: yesAggravating factors: walking, taking a showerAlleviating factors: restModified Medical Research [place] (mMRC) Dyspnea Scale - Grade 2Grade 0 I only get breathless with strenuous exercise .Grade 1 I get short of breath when hurrying on the level or walking up a slight hill .Grade 2 I walk slower than people of the same age on the level because of breathlessness or have to stop for breath when walking at my own pace on the level .Grade 3 I stop for breath after walking about 100 yards or after a few minutes on the level .Grade 4 I am too breathless to leave the house or I am breathless when dressing . Patient's personal best peak flow today remains at 150 L/min.Treatment history:albuterol nebs since 10/2019Ventolin HFA since 04/2019 Spiriva Handihaler since 02/2020Symbicort HFA 160/4.5 since 10/2019Trelegy Ellipta 100/62.5/25 mcg 08/2020, not helpingOther symptoms:Productive cough: noWheezing: yesChest tightness: yesOrthopnea: 2-pillowFrequent throat clearing or swallowing: noPalpitations: yesHeartburn: noDysphagia: noEdema: yesEnvironmental exposures:Nicotine smoke: 1 ppd [id number] = 45 pack years, currently vapingPaint: noDye: noDust mites: yesMold: noDamp basement: noWood burning stove: until 1980Animal dander: yes dogCockroaches: noPollen: yesArsenic: noAsbestos: noBeryllium: noCadmium: noChromium: noCoal smoke: noDiesel fumes: noNickel: noSilica: noSoot: noEPWORTH SLEEPINESS SCALE (ESS)CHANCE OF DOZING SCORE0 = would never doze1 = slight chance of dozing2 = moderate chance of dozing3 = high chance of dozingSITUATION AND CHANCE OF DOZINGSitting and reading - 2Watching television - 2Sitting inactive in a public place (e.g. a theater or meeting) - 2As a passenger in a car for an hour without a break - 2Lying down to rest in the afternoon when circumstances permit - 3Sitting and talking to someone - 2Sitting quietly after lunch without alcohol - 2In a car, while stopped for a few minutes in the traffic - 1TOTAL SCORE 16Subjectively, patient has a moderate chance of dozing. Jax Mixon MD [address] [facility], [address], [place], [address], [facility] [employer] [facility] [employer] [facility] 05/18/2024 10:48:09 08/16/2024 text/html Lela presents today to establish care as a new patient. She states that her previous provider did not give the time that she needed and overlooked her disease processes. She states that she was started on Trulicity. Medications were reviewed. Lita Young APRN [address] [facility], [place], [address], [employer] [facility] [employer] 08/16/2024 15:38:34 08/30/2024 text/html PT WAS SEEN IN T HE OFFICE TODAY FOR TANIYA. PT ADMITS /DENIES SOB/CP/PALPN/ TIREDNESS /FATIGUE / BLACK/ RED STOOL . PT IS S/P COLONSOCOPY WITH BX . PATHOLGY WAS NORMAL . PT IS C/O DIARRHEA AND THEN CONSTIPATION AFTER DICYCLOMINE 10 MG , 2 TABS . SHE SAYS THAT SHE IS VERY TIRED . PT IS ON FE INFUSIONS WITH HEMATOLOGY . LABS : HB 12.3, PLTS 255, MCV 81, FE67, UIBC 268,TIBC 335, SAT 20 %. Stephanie Elaine MD [address] [facility], [address], [place], [address], [employer] [facility] [employer] 08/30/2024 12:11:04 OBGyn Episode No OBEpisode recorded.
--- OUTSIDE RECORDS SUMMARY | 2024-11-12 16:57 | XMS_ITS | Clinical Summary ---
Author Organization [facility] Address [address], [facility] [address] [place] [address] Phone Care Team Providers Care [place] [place] Operator Name Role Phone Mu Oleary Primary Care Provider [phone] Minh Bazan MD Unavailable Sandoval Lacey MD Unavailable Allergies No known active allergies Medications albuterol 108 (90 Base) MCG/ACT Aerosol Solution Ventolin HFA 90 mcg/actuation aerosol inhaler 1 Active Symbicort 160-4.5 MCG/ACT Aerosol 1 Active furosemide (LASIX) 20 MG Tablet 1 Active HYDROcodone-mihaela taminophen (NORCO) 10-325 MG Tablet 1 Active hydrOXYzine (ATARAX) 10 MG Tablet hydroxyzine HCl 10 mg tablet Active losartan (COZAAR) 100 MG Tablet 1 Active rOPINIRole (REQUIP) 1 MG Tablet 1 Active Spiriva HandiHaler 18 MCG Capsule 1 Active tiZANidine (ZANAFLEX) 4 MG Tablet 1 Active dicyclomine (BENTYL) 10 MG Capsule 2 Active ezetimibe (ZETIA) 10 MG Tablet 2 Active FLUoxetine (PROZAC) 40 MG Capsule 2 Active cyanocobalamin (VITAMIN B-12) 1000 MCG/ML Solution INJECT 1ML UNDER THE SKIN EVERY DAY FOR 3 DAYS, THEN ONCE A WEEK FOR 4 WEEKS, THEN ONCE A MONTH THEREAFTER 7 mL 2 2 Active nystatin (MYCOSTATIN) 437031 UNIT/GM Cream APPLY TOPICALLY TO AFFECTED AREA TWO TIMES DAILY 2 Active SUMAtriptan (IMITREX) 100 MG Tablet TAKE 1 TABLET AT ONSET OF HEADACHE MAY REPEAT IN 2 HOURS. NO MORE THAN 2 TABLETS IN 24 HOURS 2 Active clotrimazole (LOTRIMIN) 1 % Cream Active ARIPiprazole (ABILIFY) 5 MG Tablet 2 Active omeprazole (PriLOSEC) 40 MG CAPSULE DELAYED RELEASE TAKE 1 CAPSULE BY MOUTH EVERY DAY BEFORE MEALS 2 Active promethazine-de xtromethorphan (PROMETHAZINE-D M) 6.25-15 MG/5ML Syrup 3 Active diphenoxylate-a tropine (LOMOTIL) 2.5-0.025 MG Tablet take one tablet by mouth three times daily as needed 4 Active ergocalciferol (VITAMIN D) 01133 UNIT Capsule TAKE ONE CAPSULE BY MOUTH EVERY WEEK FOR VITAMIN DEFICIANCY 4 Active LORazepam (ATIVAN) 1 MG Tablet take 1 tablet by mouth once daily as needed Active FLUoxetine (PROzac) 20 MG Capsule TAKE ONE CAPSULE BY MOUTH EVERY MORNING ALONG WITH 40MG CAPSULE 4 Active Rexulti 0.5 MG Tablet TAKE ONE TABLET BY MOUTH EVERY NIGHT AT BEDTIME Active Blood Glucose Monitoring Suppl (ONE TOUCH ULTRA 2) w/Device Kit USE TO CHECK BLOOD SUGAR TWICE DAILY EVERY MORNING & EVENING 4 Active budesonide-form oterol fumarate (Symbicort) 160-4.5 MCG/ACT Aerosol Inhale 2 puffs twice a day by inhalation route. Active OneTouch Ultra Strip USE TO CHECK BLOOD SUGAR TWICE DAILY EVERY MORNING & EVENING 4 Active Lancets (OneTouch Delica Plus Kodvvc12K) Misc USE TO CHECK BLOOD SUGAR TWICE DAILY EVERY MORNING & EVENING 4 Active amLODIPine (NORVASC) 5 MG Tablet Take 5 mg by mouth daily. 4 Active rivaroxaban (Xarelto) 20 MG TabletIndicatio ns:History of PE Take 1 Tablet by mouth daily (with dinner). Take with food. 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 08/21/2021 Iron deficiency anemia, unspecified 05/16/2021 Anemia of unknown etiology 04/04/2021 Sleep disorder 03/14/2021 Heart disease 03/14/2021 Fibromyalgia 03/14/2021 Arthritis 03/14/2021 Heartburn 03/14/2021 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 Depressive disorder 03/14/2021 Asthma 03/14/2021 Venous insufficiency 12/27/2020 History of pulmonary embolism 11/26/2020 Congestive heart failure 11/26/2020 Chronic obstructive lung disease 09/03/2020 Chronic diastolic (congestive) heart failure 04/2018 Hypercholesterolemia 04/09/2017 HTN (hypertension) 02/26/2017 Encounters Date Type Department Care Team Description 10/13/2024 10:00 AM CDT Clinical Support [facility] [address] [phone] Nurse, Johana Loredo Iron deficiency anemia, unspecified iron deficiency anemia type (Primary Dx); Iron deficiency anemia due to chronic blood loss; Venous insufficiency; History of pulmonary embolism 10/11/2024 Telephone [facility] [address] [phone] Minh Bazan MD [place] Call / lab results 10/10/2024 12:30 PM CDT Lab [facility] [address] [phone] Lab, Johana Loredo Anemia of unknown etiology; Iron deficiency anemia, unspecified iron deficiency anemia type 10/10/2024 Travel 10/09/2024 Telephone [facility] [address] [phone] Minh Bazan MD [place] Call / Low Iron 09/22/2024 Refill [facility] [address] [phone] Minh Bazan MD Medication Refill 09/11/2024 11:30 AM MOLD SHOP SUPERVISOR Clinical Support [facility] [address] [phone] [facility] Anemia of unknown etiology (Primary Dx); Other iron deficiency anemia; Iron deficiency anemia, unspecified iron deficiency anemia type 09/11/2024 10:30 AM MOLD SHOP SUPERVISOR Office Visit [facility] [address] [phone] Minh Bazan MD Other iron deficiency anemia (Primary Dx) 09/11/2024 Travel from Last 3 Months Immunizations Immunization Administration Dates Next Due Influenza, Seasonal, Injectable, Undefined 06/27 TDAP Vaccine 06/27/2014 Family History Medical History Relation Name Comments Cancer Maternal Aunt Relation Name Status Comments Father Other pancreatitis Maternal Aunt Mother Other blood clot of b rain, busted Social History Tobacco Use Types Packs/Day Years Used Date Smoking Tobacco: Former Cigarettes Q uit: 03/2023 Smokeless Tobacco: Never Tobacco Cessation:Counseling Given: Not Answered Alcohol Use Standard Drinks/Week Comments Yes 0 (1 standard drink = 0.6 oz pur e alcohol) beer, socially PHQ-2 Answer Date Recorded Total Score - Questions 1-9 12 07/26 Comments Unknown Sex and Gender Information Value Date Recorded Sex Assigned at Not on file Legal Sex Female 11:27 AM CDT Gender Identity Not on file Sexual Orientation Not on file Last Filed Vital Signs Vital Sign Reading Time Taken Comments Blood Pressure 158/86 09/11/2024 10:52 AM MOLD SHOP SUPERVISOR Pulse 85 09/11/2024 10:52 AM MOLD SHOP SUPERVISOR Temperature 36.7 C (98 F) 09/11/2024 10:52 AM MOLD SHOP SUPERVISOR Respiratory Rate 18 09/11/2024 10:5 2 AM MOLD SHOP SUPERVISOR Oxygen Saturation 96% 09/11/2024 10: 52 AM MOLD SHOP SUPERVISOR Inhaled Oxygen Concentration - - Weight 108.7 kg (239 lb 11.2 oz) 2024 10:52 AM MOLD SHOP SUPERVISOR Height 154.9 cm (5' 1 ) 09/11/2024 10:5 2 AM MOLD SHOP SUPERVISOR Body Mass Index 45.29 09/11/2024 10:52 AM MOLD SHOP SUPERVISOR Plan of Treatment Upcoming Encounters Date Type Department Care Team (Late st Contact Info) Description 12/08/2024 10:30 AM CDT Office Visit [facility] [address] [phone] Minh Baazn MD [address] [facility] [address] [place] [phone] 12/08/2024 10:45 AM CDT Clinical Support [facility] [address] [phone] Nurse, Cc [facility] Health Maintenance Due Date Last Done Comments Hepatitis C Virus (HCV) Screening 1963 Mammogram 1963 Pneumococcal Immunization (50+ years) (1 of 2 - PCV) 1982 Pap Smear 1984 Cervical Cancer Screening (CCS) 1993 HPV/Cotest 1993 Colonoscopy 2008 Cologuard 2013 Zoster Immunization (1 of 2) 2013 Colorectal Cancer Screening 06/04/2022 Respiratory Syncytial Virus (RSV) Immunization (Adult) (1 - Risk 60-74 years 1-dose series) 2023 Immunochemical Fecal Occult Blood 06/03/2023 06/03/2022 SARS-COV-2 Immunization ( season) 2024 01/30/2022, 08/04/2021, 07/08/2021 Td Immunization Every 10 Years (Adults With 1 Tdap) 06/27/2024 06/27/2014 DTaP/Tdap/Td Immunization Discontinued 06/27/2014 Influenza Immunization Completed , 07/08/2021, 05/30/2019, Additional history exists Hepatitis B Immunization Aged Out No longer eligible based on patient's age to complete this topic Meningococcal Immunization (ACWY) Aged Out No longer eligible based on patient's age to complete this topic Rotavirus Immunization Aged Out No lo nger eligible based on patient's age to complete this topic Procedures Procedure Name Priority Date/Time Associated Diagnosis Comments CBC WITH AUTO DIFF OH Routine 10/10/2024 12:13 PM CDT CMP (COMPREHENSIVE METABOLIC PANEL) Routine 10/10/2024 12:13 PM CDT Anemia of unknown etiology Iron deficiency anemia, unspecified iron deficiency anemia type LACTATE DEHYDROGENASE (LD) Routine 10/10/2024 12:13 PM CDT Anemia of unknown etiology Iron deficiency anemia, unspecified iron deficiency anemia type IRON W/ IRON BINDING CAPACITY OH Routine 10/10/2024 12:13 PM CDT Anemia of unknown etiology Iron deficiency anemia, unspecified iron deficiency anemia type FERRITIN Routine 10/10/2024 12:13 PM CDT Anemia of unknown etiology Iron deficiency anemia, unspecified iron deficiency anemia type from Last 3 Months Results * (ABNORMAL) IRON W/ IRON BINDING CAPACITY OH (10/10/2024 12:13 PM CDT) IRON 51 50 - 212 ug/dL [facility] UIBC 307 155 - 355 ug/dL [facility] TIBC 358 261 - 478 ug/dl [facility] % Saturation 14(L) 20 - 50 % [facility] 10/10/2024 12:1 3 PM CDT Narrative [facility] - 10/10/2024 1:52 PM CDT Release to patient->Immediate us Minh Bazan MD LAB SEND OUTS Final Result [facility] [place] [address], * (ABNORMAL) CBC WITH AUTO DIFF OH (10/10/2024 12:13 PM CDT) WBC 8.6 4.0 - 10.0 10*3/uL [facility] HGB 10.7(L) 11.2 - 15.7 g/dL [facility] [employer] [facility] HCT 34.8 34.1 - 44.9 % [facility] RBC 4.33 3.93 - 5.22 10*6/uL [facility] MCV 80 79 - 95 fL [facility] MCH 24.7(L) 25.6 - 32.2 pg [facility] MCHC 30.7(L) 32.2 - 36.5 g/dL [facility] RDW 16.3(H) 11.6 - 14.4 % [facility] PLT 235 163 - 369 10*3/uL [facility] MPV 10.2 9.4 - 12.4 fL [facility] Neutrophils % 59.0 36.0 - 66.0 % [facility] Lymphocytes % 27.7 19.0 - 40.0 % [facility] Monocytes % 9.3 4.1 - 12.1 % [facility] Eosinophils % 3.0 0.0 - 3.5 % [facility] Basophils % 0.6 0.0 - 1.0 % [facility] Absolute Neutrophils 5.1 1.4 - 6.6 10*3/uL [facility] Absolute Lymphocytes 2.4 0.8 - 4.0 10*3/uL [facility] Absolute Monocytes 0.8 0.2 - 1.2 10*3/uL [facility] Absolute Eosinophils 0.3 0.0 - 0.4 10*3/uL [facility] Absolute Basophils 0.1 0.0 - 0.1 10*3/uL [facility] 10/10/2024 12:1 3 PM CDT us Minh Bazan MD LAB SEND OUTS Final Result [facility] [employer] [facility] [place] [address] [place] [address], [place] [phone] * LACTATE DEHYDROGENASE (LD) (10/10/2024 12:13 PM CDT) LDH 147 140 - 271 U/L [facility] Blood 10/10/2024 12:1 3 PM CDT Narrative [facility] - 10/10/2024 1:52 PM CDT Release to patient->Immediate Minh Bazan MD CHEMISTRY ORDERABLES Final R esult [facility] [address] [place] [address], [place] [phone] * FERRITIN (10/10/2024 12:13 PM CDT) Ferritin 33 11 - 307 ng/mL [facility] Blood 10/10/2024 12:1 3 PM CDT [facility] - 10/11/2024 2:49 PM CDT Release to patient->Immediate Minh Bazan MD CHEMISTRY ORDERABLES Final R esult [facility] [place] [address], [place] [phone] * (ABNORMAL) CMP (COMPREHENSIVE METABOLIC PANEL) (10/10/2024 12:13 PM CDT) Glucose 146(H) 70 - 105 mg/dL [facility] Blood Urea Nitrogen 15 7 - 25 mg/dL [facility] Creatinine 0.8 0.6 - 1.2 mg/dL [facility] Sodium 140 136 - 145 mEq/L [facility] Potassium 4.3 3.5 - 5.1 mEq/L [facility] Chloride 108(H) 98 - 107 mEq/L [facility] Bicarbonate 23 21 - 31 mEq/L [facility] Total Bilirubin 0.2(L) 0.3 - 1.0 mg/dL [facility] Alk. Phosphatase 89 34 - 104 U/L [facility] Aspartate Aminotransferase 15 13 - 39 U/L [facility] Alanine Aminotransferase 22 7 - 52 U/L [facility] Total Protein 6.5 6.4 - 8.9 g/dL [facility] Albumin 3.7 3.5 - 5.7 g/dL [facility] Calcium 9.2 8.6 - 10.3 mg/dL [facility] Anion Gap 13.3 7.0 - 15.0 mEq/L [facility] Globulin 2.8 2.0 - 3.5 g/dL [facility] EGFR 84 >60 ml/min/1. 73m2 [facility] Comment: This eGFR is calculated using 2020 CKD-EPI Creatinine equation without race modifier based on the NKF-ASN task force recommendations Equation: aRSS=362*min(SCr/k,1)a*max(SCr/k,1)-1.200*0.9938Age*1.012 (if female), where SCr is serum creatinine, k is 0.7 for females and 0.9 for males, and a is -0.241 for females and -0.302 for males Blood 10/10/2024 12:1 3 PM CDT Narrative [facility] - 10/10/2024 1:55 PM CDT Release to patient->Immediate IS THE PATIENT REQUIRED TO BE FASTING FOR 8 HOURS?->No us Minh Bazan MD CHEMISTRY ORDERABLES Final R esult [facility] [employer] [facility] [place] [address], [place] [phone] from Last 3 Months Insurance MEDICAID [facility] Care Teams [employer]ble [employer] Operator Relationship Specialty Start Date End Date Mu Oleary PA [address] [place] [address] PCP - General Physician Gas Pumping Station Helper 03/21/21 Minh Bazan MD [address] [place] [phone] Consulting Physician Oncology 03/21/21 Sandoval Lacey MD [address] [place] [address] Senior Quality Assurance Specialist Cardiovascular Disease - Cardiology 08/25/21
--- NOTE | 2024-11-12 17:13 | ED_ITS ---
HPI - Epistaxis General Chief complaint: Epistaxis Stated complaint: 4 nosebleeds today, HI 5 days ago Time Seen by Provider: 11/12/24 17:06 History of Present Illness HPI Narrative: Patient presenting here with several days of nose bleeds, she has been able to stop them without issue, but she thinks that may have happened after she hit her head on a metal bed frame 5 days ago. She is on blood thinners and had not been seen for it. Related Data Home Medications ?Medication ?Instructions ?Recorded ?Confirmed ?Last Taken ?Type albuterol sulfate 90 mcg/actuation 2 puff inhalation PRN PRN 11/12/20 11/12/24 Unknown History aerosol inhaler (Ventolin HFA) Shortness Of Breath Or Wheezing budesonide-formoterol HFA 160 2 puff inhalation BID 11/12/20 11/12/24 Unknown History mcg-4.5 mcg/actuation aerosol inhaler (Symbicort) clonazepam 1 mg tablet 1 mg PO DAILY 11/12/20 11/12/24 Unknown History fluoxetine 60 mg tablet 60 mg PO DAILY 11/12/20 11/12/24 Unknown History furosemide 20 mg tablet 20 mg PO DAILY 11/12/20 11/12/24 Unknown History hydrocodone 10 mg-acetaminophen 1 tablet PO Q12H PRN Pain 11/12/20 11/12/24 Unknown History 325 mg tablet hydroxyzine HCl 10 mg tablet 10 mg PO TID PRN Muscle Spasm 11/12/20 11/12/24 Unknown History losartan 50 mg tablet 50 mg PO DAILY 11/12/20 11/12/24 Unknown History ropinirole 1 mg tablet 1 mg PO HS 11/12/20 11/12/24 Unknown History brexpiprazole 0.5 mg tablet 0.5 mg PO DAILY 11/12/24 11/12/24 Unknown History (Rexulti) rivaroxaban 15 mg tablet (Xarelto) 15 mg PO Q24H 11/12/24 11/12/24 Unknown History Allergies Allergy/AdvReac Type Severity Reaction Status Date / Time No Known Allergies Allergy Mild Verified 11/12/24 17:24 Review of Systems 2 Review of Systems: All systems reviewed & are unremarkable except as noted in HPI and below PMFSH Past Medical History Medical History CHF (congestive heart failure) COPD (chronic obstructive pulmonary disease) Family History Family History Other Cerebrovascular accident Family history of alcoholism Social History Social History Smoking packs per day: 1 Smoking cigarettes per day: 20.0 Years smoked: 35 Smoking pack-years: 35.00 Smoking status: Current every day smoker Tobacco type: cigarettes Alcohol intake: former Substance use: never Spiritual care concerns: No Exam Const: Other: EXAMINATION OF ORGAN SYSTEMS/BODY AREAS: Constitutional: Vital signs per nursing GENERAL:[No acute distress, non-toxic appearing.] HEAD: Normal with no signs of head trauma. EYES: EOMI, conjunctiva normal ENT: Dried blood in right naris LUNGS: Nonlabored breathing. HEART: [Regular rate and rhythm] ABD: [Soft], [nontender to palpation] EXT: Normal range of motion SKIN: [No rashes or lesions.] NEURO: [Alert and oriented x 3. No gross focal sensory or strength deficits.] PSYCH: Normal affect Course Vital Signs Vital signs: Vital Signs Temperature 97.6 F 11/12/24 16:54 Pulse Rate 76 11/12/24 16:54 Respiratory Rate 16 11/12/24 16:54 Blood Pressure 150/80 H 11/12/24 16:54 Pulse Oximetry 100 11/12/24 16:54 Temperature 97.6 F 11/12/24 16:54 Pulse Rate 82 11/12/24 17:22 Respiratory Rate 18 11/12/24 17:22 Blood Pressure 156/78 H 11/12/24 17:22 Pulse Oximetry 98 11/12/24 17:22 MDM - Epistaxis MDM Narrative Medical decision making narrative: Patient presenting here with nose bleeds after head trauma, she is on blood thinners. She would like to have a CT so this is done here. On exam she does have some dried blood in the nares but no active bleeding. CT brain neg. Counseled on methods for nosebleed prevention and treatment and given f/u to ENT w/ return precautions. Discharge Plan Discharge Clinical Impression: Epistaxis, Closed head injury Patient Disposition: Home Condition: Stable Instructions: Nosebleed (ED) Additional Instructions: Please follow up with your doctor; you can always return for any further issues. Patient Language: Citizen Of [place] Prescriptions: No Action losartan 50 mg tablet 50 mg PO DAILY ropinirole 1 mg tablet 1 mg PO HS clonazepam 1 mg tablet 1 mg PO DAILY furosemide 20 mg tablet 20 mg PO DAILY albuterol sulfate [Ventolin HFA] 90 mcg/actuation HFA aerosol inhaler 2 puff INHALATION PRN PRN (Reason: Shortness Of Breath Or Wheezing) budesonide-formoterol [Symbicort] 160-4.5 mcg/actuation HFA aerosol inhaler 2 puff INHALATION BID fluoxetine 60 mg tablet 60 mg PO DAILY hydrocodone-acetaminophen 10-325 mg Tablet 1 tablet PO Q12H PRN (Reason: Pain) hydroxyzine HCl 10 mg Tablet 10 mg PO TID PRN (Reason: Muscle Spasm) buspirone 5 mg Tablet 5 mg PO Q12HR Qty: 60 2RF Rexulti 0.5 mg tablet 0.5 mg PO DAILY Xarelto 15 mg Tablet 15 mg PO Q24H prednisone 20 mg tablet 20 mg PO DAILY Qty: 5 0RF acetaminophen 500 mg capsule 500 mg PO Q6H PRN (Reason: fever or pain) Qty: 30 0RF albuterol sulfate 90 mcg/actuation aero powdr breath act w/sensor 1 inhalation INHALATION Q4-6H PRN (Reason: shortness of breath or wheezing) Qty: 1 0RF Follow-up/Referrals: Anirudh,DAVINA Ramos [Non-Staff] - Poncho Troy MD [Physician] - 2 Days
--- OUTSIDE RECORDS SUMMARY | 2024-11-12 17:19 | XMS_ITS | Clinical Summary ---
Author Organization [facility] Address [address] [place] [address] Care Team Providers Care Apprentice Cosmetologist Name Role Phone None, Provider MD Primary [...] (06/04/2022): Added automatically from request for surgery [id number] Melena 06/03/2022 Overview (06/04/2022): Added automatically from request for surgery [id number] Acute blood loss anemia 06/03/2022 Overview (06/04/2022): Added automatically from request for surgery [id number] Epigastric pain 06/03/2022 Overview (06/04/2022): Added automatically from request for surgery [id number] Pyrosis 06/03/2022 Overview (06/04/2022): Added automatically from request for surgery [id number] Immunizations Immunization Administration Dates Next Due Fluzone [...] on file Legal Sex Female 12:39 PM TOOL FILER Gender Identity Not on file Sexual Orientation Not on file Last Filed Vital Signs Vital Sign Reading Time Taken Comments Blood Pressure 151/82 06/06/2022 12:00 PM TOOL FILER Pulse 82 06/06/2022 12:00 PM TOOL FILER Temperature 36.7 C (98 F) 06/06/2022 12:00 PM TOOL FILER Respiratory Rate 19 06/06/2022 12:00 PM TOOL FILER Oxygen Saturation 97% 06/06/2022 12:00 PM TOOL FILER Inhaled Oxygen Concentration - - Weight 99 kg (218 lb 4.1 oz) 06/03/2022 1:08 PM TOOL FILER Height 157.5 cm (5' 2 ) 06/03/2022 1:08 PM TOOL FILER Body Mass Index 39.92 06/03/2022 1:08 PM TOOL FILER Plan of Treatment Health Maintenance Due Date [...] BLOOD, FECES STAT 06/03/2022 4 :02 PM TOOL FILER from Last 3 Months or Most Recently Relevant to Health Maintenance Results * OCCULT BLOOD, FECES (06/03/2022 4:02 PM TOOL FILER) OCCULT BLOOD FECAL POSITIVE 06/03/2022 4:22 PM TOOL FILER [facility] STOOL SPECIMEN / Unknown 06/03/2022 4:02 PM TOOL FILER us Carly Hester MD BODY FLUIDS AND STOOLS ORDERA BLES Final Result [facility] [address] [place] [address], [place] [phone] from Last 3 Months or Most Recently Relevant to Health Maintenance Insurance [employer] Advance Directives * Full Code (Latest Code Status on File) Date Activated Date Inactivated Comments 06/03/2022 5:49 PM 06/06/2022 3:58 PM Care Teams Apprentice Cosmetologist Relationship Specialty Start Date End Date None, Provider, MD PCP - General UNKNOWN PHYSICIAN SPECIALTY 06/03/22
--- OUTSIDE RECORDS SUMMARY | 2024-11-12 17:19 | XMS_ITS | Encounter Summary ---
Author Organization [facility] Address [address] [place] [address] Phone Care Team Providers Care Manager Business Process Name Role Phone Mu Oleary Primary Care Provider Minh Bazan MD Unavailable [phone] Sandoval Lacey MD Unavailable Encounter Details Date Type Department Care Team (Late st Contact Info) Description 10/02/2021 Telephone [facility] [address] [phone] Minh Bazan MD [address] [address] Social History Tobacco Use Types [...] COVID-19? No / Unsure 09/05/2021 12:26 PM ENTERPRISE ARCHITECT MANAGER documented as of this encounter Miscellaneous Notes * Telephone Encounter - Annie Barnes - 10/02/2021 3:47 PM CST Pt tested positive for covid on 09/30/21. Rescheduled appt to 10/16/21 RPRISE ARCHITECT MANAGER documented in this encounter Plan of Treatment Upcoming Encounters Date Type Department Care Team (Late st Contact Info) Description 12/08/2024 10:30 AM CDT Office Visit [facility] [address] [phone] Minh Bazan MD [address] [place] [address] [address] 12/08/2024 10:45 AM CDT Clinical Support [facility] [address] [phone] Nurse, Cc [facility] documented as of this encounter Visit Diagnoses Not on filedocumented in this encounter Additional Health Concerns Assessment Noted Time PHQ-9 Depression Total Score: 0 05/16/20 10:46 AM CDT documented as of this encounter Care Teams Manager Business Process Relationship Specialty Start Date End Date Mu Oleary PA [address] [place] [id number] PCP - General Physician Apprise Counselor 03/21/21 Minh Bazan MD [address] [place] [phone] Consulting Physician Oncology 03/21/21 Sandoval Lacey MD [address] [place] [address] Electric Dolly Operator Cardiovascular Disease - Cardiology 08/25/21 documented as of this encounter
--- OUTSIDE RECORDS SUMMARY | 2024-11-12 17:19 | XMS_ITS | Encounter Summary ---
Author Organization [facility] Address [address] [place] [address] Phone Care Team Providers Care Aboriginal Community Council Member Name Role Phone Mu Oleary Primary Care Provider Minh Bazan MD Unavailable [phone] Sandoval Lacey MD Unavailable Reason for Visit * Reason Comments Medication Refill Encounter Details Date Type Department Care Team (Late st Contact Info) Description 01/04/2022 Refill [facility] [address] [phone] Minh Bazan MD [address] [address] Medication Refill Social History Tobacco [...] CDT Office Visit [facility] [address] [phone] Minh Bazan MD [address] [id number] 12/08/2024 10:45 AM CDT Clinical Support [facility] [address] [phone] Nurse, Cc [facility] documented as of this encounter Visit Diagnoses Not on filedocumented in this encounter Additional Health Concerns Assessment Noted Time PHQ-9 Depression Total Score: 0 05/16/20 10:46 AM CDT documented as of this encounter Care Teams Aboriginal Community Council Member Relationship Specialty Start Date End Date Mu Oleary PA [address] [place] [id number] PCP - General Physician Classroom Paraprofessional 03/21/21 Minh Bazan MD [address] [place] [phone] Consulting Physician Oncology 03/21/21 Sandoval Lacey MD [address] [place] [address] Pediatric Medical Assistant Cardiovascular Disease - Cardiology 08/25/21 documented as of this encounter
--- OUTSIDE RECORDS SUMMARY | 2024-11-12 17:19 | XMS_ITS | Clinical Summary ---
Author Organization [facility] Address [address] [facility] [address] [place] [address] Phone Care Team Providers Care Real Time Analyst Name Role Phone Mu Oleary Primary Care Provider Minh Bazan MD Unavailable [phone] Sandoval Lacey MD Unavailable Allergies No known [...] 7 mL 2 2 Active nystatin (MYCOSTATIN) 875338 UNIT/GM Cream APPLY TOPICALLY TO AFFECTED AREA [...] as needed 4 Active ergocalciferol (VITAMIN D) [address]5524 UNIT Capsule TAKE ONE CAPSULE BY MOUTH [...] EVENING 4 Active Lancets (OneTouch Delica Plus [id number]) Misc USE TO CHECK BLOOD SUGAR TWICE [...] CDT Clinical Support [facility] [address] [phone] Nurse, Johana Loredo Iron deficiency anemia, unspecified iron deficiency anemia type (Primary Dx); Iron deficiency anemia due to chronic blood loss; Venous insufficiency; History of pulmonary embolism 10/11/2024 Telephone [facility] [address] [phone] Minh Bazan MD Canopy Call / lab results 10/10/2024 12:30 PM CDT Lab [facility] [address] [phone] Lab, Johana Loredo Anemia of unknown etiology; Iron deficiency anemia, unspecified iron deficiency anemia type 10/10/2024 Travel 10/09/2024 Telephone [facility] [address] [phone] Minh Bazan MD Canopy Call / Low Iron 09/22/2024 Refill [facility] [address] [phone] Minh Bazan MD Medication Refill 09/11/2024 11:30 AM 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 Clinical Support [facility] [address] [phone] [facility] Anemia of unknown etiology (Primary Dx); Other iron deficiency anemia; Iron deficiency anemia, unspecified iron deficiency anemia type 09/11/2024 10:30 AM 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 Office Visit [facility] [address] [phone] Minh Bazan MD Other iron deficiency anemia [...] Comments Blood Pressure 158/86 09/11/2024 10:52 AM 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 Pulse 85 09/11/2024 10:52 AM 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 Temperature 36.7 C (98 F) 09/11/2024 10:52 AM 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 Respiratory Rate 18 09/11/2024 10:5 2 AM 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 Oxygen Saturation 96% 09/11/2024 10: 52 AM 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 Inhaled Oxygen Concentration - - Weight 108.7 kg (239 lb 11.2 oz) 2024 10:52 AM 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 Height 154.9 cm (5' 1 ) 09/11/2024 10:5 2 AM 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 Body Mass Index 45.29 09/11/2024 10:52 AM 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 Plan of Treatment Upcoming Encounters Date Type Department Care Team (Late st Contact Info) Description 12/08/2024 10:30 AM CDT [facility] [address] [phone] Minh Bazan MD [address] [place] [address] [place] [phone] 12/08/2024 10:45 AM CDT Clinical Support [facility] [address] [phone] Nurse, Cc [facility] Health Maintenance Due Date Last Done [...] IRON 51 50 - 212 ug/dL [facility] UIBC 307 155 - 355 ug/dL [facility] TIBC 358 261 - 478 ug/dl [facility] % Saturation 14(L) 20 - 50 % [facility] 10/10/2024 12:1 3 PM CDT Narrative [facility] - 10/10/2024 1:52 PM CDT Release to patient->Immediate us Minh Bazan MD LAB SEND OUTS Final Result [facility] [place] [address], * (ABNORMAL) CBC WITH AUTO DIFF [place] (10/10/2024 12:13 PM CDT) WBC 8.6 4.0 - 10.0 10*3/uL [facility] HGB 10.7(L) 11.2 - 15.7 g/dL [facility] HCT 34.8 34.1 - 44.9 % [facility] RBC 4.33 3.93 - 5.22 10*6/uL [facility] MCV 80 79 - 95 fL [facility] MCH 24.7(L) 25.6 - 32.2 pg [facility] MCHC 30.7(L) 32.2 - 36.5 g/dL [facility] RDW 16.3(H) 11.6 - 14.4 % [facility] PLT 235 163 - 369 10*3/uL [facility] MPV 10.2 9.4 - 12.4 fL [facility] Neutrophils % 59.0 36.0 - 66.0 % [facility] Lymphocytes % 27.7 19.0 - 40.0 % [facility] Monocytes % 9.3 4.1 - 12.1 % [facility] Eosinophils % 3.0 0.0 - 3.5 % [facility] Basophils % 0.6 0.0 - 1.0 % [facility] Absolute Neutrophils 5.1 1.4 - 6.6 10*3/uL [facility] Absolute Lymphocytes 2.4 0.8 - 4.0 10*3/uL [facility] Absolute Monocytes 0.8 0.2 - 1.2 10*3/uL [facility] Absolute Eosinophils 0.3 0.0 - 0.4 10*3/uL [facility] Absolute Basophils 0.1 0.0 - 0.1 10*3/uL [facility] 10/10/2024 12:1 3 PM CDT us Minh Bazan MD LAB SEND OUTS Final Result [facility] [place] [address] [place] [address], [place] [phone] * LACTATE DEHYDROGENASE (LD) (10/10/2024 12:13 PM CDT) LDH 147 140 - 271 U/L [facility] Blood 10/10/2024 12:1 3 PM CDT Narrative [facility] 10/10/2024 1:52 PM CDT Release to patient->Immediate Minh Bazan MD CHEMISTRY ORDERABLES Final R esult [facility] [address] [place] [address], [place] [phone] * FERRITIN (10/10/2024 12:13 PM CDT) Ferritin 33 11 - 307 ng/mL [facility] Blood 10/10/2024 12:1 3 PM CDT [facility] - 10/11/2024 2:49 PM CDT Release to patient->Immediate Minh Bazan MD CHEMISTRY ORDERABLES Final R esult [facility] [place] [place] [address], [place] [phone] * (ABNORMAL) CMP (COMPREHENSIVE METABOLIC PANEL) (10/10/2024 12:13 PM CDT) Glucose 146(H) 70 - 105 mg/dL [facility] Blood Urea Nitrogen 15 7 - 25 mg/dL [facility] Creatinine 0.8 0.6 - 1.2 mg/dL [facility] Sodium 140 136 - 145 mEq/L [facility] Potassium 4.3 3.5 - 5.1 mEq/L [facility] Chloride 108(H) 98 - 107 mEq/L [facility] Bicarbonate 23 21 - 31 mEq/L [facility] Total Bilirubin 0.2(L) 0.3 - 1.0 mg/dL [facility] Alk. Phosphatase 89 34 - 104 U/L [facility] Aspartate Aminotransferase 15 13 - 39 U/L [facility] Alanine Aminotransferase 22 7 - 52 U/L [facility] Total Protein 6.5 6.4 - 8.9 g/dL [facility] Albumin 3.7 3.5 - 5.7 g/dL [facility] Calcium 9.2 8.6 - 10.3 mg/dL [facility] Anion Gap 13.3 7.0 - 15.0 mEq/L [facility] Globulin 2.8 2.0 - 3.5 g/dL [facility] EGFR 84 >60 ml/min/1. 73m2 [facility] Comment: This eGFR is calculated using 2020 CKD-EPI Creatinine equation without race modifier based on the NKF-ASN task force recommendations Equation: tFGZ=929*min(SCr/k,1)a*max(SCr/k,1)-1.200*0.9938Age*1.012 (if female), where SCr is serum creatinine, k is 0.7 for females and 0.9 for males, and a is -0.241 for females and -0.302 for males Blood 10/10/2024 12:1 3 PM CDT Narrative [facility] 10/10/2024 1:55 PM CDT Release to patient->Immediate IS THE PATIENT REQUIRED TO BE FASTING FOR 8 HOURS?->No us Minh Bazan MD CHEMISTRY ORDERABLES Final R esult [facility] [place] [address], [place] [phone] from Last 3 Months Insurance MEDICAID [facility] Care Teams Real Time Analyst Relationship Specialty Start Date End Date Mu Oleary PA [address] [place] [address] PCP - General Physician Level Vial Marker 03/21/21 Minh Bazan MD [address] [place] [phone] Consulting Physician Oncology 03/21/21 Sandoval Lacey MD [address] [place] [address] Engineering Drafter Cardiovascular Disease - Cardiology 08/25/21
--- OUTSIDE RECORDS SUMMARY | 2024-11-12 17:19 | XMS_ITS | CONTINUITY OF CARE DOCUMENT ---
Author Name jessica lopez Address Unknown Organization [facility] Address [address] [place] [address] Phone [phone] Care Team Providers Care Dam Worker Name Role Phone Danelle Prieto MD Unavailable UMAIR AMAYA MD Unavailable UMARI AMAYA MD Unavailable [phone] PROBLEMS Condition Status Date Provider Notes HTN [...] Prieto MD Tobacco abuse active Evita Carranza OIL LEASE OPERATOR Lower extremity edema active Danelle jenkins MD Hypercholesterolemia active Danelle potter MD CHF - diastolic active Esperanza Sumner MD COPD active Esperanza Sumner MD Pulmonary embolism active Sandoval Lacey MD Leg pain active Sandoval Lacey MD Palpitations active Sandoval Lacey MD Venous insufficiency active Nina reddy OIL LEASE OPERATOR Abnormal cardiovascular stress test active Nina Brown NP Anemia active Sandoval Lacey MD PUMA- ? active Sandoval Lacey MD Weight gain active Sandoval Lacey MD Numbness in feet active Sandoval Lacey MD ENCOUNTERS Date Type Provider Location Encounter Diag nosis - In-person encounter Office Visit Sandoval Lacey MD [facility] Numbness in feet - In-person encounter Office Visit Sandoval Lacey MD [facility] - In-person encounter Office Visit Sandoval Lacey MD [facility] Weight gain - In-person encounter Office Visit Sandoval Lacey MD [facility] - In-person encounter Office Visit Sandoval Lacey MD [facility] - In-person encounter Office Visit Judie Haq MD [facility] Tobacco abuse - In-person encounter Office Visit Sandoval Lacey MD [facility] PUMA- ? - In-person encounter Office Visit Sandoval Lacey MD [facility] - In-person encounter Office Visit Sandoval Lacey MD [facility] Anemia - In-person encounter Office Visit Sandoval Lacey MD [facility] - In-person encounter Office Visit Elise Arenas MD [facility] Venous insufficiencyAbnormal cardiovascular stress test - In-person encounter Office Visit [facility] Tobacco abusePulmonary embolismLeg painPalpitations - In-person encounter Office Visit Esperanza Sumner MD [facility] CHF - diastolicCOPD - In-person encounter Office Visit Danelle Prieto MD [facility] Family History of Sudden Cardiac : - In-person encounter Office Visit Danelle Prieto MD [facility] - In-person encounter Office Visit Danelle Prieto MD [facility] - In-person encounter Office Visit Danelle Prieto MD [facility] CHF - diastolic - In-person encounter Office Visit Danelle Prieto MD [facility] - In-person encounter Office Visit Danelle Prieto MD [facility] Tobacco abuseLower extremity edemaHypercholesterolemia - In-person encounter Office Visit Danelle Prieto MD [facility] HTNFamily History of CVA or Stroke:Family History of Sudden Cardiac :Chest painBack painWheezing VITAL SIGNS Date Observation Value Provider Body Mass Index (Ratio) 41.02 kg/m2 Nikita Lacey MD blood pressure, diastolic -1 mm[Hg] Laura nkLog blood pressure, systolic 162 mm[Hg] Ligia og blood pressure, diastolic 85 mm[Hg] Tristen [facility] blood pressure, systolic 162 mm[Hg] [facility] pulse rate 74 /min [facility] blood pressure, cuff size regular [facility] oxygen saturation, oximetry 96 % [facility] respiratory rate E&M 18 /min [facility] weight E&M 239 [lb_av] [facility] height E&M 64 [in_i] [facility] Body Mass Index (Ratio) 37.59 kg/m2 Nikita Lacey MD blood pressure, cuff size regular [facility] blood pressure, diastolic 86 mm[Hg] [facility] blood pressure, systolic 156 mm[Hg] Mallory [facility] pulse rate 77 /min Yuri oxygen saturation, oximetry 97 % [facility] respiratory rate E&M 16 /min [facility] weight E&M 219 [lb_av] Yuri height E&M 64 [in_i] Yuir Body Mass Index (Ratio) 37.07 kg/m2 Nikita Lacey MD blood pressure, cuff size regular [facility] blood pressure, diastolic 74 mm[Hg] [facility] blood pressure, systolic 123 mm[Hg] [facility] pulse rate 63 /min [facility] respiratory rate E&M 12 /min [facility] oxygen saturation, oximetry 96 % [facility] weight E&M 216 [lb_av] [facility] height E&M 64 [in_i] [facility] Body Mass Index (Ratio) 33.98 kg/m2 Nikita [...] blood pressure, diastolic 74 mm[Hg] Nickie hayden [place] blood pressure, systolic 118 mm[Hg] Lupillo portillo [place] oxygen saturation, oximetry 95 % Annie [place] pulse rate 86 /min Annie christianson weight E&M 227 [lb_av] Annie Hannah ramonita respiratory rate E&M 16 /min Lucy jansen [place] blood pressure, cuff size large Nickie hayden [place] height E&M 64 [in_i] Annie Hannah ramonita Body Mass Index (Ratio) 39.30 kg/m2 Ren Mcneal respiratory rate E&M 16 /min Dalila Jax blood pressure, cuff size regular Deb montoya Jax blood pressure, diastolic 72 mm[Hg] Deb hammondsag Cmaara blood pressure, systolic 118 mm[Hg] Paolo johanne Camara oxygen saturation, oximetry 98 % Dalilaag Camara pulse rate 76 /min Dalilaag Camara weight E&M 229 [lb_av] Dalilaag Camara height E&M 64 [in_i] Dalila Camara Body Mass Index (Ratio) 42.05 kg/m2 Nikita Lacey MD blood pressure, cuff size large Hnas Gaytan blood pressure, diastolic 78 mm[Hg] Hans [...] Body Mass Index (Ratio) 40.16 kg/m2 Nikita Lacye MD blood pressure, cuff size regular Gustabo Blackmanby blood pressure, diastolic 70 mm[Hg] Kr isty Javier blood pressure, systolic 140 mm[Hg] Kri brock Javier oxygen saturation, oximetry 95 % Jadyn Herrera pulse rate 80 /min Jadyn Javier respiratory rate E&M 19 /min Jadyn [place] weight E&M 234 [lb_av] Jadyn [place] blood pressure, resting No Angusabbey duran Javier height E&M 64 [in_i] Jadyn [place] Body Mass Index (Ratio) 41.71 kg/m2 Nikita [...] Nikita Lacey MD blood pressure, resting Yes [facility] shireen Gallagherford blood pressure, diastolic 64 mm[Hg] kana Gallagherford blood pressure, systolic 136 mm[Hg] [facility] pulse rate 90 /min Aysha Gallagher [...] /min Tru Szymans[place] pulse rate 65 /min [place] weight E&M 221 [lb_av] [place] height E&M 64 [in_i] Ilda Mejia [...] Rosi Mice lder height E&M 64 [in_i] Rosi Mice lder Body Mass Index (Ratio) 39.82 kg/m2 Jordy Prieto MD blood pressure, diastolic 80 mm[Hg] Ki lleen Szymanski blood pressure, systolic 122 mm[Hg] Malik dey [place] oxygen saturation, oximetry 97 % [place] respiratory rate E&M 16 /min Tru [place] pulse rate 56 /min [place] weight E&M 232 [lb_av] Tru [place] height E&M 64 [in_i] [place] Body Mass Index (Ratio) 41.02 kg/m2 [...] /min Rosi santanaer weight E&M 239 [lb_av] Rosi Hank santanaer height E&M 64 [in_i] Rosi [...] 0-149 3 cholesterol, serum 102 mg/dL [facility] [phone]/07/0 3 calcium, serum 8.7 mg/dL [facility] 8.7-10.2 3 carbon dioxide, venous blood 21 mmol/L [facility] 20-29 3 chloride, serum 106 mmol/L [facility] 96-106 3 potassium, serum 4.3 mmol/L [facility] 3.5-5.2 3 sodium, serum 140 mmol/L [facility] 484-144 5610/07/0 3 urea nitrogen/creatinine ratio, serum 22 [facility] [...] Estab. 3 platelet count 304 X10E3/UL [facility] 044-724 0014/07/0 3 red blood cell distribution width 18.1 [...] 3.5-5.2 2 sodium, serum 141 mmol/L [facility] 839-630 9177/08/2 2 urea nitrogen/creatinine ratio, serum 16 [facility] [...] High 2 platelet count 207 X10E3/UL [facility] 579-208 9978/08/2 2 red blood cell distribution width 14.2 % [facility] 2 mean corpuscular hemoglobin concentration, RBC 31.9 G/DL [facility] 31.5-35.7 2 mean corpuscular hemoglobin, RBC [facility] 26.6-33.0 2 mean corpuscular volume, RBC 84 fL [facility] 79-97 2 hematocrit, blood 42.6 % [facility] 34.0-46.6 2 hemoglobin, blood 13.6 g/dL [facility]15.9 2 erythrocyte (RBC) count 5.10 X10E6/UL [...] 3.5-5.2 8 sodium, serum 138 mmol/L [facility] 088-318 2464/08/1 8 urea nitrogen/creatinine ratio, serum 15 [facility] [...] [facility] 0-149 cholesterol, serum 112 mg/dL [facility] 809-879 6300/12/0 9 alanine aminotransferase (SGPT), serum 15 1/L [...] 3.5-5.2 High sodium, serum 141 mmol/L [facility] 109-206 8517/12/0 9 urea nitrogen/creatinine ratio, serum 12 [facility] [...] [facility] 3.5-5.1 sodium, serum 141 mmol/L [facility] 135-234 1937/09/1 creatinine, serum 0.8 mg/dL [facility] 0.5-0.9 carbon [...] High platelet count 274 THOUSAND/ UL [facility] [phone]/09/1 mean corpuscular volume, RBC 92 fL [facility]100 mean corpuscular hemoglobin concentration, RBC 31 G/DL [facility] 31-38 5 mean corpuscular hemoglobin, RBC 28 pg [facility] 25-35 5 hematocrit, blood 44 % [facility] 35-55 hemoglobin, blood 13.5 g/dL [facility] 11.5-16.5 erythrocyte count, whole blood 4.8 MILLION/U L [facility] 3.5-5.5 HISTORY OF MEDICATION USE Medication Status [...] three times a day - Evita Carranza OIL LEASE OPERATOR SOCIAL HISTORY Date Observation Value Provider alcohol [...] is a former smoker. Evita Mondragon Bertoradha OIL LEASE OPERATOR number of years as a smoker 35 a Evita Mondragon Tere OIL LEASE OPERATOR smoking history, tot al pack/day 1 Evitahanna Carranza OIL LEASE OPERATOR cigarette use yes Evita Mondragon Sarah lle OIL LEASE OPERATOR smoking status Former smoker Evita tarangoe OIL LEASE OPERATOR social history reviewed E&M revi ewed - [...] smoking history, tot al pack/day 1 ppd [place] cigarette use yes [place] smoking status Current every day smoker Daja dillon Szymanski number of grandchildren Danelle Harley social history reviewed E&M revi ewed - no changes required Aston Harley social history E&M S moking History: P atient currently smokes every day. Aston Harley alcohol use no Rosi Mckinney lder number of years as a smoker 35 a Rois Hailestoneer smoking history, tot al pack/day 1 ppd Rosi Hailestoneer cigarette use yes Rosi Haile elder smoking status Current every day smoker K felisa Hunterer social history reviewed E&M revi ewed - no changes required Danelle Prieto MD alcohol use no [place] number of years as a smoker 35 a [place] smoking history, tot al pack/day [facility] yes [place] smoking status Current every day smoker [...] years as a smoker 35 a Rosi Benavidescorbnikandy smoking history, tot al pack/day 1 ppd [...] Payer name Policy type / Coverage type Rodessa [employer] party ID [place] MEDICAID (2) Medicaid [id number] ADVANCE DIRECTIVES Name Date DISCUSSED - NO DECISION MADE TREATMENT PLAN Date Name Performer [id number],C,S he has gained 18 lbs since she was last seen in October. She would like Ozempic for weight loss, has been on it in the past and it helped her lose over 20lbs I have written perscription for Ozempic as I believe it would be beneficial for her exercise tolerance to lose weight P CP should consult for oil heaterman management Sandoval Lacey MD [id number],C, B P today: 123/74 P rior BP: 135/81 (11/06/2022) Labs Reviewed: C reat: 0.83 (01/25/2021) C hol: 102 (01/25/2021) HDL: 22 (01/25/2021) Her updated medication list for this problem includes: Losartan 100 Mg Tablet (Losartan) ..... Take 1 tablet once a day Lasix 40 Mg Tablet (Furosemide) ..... Take one tab (40mg) mwfsun, 1.5 tablet (=60mg) on tthsat. Sandoval Lacey MD [id number],C,suggest she s top tizanidine Sandoval Lacey MD [id number],C,S he has gained 18 lbs since she was last seen in October. She would like Ozempic for weight loss, has been on it in the past and it helped her lose over 20lbs I have written perscription for Ozempic as I believe it would be beneficial for her exercise tolerance to lose weight Sandoval Lacey MD [id number],S,On xarelto Us ozzy Lacey MD [id number],C,C lass 2, appears compensated. H er updated medication list for this problem includes: Losartan 100 Mg Tablet (Losartan) ..... Take 1 tablet once a day Lasix 40 Mg Tablet (Furosemide) ..... Take one tab (40mg) mwfsun, 1.5 tablet (=60mg) on tthsat. Sandoval Lacey MD [id number],S, B P today: 135/81 P rior BP: 118/74 (05/08/2022) Labs Reviewed: C reat: 0.83 (01/25/2021) C hol: 102 (01/25/2021) HDL: 22 (01/25/2021) Her updated medication list for this problem includes: Losartan 100 Mg Tablet (Losartan) ..... Take 1 tablet once a day Lasix 40 Mg Tablet (Furosemide) ..... Take one tab (40mg) mwfsun, 1.5 tablet (=60mg) on tthsat. Sandoval Lacey MD [id number],S, Sandoval Lacey MD [id number],S,stable Sandoval Lacey MD [id number],S, B P today: 118/74 P rior BP: 118/72 (04/16/2022) Labs Reviewed: C reat: 0.83 (01/25/2021) C hol: 102 (01/25/2021) HDL: 22 (01/25/2021) Sandoval Lacey MD [id number],S,S eems atypcial and with the negative stress test I would not pursue a cardiac cath. Possibly can be sent to a GI doctor. Sandoval Lacey MD [id number],S,T he Patient was reencouraged to stop smoking. We'll' set her up for PFTs and a 6 minute walk test to evaluate for a pulmonary cause of her SOB. Evita Giancarlo Carranza NP [id number],S, c ontinue compression socks Evita Mondragon Tere PADILLA [id number],S, E xertional dyspnea persists. Last stress test in November 2020 was negative for ischemia, but given her symptoms she'd benefit from a repeat stress test and echo. Evita Mondragon Tere PADILLA [id number],B, B P today: 118/72 P rior BP: 147/78 (03/05/2022) Her updated medication list for this problem includes: Losartan 100 Mg Tablet (Losartan) ..... Take 1 tablet once a day Lasix 40 Mg Tablet (Furosemide) ..... Take one tab (40mg) mwfsun, 1.5 tablet (=60mg) on tthsat. Evitaflex Carranza NP [id number],S, Evita garcia NP [id number],S, Sandoval Lacey MD [id number],C,S OB persists and worsening, cannot go about routine tasks without getting SOB. Sandoval Lacey MD [id number],C,T oe numbness, leg and knee pain, cramps. Likely neuropathy. We will stop gabapentin as it provides no benefit. Sandoval Lacey MD [id number],W,P robalby due to pain in the legs. B P today: 180/90 P rior BP: 140/70 (04/07/2021) Labs Reviewed: C reat: 0.83 (01/25/2021) C hol: 102 (01/25/2021) HDL: 22 (01/25/2021) Sandoval Lacey MD [id number],C,mild Sandoval solano MD [id number],C,Quit smoking. Sandoval Lacey MD [id number],C,? Sandoval arias MD [id number],C,I am unsure what the reason is for her leg pain, but I am not sure it is vascular. Neuropathy? Sandoval Lacey MD [id number],C, B P today: 140/70 P rior BP: 160/80 (01/24/2021) Labs Reviewed: C reat: 0.83 (01/25/2021) C hol: 102 (01/25/2021) HDL: 22 (01/25/2021) Her updated medication list for this problem includes: Losartan 100 Mg Tablet (Losartan) ..... Take 1 tablet once a day Lasix 40 Mg Tablet (Furosemide) ..... Take one tab (40mg) mwfsun, 1.5 tablet (=60mg) on tthsat. Sandoval Lacey MD [id number],S,c ontinue compression socks, and await how her sx behave once she has received IV iron infusions. Sandoval Lacey MD [id number],S,S he received blood and iron pills, she is apparenlty still anemic and so will await further instructions from the manager rail she has seen. Sandoval Lacey MD [id number],S,will recheck Sandoval Lacey MD [id number],S, Sandoval Lacey MD [id number],C,p robably from the pain B P today: 160/80 P rior BP: 130/70 (12/27/2020) Labs Reviewed: C reat: 0.91 (03/16/2020) C hol: 112 (07/03/2017) HDL: 27 (07/03/2017) Sandoval Lacey MD [id number],C,on xarelto Us ozzy Lacey MD [id number],W,i will stop her lipitor and give her [...] lose weight P CP should consult for oil heaterman management Sandoval Lacey MD Cardiology: B P [...] a repeat stress test and echo. Evita Carranza NP Cardiology: B P today: 118/72 [...] so will await further instructions from the manager rail she has seen. Sandoval Lacey MD Cardiology:will [...] (Losartan potassium) ..... Take one tablet daily Sandoval Lacey MD Cardiology: B P today: 136/64 [...] night Orders: C OMPREHENSIVE METABOLIC PANEL, W/EGFR (50997) P ROBNP, N TERMINAL (58611) C BC (H/H, RBC, INDICES, WBC, PLT) [...] P FConsult : The FEV1, FVC and GUR97-88% are reduced but the FEV1/FVC ratio is [...] day at night O rders: E KG (CPT-37093) C OMPREHENSIVE METABOLIC PANEL, W/EGFR (94567) P ROBNP, N TERMINAL (40537) C BC (H/H, RBC, INDICES, WBC, PLT) [...] One pill twice a day Orders: EKG (CPT-28658) 9 9215 HIGH Complex (CPT-85983) C omplete Echo (CPT-39782) F VC - 26053 (49257) F RC - 70532 (32503) D LCO - 87318 (38669) Anatoly Gil Electrophysiology fo llow up : H er updated medication list for this problem includes: Lasix 40 Mg Oral Tablet (Furosemide) ..... One tablet daily Metoprolol Tartrate 25 Mg Oral Tablet (Metoprolol tartrate) ..... One pill twice a day Cozaar 50 Mg Oral Tablet (Losartan potassium) ..... One a day at night Orders: 9 9215 HIGH Complex (CPT-96070) C omplete Echo (CPT-40802) F VC - 08644 (57343) F RC - 47174 (55408) D LCO - 60466 (37794) Anatoly Gil Electrophysiology follow up Alejandro Gil [...] Electrophysiology fo llow up:Orders: F VC - 97613 (57767) F RC - 39465 (77598) D LCO - 06698 (39851) Aston Harley Electrophysiology fo llow up:Advised patient [...] chedule Followup (*) 9 9214 MOD Complex (CPT-33453) Her updated medication list for this problem includes: Metoprolol Tartrate 25 Mg Oral Tablet (Metoprolol tartrate) ..... One pill twice a day Aston Harley Electrophysiology fo llow up:Echo today 04/08/18 shows EF 60%. Orders: E KG (CPT-68363) S chedule Followup (*) 9 9214 MOD Complex (CPT-50107) Her updated medication list for this problem [...] a day Orders: 9 9215 HIGH Complex (CPT-01134) C omplete Echo (CPT-86408) C OMPREHENSIVE METABOLIC PANEL, W/EGFR (25325) P ROBNP, N TERMINAL (36510) S chedule Followup (*) Aston Harley Electrophysiology [...] adenoside stress test done and echo. Yari Pinedo Electrophysiology Ne w Patient: B P today: 118/80 Yari Khris Date Name CRP, high sensitivit y Microalb/Creatinine Urine, Random PROBNP, N TERMINAL BASIC METABOLIC PANE L W/EGFR Stress Regadenoson Complete Echo Ambulatory Oximetry 6 minute walk test DLCO - 19023 FRC - 49018 FVC - 98987 Sleep Study Home PROTHROMBIN TIME WIT H INR LIPID PANEL CBC (INCLUDES DIFF/P LT) BASIC METABOLIC PANE L W/EGFR Holter Monitor 24 Hr Venous Doppler Bilat eral LE - Reflux Arterial Duplex Bi-L ower EX Stress Regadenoson TSH, free T4, total T3 CBC (H/H, RBC, INDIC ES, WBC, PLT) PROBNP, N TERMINAL COMPREHENSIVE METABO LIC PANEL, W/EGFR DLCO - 81894 FRC - 80425 FVC - 93404 Complete Echo DLCO - 39489 FRC - 32491 FVC - 93334 PROBNP, N TERMINAL COMPREHENSIVE METABO LIC PANEL, W/EGFR Complete Echo Complete Echo DLCO - 05128 FRC - 26147 FVC - 38956 LIPID PANEL COMPREHENSIVE METABO LIC PANEL, W/EGFR LIPID PANEL CBC (H/H, RBC, INDIC ES, WBC, PLT) COMPREHENSIVE METABO LIC PANEL, W/EGFR Arterial Duplex Bi-L ower EX Aorta Duplex Ultraso und (AAA) DLCO - 43966 FRC - 58536 FVC - 41081 STR - Adenosine Complete Echo HISTORY OF PROCEDURES Procedure Date Procedure Name Provider Procedure Notes S tatus EKG Sandoval Lacey MD completed EKG Sandoval Lacey MD completed 6 minute walk test Danelle fowler MD completed Spirometry Danelle arreola MD completed FVC / MVV - 97240 Danelle jenkins MD completed BLOOD COUNT HEMOGLOBIN Danelle gonzalez MD completed FRC - 52941 Danelle arreola MD completed SpO2 w/o 6min walk/titration Danelle Prieto MD completed SVC - 45126 Danelle arreola MD completed DLCO - 86072 Danelle arreola MD completed EKG Sandoval Lacey MD completed Holter, 24 or 48 Sandoval Lacey MD com pleted EKG Danelle arreola MD completed FVC / MVV with bronchodilator - 01597 Danelle Prieto MD completed BLOOD COUNT HEMOGLOBIN Danelle gonzalez MD completed FRC - 59347 Danelle arreola MD completed SpO2 w/o 6min walk/titration Danelle Prieto MD completed DLCO - 13471 Danelle arreola MD completed EKG Danelle arreola MD completed FVC / MVV with bronchodilator - 23101 Danelle Prieto MD completed BLOOD COUNT HEMOGLOBIN Danelle gonzalez MD completed FRC - 88529 Danelle arreola MD completed SpO2 w/o 6min walk/titration Danelle Prieto MD completed DLCO - 41111 Danelle arreola MD completed Schedule Followup Danelle jenkins MD in 1 year completed EKG Danelle arreola MD completed Schedule Followup Danelle jenkins MD in 1 wk completed EKG Danelle arreola MD completed EKG Danelle arreola MD completed SNOMED-CT: [id number] Current Medications Documented Danelle Prieto MD completed Schedule Followup Danelle jenkins MD 3 months completed EKG Danelle arreola MD completed SNOMED-CT: [id number] Current Medications Documented Danelle Prieto MD completed Stress EKG Aris Mac MD complete d Regadenoson, 4 units Danelle tai MD completed Cardiolite, 2 units Danelle garza MD completed SPECT Images Elise Arenas MD com pleted FVC / MVV with bronchodilator - 19796 Danelle Prieto MD completed BLOOD COUNT HEMOGLOBIN Danelle gonzaelz MD completed FRC - 38617 Danelle arreola MD completed SpO2 - 01298 Danelle arreola MD completed DLCO - 56415 Danelle arreola MD completed EKG Danelle arreola MD completed SNOMED-CT: [id number] Current Medications Documented Danelle Prieto MD completed
--- OUTSIDE RECORDS SUMMARY | 2024-11-12 17:19 | XMS_ITS | Clinical Summary ---
Author Organization [facility] Address [address] [place] [address] Care Team Providers Care Gas Derrick Operator Name Role Phone Unavailable Primary Care Provider Unavailabl e Source Comments [facility],non-owned Affiliates and Associated Physician Practices is amultiple site organization consisting of ambulatory clinics and hospital sitesin [place], [place], [place] and [place]. This disclosure is being madepursuant to the Care Everywhere program and may not contain all information available regarding this patient. 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
--- OUTSIDE RECORDS SUMMARY | 2024-11-12 17:19 | XMS_ITS | Continuity of Care Document ---
Author Organization [facility] Address [address] [facility] [address] [place] [address] Phone Care Team Providers Care Energy Professional Name Role Phone Cecy Farmer MD Unavailable [...] [facility], [address] [facility] [address], [place], [place], [id number], tel:[phone] [facility] No Information [address]. [address], [place], [address], [place]. tel:[phone] [facility], [address] [place] [address], [id number], tel:[phone] [facility] No Information 3 Darian Cheshil. [address], [place], [address], [place]. tel:[phone] New (Level 4) OFFICE/OUTPA TIENT VISIT [facility], [address] [place] [address], [id number], [place] tel:[phone] [facility] allergies and asthma (chief complaint) Body mass index (BMI) 36.0-36.9, adultEssential (primary) hypertensionSeve re persistent asthmaChronic rhinitis 3 Darian Cheshil. [address], [place], [address], [place]. tel:[phone] Referring Provider: Jax Mixon, [address] [facility] [address], [address]. tel:[phone] Family History Family Member Type Diagnosis Age At Onset Mother Problem Asthma Problem No family history of Allergi c rhinitis Payers Payer name Insurance type Covered constitution party ID Demi friedman(tone Mccracken [id number] Social History Type Description Quantity Date Captured Comments Alcohol Use Details Unknown Caffeine Use Details Unknown Tobacco Use Status Smoking Status No Information Sex Female Chief Complaint And Reason For Visit No Information Reason For Referral Reason For Referral No Information Plan Of Treatment Date Type Action Status Future Order: Lab Order CBC With Differential ([id number]), Sent on: Sent Future Order: Lab Order Immunogl obulin E, Total ([id number]), Sent on: Sent History Of Present Illness [...]
[2024-11-12 17:22] VITALS: BP 156/78; PULSE 82; RESP 18; O2SAT 98
== END 2024-11-12 18:06 | disposition home or self-care (01) ==
PROVIDERS: Emergency Provider Emergency Medicine; PCP Internal Medicine Gastroenterology
DX: I50.9 Heart failure, unspecified (principal); S09.90XA Unspecified injury of head, initial encounter; J44.9 Chronic obstructive pulmonary disease, unspecified; F17.210 Nicotine dependence, cigarettes, uncomplicated; Z79.899 Other long term (current) drug therapy; Z79.01 Long term (current) use of anticoagulants; W22.03XA Walked into furniture, initial encounter
CPT/HCPCS: 70450; 99284

== ENCOUNTER 2025-01-08 14:36 | Outpatient (CLI) | payer OTHER, SELFPAY ==
--- NOTE | ~2025-01-08 | DEXA_ITS ---
Bone Density Report Name: SHAWN BECKER I Age: 59 Sex: Female Ethnicity: White Date of : 1965 Indication: postmenopausal; screening for osteoporosis; height loss; asthma or emphysema; Referring Provider: ARIADNA MCCAIN Study: Bone densitometry was performed. Exam Date: January 08, 2025 Accession number: [id number] Bone Density: Region BMD T-score Z-score Classification AP Spine(L1-L4) 0.826 -2.0 -0.5 Osteopenia Femoral Neck (Left) 0.682 -1.5 -0.1 Osteopenia Total Hip (Left) 1.001 0.5 1.5 Normal Femoral Neck (Right) 0.738 -1.0 0.4 Normal Total Hip (Right) 0.915 -0.2 0.8 Normal Total Hip Mean 0.958 0.2 1.2 Normal World Health Organization criteria for BMD impression classify patients as: Normal (T-score at or above -1.0), Osteopenia (T-score between -1.0 and -2.5), or Osteoporosis (T-score at or below -2.5). 10-year Fracture Risk(1): Major Osteoporotic Fracture 7.1% Hip Fracture 1.0% Reported Risk Factors: [place] (), Neck BMD=0.682, BMI=46.5, smoking (1) FRAX(R) Version 3.08. Fracture probability calculated for an untreated patient. Fracture probability may be lower if the patient has received treatment. Clinical Information Provided by Patient: Smokes Has used the following medications: Vitamin D Has the following medical conditions: Asthma or Emphysema Patient maximum height was 63.0 Menopause Age: 38 No regular weight bearing exercise Drinks caffeinated beverages Onset of menses at age 10 Number of children 3 Impression: The patient has low bone mass, based on the Total Spine T-score. The patient has an estimated ten-year risk of hip fracture of 1% and an estimated ten-year risk of major fracture of 7.1%, based on the WHO FRAX algorithm. The patient has risk factors, including: smoking. Discussion: BONE DENSITY IS LOW AT ONE OR MORE SKELETAL SITES. This patient's lowest T-score is low at one or more skeletal sites. It meets the World Health Organization's (WHO) criteria for ?low bone mass? (T-score between -1.0 and -2.5). The patient's 10-year risk of fracture as calculated by FRAX is less than the threshold where pharmacological therapy is recommended by the National Osteoporosis Foundation (NOF). However, all treatment decisions require clinical judgment and consideration of individual patient factors, including patient preferences, comorbidities, previous drug use, risk factors not captured in the FRAX model (e.g., frailty, falls, vitamin D deficiency, increased bone turnover, interval significant decline in bone density) and possible under or overestimation of fracture risk by FRAX. The patient should follow a healthful lifestyle (good nutrition with adequate calcium and vitamin D, and appropriate weight-bearing exercise). Follow-Up: Consider repeating this study in 2 to 3 years to reassess this patient's status, or sooner if there is some new clinical indication. Reported by: MARIANA on 01/08/2025 3:20:00 PM. Reviewed, dictated and finalized at location A.
--- OUTSIDE RECORDS SUMMARY | 2025-01-08 15:45 | XMS_ITS | Encounter Summary ---
Author Organization [facility] Address [address] [place] [address] Phone Care Team Providers Care Sound Tester Name Role Phone Mu Oleary Primary Care Provider Minh Bazan MD Unavailable Sandoval Lacey MD Unavailable Encounter Details Date Type Department Care Team (Late st Contact Info) Description 10/02/2021 Telephone [facility] [address] [address] Minh Bazan MD [address] [address] Social History Tobacco Use Types [...] COVID-19? No / Unsure 09/05/2021 12:26 PM PERCUSSION INSTRUCTOR documented as of this encounter Miscellaneous Notes * Telephone Encounter - Annie Barnes - 10/02/2021 3:47 PM CST Pt tested positive for covid on 09/30/21. Rescheduled appt to 10/16/21 USSION INSTRUCTOR documented in this encounter Plan of Treatment Upcoming Encounters Date Type Department Care Team (Late st Contact Info) Description 03/09/2025 10:30 AM CDT Office Visit [facility] [address] [place] [phone] Minh Bazan MD [facility] [address] [id number] documented as of this encounter Visit Diagnoses Not on filedocumented in this encounter Additional Health Concerns Assessment Noted Time PHQ-9 Depression Total Score: 0 05/16/20 21 10:46 AM CDT documented as of this encounter Care Teams Sound Tester Relationship Specialty Start Date End Date Mu Oleary PA [address] [place] [address] PCP - General Physician Resaw Tailer 03/21/21 Minh Bazan MD [address] [place] [phone] Consulting Physician Oncology 03/21/21 Sandoval Lacey MD [address] [place] [address] Transportation Operations Manager Cardiovascular Disease - Cardiology 08/25/21 documented as of this encounter
--- OUTSIDE RECORDS SUMMARY | 2025-01-08 15:45 | XMS_ITS | CONTINUITY OF CARE DOCUMENT ---
Author Name jessica lopez Address Unknown Organization [facility] Address [address] [address] [place] [address] Phone [phone] Care Team Providers Care Engineering Test Specialist Name Role Phone Danelle Prieto MD Unavailable UMAIR AMAYA MD Unavailable UMAIR AMAYA MD [...] Prieto MD Tobacco abuse active Evita Carranza TIRE FABRIC INSPECTOR Lower extremity edema active Danelle jenkins MD Hypercholesterolemia active Danelle potter MD CHF - diastolic active Esperanza Sumner MD COPD active Esperanza Sumner MD Pulmonary embolism active Sandoval Lacey MD Leg pain active Sandoval Lacey MD Palpitations active Sandoval Lacey MD Venous insufficiency active Nina reddy TIRE FABRIC INSPECTOR Abnormal cardiovascular stress test active Nina Brown NP Anemia active Sandoval Lacey MD PUMA- ? active Sandoval Lacey MD Weight gain active Sandoval Lacey MD Numbness in feet active Sandoval Lacey MD ENCOUNTERS Date Type Provider Location Encounter Diag nosis - In-person encounter Office Visit Sandoval Lacey MD [place] [facility] Numbness in feet - In-person encounter Office Visit Sandoval Lacey MD [place] [facility] - In-person encounter Office Visit Sandoval Lacey MD [place] [facility] Weight gain - In-person encounter Office Visit Sandoval Lacey MD [place] [facility] - In-person encounter Office Visit Sandoval Lacey MD [place] [facility] - In-person encounter Office Visit Judie Haq MD [place] [facility] Tobacco abuse - In-person encounter Office Visit Sandoval Lacey MD [place] [facility] PUMA- ? - In-person encounter Office Visit Sandoval Lacey MD [place] [facility] - In-person encounter Office Visit Sandoval Lacey MD [place] [facility] Anemia - In-person encounter Office Visit Sandoval Lacey MD [place] [facility] - In-person encounter Office Visit Elise Arenas MD [place] [facility] Venous insufficiencyAbnormal cardiovascular stress test - In-person encounter Office Visit [facility] Tobacco abusePulmonary embolismLeg painPalpitations - In-person encounter Office Visit Esperanza Sumner MD [place] [facility] CHF - diastolicCOPD - In-person encounter Office Visit Danelle Prieto MD [place] [facility] Family History of Sudden Cardiac : - In-person encounter Office Visit Danelle Prieto MD [place] [facility] - In-person encounter Office Visit Danelle Prieto MD [place] [facility] - In-person encounter Office Visit Danelle Prieto MD [place] [facility] CHF - diastolic - In-person encounter Office Visit Danelle Prieto MD [place] [facility] - In-person encounter Office Visit Danelle Prieto MD [place] [facility] Tobacco abuseLower extremity edemaHypercholesterolemia - In-person encounter Office Visit Danelle Prieto MD [place] [facility] HTNFamily History of CVA or Stroke:Family History of Sudden Cardiac :Chest painBack painWheezing VITAL SIGNS Date Observation Value Provider Body Mass Index (Ratio) 41.02 kg/m2 Nikita Lacey MD blood pressure, diastolic -1 mm[Hg] Laura nkLog blood pressure, systolic 162 mm[Hg] Ligia og blood pressure, diastolic 85 mm[Hg] Tristen [facility] blood pressure, systolic 162 mm[Hg] [facility] pulse rate 74 /min [facility] blood pressure, cuff size regular [facility] oxygen saturation, oximetry 96 % [facility] respiratory rate E&M 18 /min [facility] weight E&M 239 [lb_av] [facility] height E&M 64 [in_i] [facility] Body Mass Index (Ratio) 37.59 kg/m2 Nikita Lacey MD blood pressure, cuff size regular [facility] blood pressure, diastolic 86 mm[Hg] [facility] blood pressure, systolic 156 mm[Hg] [facility] pulse rate 77 /min Yuri oxygen saturation, oximetry 97 % [facility] respiratory rate E&M 16 /min [facility] weight E&M 219 [lb_av] Yuri height E&M 64 [in_i] Yuri Body Mass Index (Ratio) 37.07 kg/m2 Nikita Lacey MD blood pressure, cuff size regular [facility] blood pressure, diastolic 74 mm[Hg] [facility] blood pressure, systolic 123 mm[Hg] [facility] pulse rate 63 /min [facility] respiratory rate E&M 12 /min [facility] oxygen saturation, oximetry 96 % [facility] weight E&M 216 [lb_av] [facility] height E&M 64 [in_i] [facility] Body Mass Index (Ratio) 33.98 kg/m2 [...] blood pressure, diastolic 74 mm[Hg] Nickie hayden [place] blood pressure, systolic 118 mm[Hg] Lupillo portillo [place] oxygen saturation, oximetry 95 % Annie [place] pulse rate 86 /min Annie christianson weight E&M 227 [lb_av] Annie Hannah ramonita respiratory rate E&M 16 /min Lucy jansen [place] blood pressure, cuff size large Nickie hayden [place] height E&M 64 [in_i] Annie Hannah ramonita [...] blood pressure, systolic 140 mm[Hg] Kri brock [place] oxygen saturation, oximetry 95 % Jadyn Herrera pulse rate 80 /min Jadyn Javier respiratory rate E&M 19 /min Jadyn [place] weight E&M 234 [lb_av] Jadyn Javier blood pressure, resting No Angusabbey duran Javier height E&M 64 [in_i] Jadyn Javier Body Mass Index (Ratio) 41.71 kg/m2 Nikita [...] Torres blood pressure, systolic 130 mm[Hg] Ginette elivna Brian oxygen saturation, oximetry 98 % Ilda Torres respiratory rate E&M 16 /min Ilda Torres pulse rate 77 /min Ilda Campbel l weight E&M 246 [lb_av] Ilda Campbel l height E&M 64 [in_i] Ilda Campbel l Body Mass Index (Ratio) 41.19 kg/m2 Nikita Lacey MD blood pressure, resting Yes [facility] shireen Gallagherford blood pressure, diastolic 64 mm[Hg] kana Gallagherford blood pressure, systolic 136 mm[Hg] [facility] Funk pulse rate 90 /min Aysha Gallagher [...] yissel Szymanski oxygen saturation, oximetry 97 % Sullivan Szymanski respiratory rate E&M 16 /min Tru Szymanski pulse rate 65 /min Tru Szymanski weight E&M 221 [lb_av] Tru Szymanski height E&M 64 [in_i] Ilda Mejia [...] dey Szymanski oxygen saturation, oximetry 97 % Tru Szymanski respiratory rate E&M 16 /min Tru Szymanski pulse rate 56 /min Sullivan Szymanski weight E&M 232 [lb_av] Tru Szymanski height E&M 64 [in_i] Tru Szymanski Body Mass Index (Ratio) 41.02 kg/m2 [...] 0-149 3 cholesterol, serum 102 mg/dL [facility] 322-961 9200/07/0 3 calcium, serum 8.7 mg/dL [facility] 8.7-10.2 3 carbon dioxide, venous blood 21 mmol/L [facility] 20-29 3 chloride, serum 106 mmol/L [facility] 96-106 3 potassium, serum 4.3 mmol/L [facility] 3.5-5.2 3 sodium, serum 140 mmol/L [facility] 151-876 2895/07/0 3 urea nitrogen/creatinine ratio, serum 22 [facility] [...] Estab. 3 platelet count 304 X10E3/UL [facility] 422-372 0263/07/0 3 red blood cell distribution width 18.1 [...] 3.5-5.2 2 sodium, serum 141 mmol/L [facility] 267-882 3451/08/2 2 urea nitrogen/creatinine ratio, serum 16 [facility] [...] High 2 platelet count 207 X10E3/UL [facility] 834-319 8924/08/2 2 red blood cell distribution width 14.2 % [facility]15[facility] 2 mean corpuscular hemoglobin concentration, RBC 31.9 G/DL [facility] 31.5-35.7 2 mean corpuscular hemoglobin, RBC 26.7 [facility] 26.6-33.0 2 mean corpuscular volume, RBC 84 fL [facility] 79-97 2 hematocrit, blood 42.6 % [facility] 34.0-46.6 2 hemoglobin, blood 13.6 g/dL [facility] 11.[facility]-15.9 2 erythrocyte (RBC) count 5.10 [...] 3.5-5.2 8 sodium, serum 138 mmol/L [facility] 501-147 1508/08/1 8 urea nitrogen/creatinine ratio, serum 15 [facility] [...] [facility] 0-149 cholesterol, serum 112 mg/dL [facility] 791-947 9015/12/0 9 alanine aminotransferase (SGPT), serum 15 1/L [...] 3.5-5.2 High sodium, serum 141 mmol/L [facility] 530-917 3596/12/0 9 urea nitrogen/creatinine ratio, serum 12 [facility] [...] [facility] 3.5-5.1 sodium, serum 141 mmol/L [facility] 031-146 9763/09/1 creatinine, serum 0.8 mg/dL [facility] 0.5-0.9 carbon [...] High platelet count 274 THOUSAND/ UL [facility] 998-598 2236/09/1 mean corpuscular volume, RBC 92 fL [facility] 75-100 mean corpuscular hemoglobin concentration, RBC 31 G/DL [facility] 31-38 5 mean corpuscular hemoglobin, RBC 28 pg [facility] 25-35 5 hematocrit, blood 44 % [facility] 35-55 hemoglobin, blood 13.5 g/dL [facility] 11.5-16.5 erythrocyte count, whole blood 4.8 MILLION/U L [facility] 3.5-5.5 HISTORY OF MEDICATION USE Medication [...] three times a day - Evita Carranza TIRE FABRIC INSPECTOR SOCIAL HISTORY Date Observation Value Provider alcohol [...] is a former smoker. Evita Mondragon Bertoradha TIRE FABRIC INSPECTOR number of years as a smoker 35 a Evita Mondragon Tere TIRE FABRIC INSPECTOR smoking history, tot al pack/day 1 Evitahanna Carranza TIRE FABRIC INSPECTOR cigarette use yes Evita Mondragon Sarah lle TIRE FABRIC INSPECTOR smoking status Former smoker Evita tarangoe TIRE FABRIC INSPECTOR social history reviewed E&M revi ewed - [...] ppd Jadyn Blackmanby cigarette use yes Jadyn [place] smoking status Former smoker Jadyn Blackmanby smoking [...] ation, patient education and counseling yes Anatoly Gli social history reviewed E&M revi ewed - [...] every day. Aston Cherri alcohol use no Sullivan Szymanski number of years as a smoker 35 a Sullivan Szymanski smoking history, tot al pack/day 1 ppd Tru Szymanski cigarette use yes Tru Szymanski smoking status Current every day smoker [...] required Danelle Prieto MD alcohol use no Sullivan Szymanski number of years as a smoker 35 a Sullivan Szymanski smoking history, tot al pack/day 1 [facility] yes Tru Szymanski smoking status Current every day smoker [...] status Current every day smoker K felisa Ajnu FAMILY HISTORY Family Member Condition Father Family History of Yeh dden Cardiac : Mother Family History of Yeh dden Cardiac : Mother Family History of CV A or Stroke: Mother Family History of Ao rtic Aneurysm: INSURANCE PROVIDERS Payer name Policy type / Coverage type [place] [employer] party ID [place] MEDICAID (2) Medicaid [id number] ADVANCE DIRECTIVES Name Date DISCUSSED - NO DECISION MADE TREATMENT PLAN Date Name Performer [id number],C,S he has gained 18 lbs since she was last seen in October. She would like Ozempic for weight loss, has been on it in the past and it helped her lose over 20lbs I have written perscription for Ozempic as I believe it would be beneficial for her exercise tolerance to lose weight P CP should consult for director long term care management Sandoval Lacey MD [id number],C, B P today: 123/74 P rior BP: 135/81 (11/06/2022) Labs Reviewed: C reat: 0.83 (01/25/2021) C hol: 102 (01/25/2021) HDL: 22 (01/25/2021) Her updated medication list for this problem includes: Losartan 100 Mg Tablet (Losartan) ..... Take 1 tablet once a day Lasix 40 Mg Tablet (Furosemide) ..... Take one tab (40mg) mwfsun, 1.5 tablet (=60mg) on tthsat. Sandoval Lacey MD [id number],C,suggest she s top tizanidine Sandoval Lacey MD [id number],C,S he has gained 18 lbs since she was last seen in October. She would like Ozempic for weight loss, has been on it in the past and it helped her lose over 20lbs I have written perscription for Ozempic as I believe it would be beneficial for her exercise tolerance to lose weight Sandoval Lacey MD [id number],S,On xarelto Us ozzy Lacey MD [id number],C,C lass 2, appears compensated. H er updated medication list for this problem includes: Losartan 100 Mg Tablet (Losartan) ..... Take 1 tablet once a day Lasix 40 Mg Tablet (Furosemide) ..... Take one tab (40mg) mwfsun, 1.5 tablet (=60mg) on tthsat. Sandoval Lacey MD [id number],S, B P today: 135/81 P rior BP: 118/74 (05/08/2022) Labs Reviewed: C reat: 0.83 (01/25/2021) C hol: 102 (01/25/2021) HDL: 22 (01/25/2021) Her updated medication list for this problem includes: Losartan 100 Mg Tablet (Losartan) ..... Take 1 tablet once a day Lasix 40 Mg Tablet (Furosemide) ..... Take one tab (40mg) mwfsun, 1.5 tablet (=60mg) on tthsat. Sandoval Lacey MD [id number],S, Sandoval Lacey MD [id number],S,stable Sandoval Lacey MD [id number],S, B P today: 118/74 P rior BP: 118/72 (04/16/2022) Labs Reviewed: C reat: 0.83 (01/25/2021) C hol: 102 (01/25/2021) HDL: 22 (01/25/2021) Sandoval Lacey MD [id number],S,S eems atypcial and with the negative stress test I would not pursue a cardiac cath. Possibly can be sent to a GI doctor. Sandoval Lacey MD [id number],S,T he Patient was reencouraged to stop smoking. We'll' set her up for PFTs and a 6 minute walk test to evaluate for a pulmonary cause of her SOB. Evita Giancarlo Carranza NP [id number],S, c ontinue compression socks Evita Mondragon Tere PADILLA [id number],S, E xertional dyspnea persists. Last stress test in November 2020 was negative for ischemia, but given her symptoms she'd benefit from a repeat stress test and echo. Evita Mondragon Tere PADILLA [id number],B, B P today: 118/72 P rior BP: 147/78 (03/05/2022) Her updated medication list for this problem includes: Losartan 100 Mg Tablet (Losartan) ..... Take 1 tablet once a day Lasix 40 Mg Tablet (Furosemide) ..... Take one tab (40mg) mwfsun, 1.5 tablet (=60mg) on tthsat. Evitaflex Carranza NP [id number],S, Evita garcia NP [id number],S, Sandoval Lacey MD [id number],C,S OB persists and worsening, cannot go about routine tasks without getting SOB. Sandoval Laecy MD [id number],C,T oe numbness, leg and knee pain, cramps. Likely neuropathy. We will stop gabapentin as it provides no benefit. Sandoval Lacey MD [id number],W,P robalby due to pain in the legs. B P today: 180/90 P rior BP: 140/70 (04/07/2021) Labs Reviewed: C reat: 0.83 (01/25/2021) C hol: 102 (01/25/2021) HDL: 22 (01/25/2021) Sandoval Lacey MD [id number],C,mild Sandoval solano MD [id number],C,Quit smoking. Sandoval Lacey MD [id number],C,? Sandoval arias MD [id number],C,I am unsure what the reason is for her leg pain, but I am not sure it is vascular. Neuropathy? Sandoval Lacey MD [id number],C, B P today: 140/70 P rior BP: 160/80 (01/24/2021) Labs Reviewed: C reat: 0.83 (01/25/2021) C hol: 102 (01/25/2021) HDL: 22 (01/25/2021) Her updated medication list for this problem includes: Losartan 100 Mg Tablet (Losartan) ..... Take 1 tablet once a day Lasix 40 Mg Tablet (Furosemide) ..... Take one tab (40mg) mwfsun, 1.5 tablet (=60mg) on tthsat. Sandoval Lacey MD [id number],S,c ontinue compression socks, and await how her sx behave once she has received IV iron infusions. Sandoval Lacey MD [id number],S,S he received blood and iron pills, she is apparenlty still anemic and so will await further instructions from the hemmer automatic she has seen. Sandoval Lacey MD [id number],S,will recheck Sandoval Lacey MD [id number],S, Sandoval Lacey MD [id number],C,p robably from the pain B P today: 160/80 P rior BP: 130/70 (12/27/2020) Labs Reviewed: C reat: 0.91 (03/16/2020) C hol: 112 (07/03/2017) HDL: 27 (07/03/2017) Sandoval Lacey MD [id number],C,on xarelto Us ozzy Lacey MD [id number],W,i will stop her lipitor and give her a drug holiday also with her bilateral leg swelling, will like to make sure she doesn't have iliac vein compression W ill do a venogram with Ivus Sandoval aLcey MD Cardiology Sandoval Lacey MD Cardiology Sandoval [...] lose weight P CP should consult for senior care management Sandoval Lacey MD Cardiology: B P [...] go about routine tasks without getting SOB. aSndoval Lacey MD Cardiology:Toe numbn ess, leg and [...] so will await further instructions from the hemmer automatic she has seen. Sandoval Lacey MD Cardiology:will [...] night Orders: C OMPREHENSIVE METABOLIC PANEL, W/EGFR (60356) P ROBNP, N TERMINAL (33279) C BC (H/H, RBC, INDICES, WBC, PLT) [...] P FConsult : The FEV1, FVC and INC11-44% are reduced but the FEV1/FVC ratio is [...] day at night O rders: E KG (CPT-74308) C OMPREHENSIVE METABOLIC PANEL, W/EGFR (61317) P ROBNP, N TERMINAL (28507) C BC (H/H, RBC, INDICES, WBC, PLT) [...] One pill twice a day Orders: EKG (CPT-37833) 9 9215 HIGH Complex (CPT-64267) C omplete Echo (CPT-34821) F VC - 20998 (47006) F RC - 57156 (74061) D LCO - 34600 (96683) Anatoly Gil Electrophysiology fo llow up : H er updated medication list for this problem includes: Lasix 40 Mg Oral Tablet (Furosemide) ..... One tablet daily Metoprolol Tartrate 25 Mg Oral Tablet (Metoprolol tartrate) ..... One pill twice a day Cozaar 50 Mg Oral Tablet (Losartan potassium) ..... One a day at night Orders: 9 9215 HIGH Complex (CPT-01676) C omplete Echo (CPT-57432) F VC - 94130 (63321) F RC - 40972 (16110) D LCO - 45152 (70074) Anatoly Gil Electrophysiology follow up Alejandro Gil [...] Electrophysiology fo llow up:Orders: F VC - 20967 (52671) F RC - 99361 (38465) D LCO - 75596 (65315) Aston Harley Electrophysiology fo llow up:Advised patient [...] chedule Followup (*) 9 9214 MOD Complex (CPT-28540) Her updated medication list for this problem includes: Metoprolol Tartrate 25 Mg Oral Tablet (Metoprolol tartrate) ..... One pill twice a day Aston Harley Electrophysiology fo llow up:Echo today 04/08/18 shows EF 60%. Orders: E KG (CPT-48559) S chedule Followup (*) 9 9214 MOD Complex (CPT-68262) Her updated medication list for this problem [...] a day Orders: 9 9215 HIGH Complex (CPT-30847) C omplete Echo (CPT-55297) C OMPREHENSIVE METABOLIC PANEL, W/EGFR (77443) P ROBNP, N TERMINAL (48498) S chedule Followup (*) Aston Harley Electrophysiology [...] Oximetry 6 minute walk test DLCO - 45457 FRC - 33869 FVC - 76159 Sleep Study Home PROTHROMBIN TIME WIT H INR LIPID PANEL CBC (INCLUDES DIFF/P LT) BASIC METABOLIC PANE L W/EGFR Holter Monitor 24 Hr Venous Doppler Bilat eral LE - Reflux Arterial Duplex Bi-L ower EX Stress Regadenoson TSH, free T4, total T3 CBC (H/H, RBC, INDIC ES, WBC, PLT) PROBNP, N TERMINAL COMPREHENSIVE METABO LIC PANEL, W/EGFR DLCO - 64959 FRC - 23248 FVC - 96374 Complete Echo DLCO - 62281 FRC - 45742 FVC - 22361 PROBNP, N TERMINAL COMPREHENSIVE METABO LIC PANEL, W/EGFR Complete Echo Complete Echo DLCO - 86564 FRC - 15359 FVC - 24293 LIPID PANEL COMPREHENSIVE METABO LIC PANEL, W/EGFR LIPID PANEL CBC (H/H, RBC, INDIC ES, WBC, PLT) COMPREHENSIVE METABO LIC PANEL, W/EGFR Arterial Duplex Bi-L ower EX Aorta Duplex Ultraso und (AAA) DLCO - 85347 FRC - 06314 FVC - 65182 STR - Adenosine Complete Echo HISTORY OF PROCEDURES Procedure Date Procedure Name Provider Procedure Notes S tatus EKG Sandoval Lacey MD completed EKG Sandoval Lacey MD completed 6 minute walk test Danelle fowler MD completed Spirometry Danelle arreola MD completed FVC / MVV - 92646 Danelle jenkins MD completed BLOOD COUNT HEMOGLOBIN Danelle gonzalez MD completed FRC - 86321 Danelle arreola MD completed SpO2 w/o 6min walk/titration Danelle Prieto MD completed SVC - 84863 Danelle arreola MD completed DLCO - 89373 Danelle arreola MD completed EKG Sandoval Lacey MD completed Holter, 24 or 48 Sandoval Lacey MD com pleted EKG Danelle arreola MD completed FVC / MVV with bronchodilator - 01250 Danelle Prieto MD completed BLOOD COUNT HEMOGLOBIN Danelle gonzalez MD completed FRC - 10338 Danelle arreola MD completed SpO2 w/o 6min walk/titration Danelle Prieto MD completed DLCO - 68501 Danelle arreola MD completed EKG Danelle arreola MD completed FVC / MVV with bronchodilator - 82408 Danelle Prieto MD completed BLOOD COUNT HEMOGLOBIN Danelle gonzalez MD completed FRC - 20163 Danelle arreola MD completed SpO2 w/o 6min walk/titration Danelle Prieto MD completed DLCO - 08697 Danelle arreola MD completed Schedule Followup Danelle jenkins MD in 1 year completed EKG Danelle arreola MD completed Schedule Followup Danelle jenkins MD in 1 wk completed EKG Danelle arreola MD completed EKG Danelle arreola MD completed SNOMED-CT: 293519403275753 Current Medications Documented Danelle Prieto MD completed Schedule Followup Danelle jenkins MD 3 months completed EKG Danelle arreola MD completed SNOMED-CT: 078458780163702 Current Medications Documented Danelle Prieto MD completed Stress EKG Aris Mac MD complete d Regadenoson, 4 units Danelle tai MD completed Cardiolite, 2 units Danelle garza MD completed SPECT Images Elise Arenas MD com pleted FVC / MVV with bronchodilator - 01846 Danelle Prieto MD completed BLOOD COUNT HEMOGLOBIN Danelle gonzalez MD completed FRC - 50961 Danelle arreola MD completed SpO2 - 44072 Danelle arreola MD completed DLCO - 26180 Danelle arreola MD completed EKG Danelle arreola MD completed SNOMED-CT: 996804483395623 Current Medications Documented Danelle Prieto MD completed
--- OUTSIDE RECORDS SUMMARY | 2025-01-08 15:45 | XMS_ITS | Encounter Summary ---
Author Organization [facility] Address [address] [place] [address] Phone Care Team Providers Care Equipment Worker Name Role Phone Mu Oleary Primary Care Provider Minh Bazan MD Unavailable Sandoval Lacey MD Unavailable Reason for Visit * Reason Comments Medication Refill Encounter Details Date Type Department Care Team (Late st Contact Info) Description 01/04/2022 Refill [facility] [address] [phone] Minh Bazan MD [address] [address] Medication Refill Social History Tobacco [...] CDT Office Visit [facility] [place] [address] [place] [phone] Minh Bazan MD [address] [facility] [address] [place], [place] [id number] documented as of this encounter Visit Diagnoses Not on filedocumented in this encounter Additional Health Concerns Assessment Noted Time PHQ-9 Depression Total Score: 0 05/16/20 10:46 AM CDT documented as of this encounter Care Teams Equipment Worker Relationship Specialty Start Date End Date Mu Oleary PA [address] [place] [id number] PCP - General Physician Commercial Loan Analyst 03/21/21 Minh Bazan MD [address] [place] [phone] Consulting Physician Oncology 03/21/21 Sandoval Lacey MD [address] [place] [address] [employer] Cardiovascular Disease - Cardiology 08/25/21 documented as of this encounter
--- OUTSIDE RECORDS SUMMARY | 2025-01-08 15:45 | XMS_ITS | Clinical Summary ---
Author Organization [facility] Address [address], [facility] [address] [place] [address] Phone Care Team Providers Care Custom Van Converter Name Role Phone Mu Oleary Primary Care Provider Minh Bazan MD Unavailable [phone] Sandoval Lacey MD Unavailable Allergies No known active allergies Medications albuterol 108 (90 Base) MCG/ACT Aerosol Solution Ventolin HFA 90 mcg/actuation aerosol inhaler 1 Active Symbicort 160-4.5 MCG/ACT Aerosol 1 Active furosemide (LASIX) 20 MG Tablet 1 Active HYDROcodone-ac etaminophen (NORCO) 10-325 MG Tablet 1 Active hydrOXYzine [...] 7 mL 2 2 Active nystatin (MYCOSTATIN) 335298 UNIT/GM Cream APPLY TOPICALLY TO AFFECTED AREA [...] MOUTH EVERY DAY BEFORE MEALS 2 Active promethazine-d extromethorpha n (PROMETHAZINE- DM) 6.25-15 MG/5ML Syrup 3 Active diphenoxylate- atropine (LOMOTIL) 2.5-0.025 MG Tablet take one tablet by mouth three times daily as needed 4 Active ergocalciferol (VITAMIN D) 17868 UNIT Capsule TAKE ONE CAPSULE BY MOUTH [...] DAILY EVERY MORNING & EVENING 4 Active budesonide-for moterol fumarate (Symbicort) 160-4.5 MCG/ACT Aerosol Inhale 2 puffs twice a day by inhalation route. Active OneTouch Ultra Strip USE TO CHECK BLOOD SUGAR TWICE DAILY EVERY MORNING & EVENING 4 Active Lancets (OneTouch Delica Plus [id number]) Misc USE TO CHECK BLOOD SUGAR TWICE DAILY EVERY MORNING & EVENING 4 Active amLODIPine (NORVASC) 5 MG Tablet Take 5 mg by mouth daily. 4 Active Trulicity 0.75 MG/0.5ML Solution Auto-injector INJECT 0.75mg UNDER THE SKIN EVERY WEEK Active FLUoxetine HCl, PMDD, 20 MG Tablet Take 1 Tablet by mouth daily. Active traZODone (DESYREL) 100 MG Tablet TAKE ONE-HALF TO ONE TABLET BY MOUTH EVERY NIGHT AT BEDTIME NEEDED FOR SLEEP Active rivaroxaban (Xarelto) 20 MG TabletIndicati ons:History of PE Take 1 Tablet by mouth daily (with dinner). Take with food. Indications: History of PE 90 Tablet 5 Active rivaroxaban (Xarelto) 20 MG TabletIndicati ons:History of PE Take 1 Tablet by mouth daily (with dinner). Take with food. 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) 12/08/2024 10:45 AM CDT Clinical Support [facility] [address] [address] Nurse, [facility] [place] Anemia of unknown etiology (Primary Dx); Other iron deficiency anemia; Iron deficiency anemia, unspecified iron deficiency anemia type 12/08/2024 10:30 AM CDT Office Visit [facility] [address] [address] Minh Bazan MD Anemia of unknown etiology (Primary Dx); 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) 12/08/2024 Travel 10/13/2024 10:00 AM CDT Clinical Support [facility] [address] [address] Nurse, [facility] [place] Iron deficiency anemia, unspecified iron deficiency anemia type (Primary Dx); Iron deficiency anemia due to chronic blood loss; Venous insufficiency; History of pulmonary embolism 10/11/2024 Telephone [facility] [address] [address] Minh Bazan MD [place] Call / lab results 10/10/2024 12:30 PM CDT Lab [facility] [address] [address] Lab, [facility] [place] Anemia of unknown etiology; Iron deficiency anemia, unspecified iron deficiency anemia type 10/10/2024 Travel 10/09/2024 Telephone [facility] [address] [address] Mihn Bazan MD [place] Call / Low Iron from Last 3 Months Immunizations Immunization Administration [...] Sign Reading Time Taken Comments Blood Pressure 140/76 12/08/2024 10:30 AM CDT Pulse 72 12/08/2024 10:30 AM CDT Temperature 36.6 C (97.8 F) 12/08/2024 10:30 AM CDT Respiratory Rate 18 12/08/2024 10:3 0 AM CDT Oxygen Saturation 96% 12/08/2024 10: 30 AM CDT Inhaled Oxygen Concentration - - Weight 112.4 kg (247 lb 12.8 oz) 2024 10:30 AM CDT Height 154.9 cm (5' 1) 12/08/2024 10:3 0 AM CDT Body Mass Index 46.82 12/08/2024 10:30 AM CDT Plan of Treatment Upcoming Encounters Date Type Department Care Team (Late st Contact Info) Description 03/09/2025 10:30 AM CDT Office Visit [facility] [address] [address] Minh Bazan MD [address] [place], [place] [id number] Health Maintenance Due Date Last Done Comments [...] Every 10 Years (Adults With 1 Tdap) 10/16/2034 10/16/2024, 06/27/2014 Influenza Immunization Completed , 07/08/2021, 05/30/2019, Additional history exists DTaP/Tdap/Td Immunization Discontinued 10/16/2024, 09/2013 Hepatitis B Immunization Aged Out No longer eligible based on patient's age to complete this topic Human Papillomavirus (HPV) Immunization Aged Out No longer eligible based on patient's age to complete this topic Meningococcal Immunization (ACWY) Aged Out No longer eligible based on patient's age to complete this topic Rotavirus Immunization Aged Out No lo nger eligible based on patient's age to complete this topic Procedures Procedure Name Priority Date/Time Associated Diagnosis Comments CBC WITH AUTO DIFF OH Routine 12/08/2024 10:49 AM CDT IRON W/ IRON BINDING CAPACITY OH Routine 12/08/2024 10:49 AM CDT Anemia of unknown etiology 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 IRON 54 50 - 212 ug/dL [facility] UIBC 290 155 - 355 ug/dL [facility] TIBC 344 261 - 478 ug/dl [facility] % Saturation 16(L) 20 - 50 % [facility] Blood 12/08/2024 10:4 9 AM CDT Narrative [facility] - 12/08/2024 11:50 AM CDT Release to patient->Immediate us Minh Bazan MD LAB SEND OUTS Final Result [facility] [place] [address], * (ABNORMAL) CBC WITH AUTO DIFF OH (12/08/2024 10:49 AM CDT) Only the most recent of2 resultswithin the time period is included. WBC 7.8 4.0 - 10.0 10*3/uL [facility] HGB 11.5 11.2 - 15.7 g/dL [facility] HCT 37.2 34.1 - 44.9 % [facility] PLT 206 163 - 369 10*3/uL [facility] MPV 10.7 9.4 - 12.[address] [facility] RBC 4.54 3.93 - 5.22 10*6/uL [facility] MCV 82 79 - [address] [facility] MCH 25.3(L) 25.6 - 32.[address] [facility] MCHC 30.9(L) 32.2 - 36.5 g/dL [facility] RDW 16.2(H) 11.6 - 14.4 % [facility] Neutrophils % 58.3 36.0 - 66.0 % [facility] Lymphocytes % 28.3 19.0 - 40.0 % [facility] Monocytes % 10.3 4.1 - 12.1 % [facility] Eosinophils % 2.1 0.0 - 3.5 % [facility] Basophils % 0.6 0.0 - 1.0 % [facility] Absolute Neutrophils 4.6 1.4 - 6.6 10*3/uL [facility] Absolute Lymphocytes 2.2 0.8 - 4.0 10*3/uL [facility] Absolute Monocytes 0.8 0.2 - 1.2 10*3/uL [facility] Absolute Eosinophils 0.2 0.0 - 0.4 10*3/uL [facility] Absolute Basophils 0.1 0.0 - 0.1 10*3/uL [facility] 12/08/2024 10:4 9 AM CDT us Minh Bazan MD LAB SEND OUTS Final Result Performing Organization Address City/State/[facility] Co de Phone Number [facility] [place] [address], * FERRITIN (12/08/2024 10:49 AM CDT) Only the most recent of2 resultswithin the time period is included. Ferritin 95 11 - 307 ng/mL [facility] Blood 12/08/2024 10:4 9 AM CDT Narrative [facility] - 12/08/2024 3:36 PM CDT Release to patient->Immediate Minh Bazan MD CHEMISTRY ORDERABLES Final R esult [facility] [place] [address], * LACTATE DEHYDROGENASE (LD) (10/10/2024 12:13 PM CDT) LDH 147 140 - 271 U/L [facility] Blood 10/10/2024 12:1 3 PM CDT Narrative [facility] - 10/10/2024 1:52 PM CDT Release to patient->Immediate Minh Bazan MD CHEMISTRY ORDERABLES Final R esult Performing Organization Address City/[facility]/ZIP Co de Phone Number [facility] [place] [address], [place] [phone] * (ABNORMAL) CMP (COMPREHENSIVE METABOLIC PANEL) (10/10/2024 12:13 PM CDT) Glucose 146(H) 70 - 105 mg/dL [facility] Blood Urea Nitrogen 15 7 - 25 mg/dL [facility] Creatinine 0.8 0.6 - 1.2 mg/dL [facility] Sodium 140 136 - 145 mEq/L [facility] Potassium 4.3 3.5 - 5.1 mEq/L [facility] Chloride 108(H) 98 - 107 mEq/L [facility] Bicarbonate 23 21 - 31 mEq/L [facility] Total Bilirubin 0.2(L) 0.3 - 1.0 mg/dL [facility] Alk. Phosphatase 89 34 - 104 U/L [facility] Aspartate Aminotransferase 15 13 - 39 U/L [facility] Alanine Aminotransferase 22 7 - 52 U/L [facility] Total Protein 6.5 6.4 - 8.9 g/dL [facility] Albumin 3.7 3.5 - 5.7 g/dL [facility] Calcium 9.2 8.6 - 10.3 mg/dL [facility] Anion Gap 13.3 7.0 - 15.0 mEq/L [facility] Globulin 2.8 2.0 - 3.5 g/dL [facility] EGFR 84 >60 ml/min/1. 73m2 [facility] Comment: This eGFR is calculated using 2020 CKD-EPI Creatinine equation without race modifier based on the NKF-ASN task force recommendations Equation: gQBX=675*min(SCr/k,1)a*max(SCr/k,1)-1.200*0.9938Age*1.012 (if female), where SCr is serum creatinine, k is 0.7 for females and 0.9 for males, and a is -0.241 for females and -0.302 for males Blood 10/10/2024 12:1 3 PM CDT Narrative [facility] - 10/10/2024 1:55 PM CDT Release to patient->Immediate IS THE PATIENT REQUIRED TO BE FASTING FOR 8 HOURS?->No us Minh Bazan MD CHEMISTRY ORDERABLES Final R esult [facility] [address] [place] [address], from Last 3 Months Insurance MEDICAID [employer] Care Teams Custom Van Converter Relationship Specialty Start Date End Date Mu Oleary PA [facility] [place] [address] PCP - General Physician Security Rover 03/21/21 Minh Bazan MD [address] [place] [phone] Consulting Physician Oncology 03/21/21 Sandoval Lacey MD [address] [place] [address] Manager Transfusion Cardiovascular Disease - Cardiology 08/25/21
--- OUTSIDE RECORDS SUMMARY | 2025-01-08 15:45 | XMS_ITS | Continuity of Care Document ---
Author Organization [facility] Address [address] [place] [address] Phone Care Team Providers Care Insole Doubler Name Role Phone Cecy Farmer MD Unavailable [...] Care Centers, [address] [facility] [address], [place], [place], [id number], tel:[phone] [facility] No Information [address], [place], [address], [place]. tel:[phone] [facility], [address] [place] [address], [id number], tel:[phone] [facility] No Information [address] D[address], [place], [address], [place]. tel:[phone] New (Level 4) OFFICE/OUTPA TIENT VISIT [facility], [address] [place] [address], [id number], [place] tel:[phone] [facility] allergies and asthma (chief complaint) Body mass index (BMI) 36.0-36.9, adultEssential (primary) hypertensionSeve re persistent asthmaChronic rhinitis [address], [place], [address], [place]. tel:[phone] Referring Provider: Jax Mixon, [address] [facility] [address], [address]. tel:[phone] Family History Family Member Type Diagnosis Age At Onset Mother Problem Asthma Problem No family history of Allergi c rhinitis Payers Payer name Insurance type Covered republican ID Demi friedman(tone Mccracken [id number] Social History Type Description Quantity Date Captured Comments Alcohol Use Details Unknown Caffeine Use Details Unknown Tobacco Use Status Smoking Status No Information Sex Female Chief Complaint And Reason For Visit No Information Reason For Referral Reason For Referral No Information Plan Of Treatment Date Type Action Status Future Order: Lab Order CBC With Differential ([id number]), Sent on: Sent Future Order: Lab Order Immunogl obulin E, Total ([id number]), Sent on: Sent History Of Present Illness [...]
--- OUTSIDE RECORDS SUMMARY | 2025-01-08 15:45 | XMS_ITS | Clinical Summary ---
Author Organization [facility] Address [address] 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 This disclosure is being madepursuant to the Care Everywhere program and may not contain all information available regarding this patient. 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
== END 2025-01-08 14:37 | disposition home or self-care (01) ==
LOC: ANHIMG 14:37
PROVIDERS: Visit Provider Internal Medicine Endocrinology, Diabetes & Metabolism
DX: M85.89 Other specified disorders of bone density and structure, multiple sites (principal); Z78.0 Asymptomatic menopausal state; E05.90 Thyrotoxicosis, unspecified without thyrotoxic crisis or storm
CPT/HCPCS: 77080